=== PATIENT | male | born 1965 | race Caucasian/White ===

== ENCOUNTER 2017-08-29 07:27 | Inpatient (IN) | payer MEDICAID ==
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
--- NOTE | 2017-08-29 07:44 | CPEKG ---
Heart Rate: 103 RR Interval: 583 P-R Interval: 180 QRSD Interval: 90 QT Interval: 364 QTC Interval: 477 P Justice: 64 QRS Justice: -3 T Wave Justice: 14 EKG Severity - BORDERLINE ECG - EKG Impression: SINUS TACHYCARDIA EKG Impression: BORDERLINE T ABNORMALITIES, ANTERIOR LEADS EKG Impression: BORDERLINE PROLONGED QT INTERVAL Electronically Signed By: Cyndi Yoon 29-Aug-2017 08:13:20
[2017-08-29] MEDS ORDERED: ASPIRIN 81 MG CHEWABLE TAB PO ONE (07:51)
[2017-08-29] MEDS ORDERED: NITROGLYCERIN 0.4 MG BTL SL PRN (07:51)
[2017-08-29] MEDS ORDERED: PREGABALIN 150 MG CAP PO ONE (08:03)
[2017-08-29 08:11] LABS: PLATELET COUNT 176 10^3/uL (150-400)
[2017-08-29 08:20] LABS: INR 1.65 (0.83-1.16); PROTIME(PATIENT) 19.6 SEC (12.0-15.0)
[2017-08-29] MEDS ORDERED: HYDROmorphONE/DILAUDID 1 MG/ML INJ IVP ONE ×2 (08:40→09:22)
[2017-08-29] MEDS ORDERED: OXYCODONE/APAP 5/325 TAB PO ONE (10:01)
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
[2017-08-29] MEDS ORDERED: NON-FORMULARY NEW DRUG (Oxycodone Hcl/Acetaminophen [Percocet 10-325 Mg Tablet] 1 EACH) PO PRN (13:17)
[2017-08-29] MEDS ORDERED: OXYCODONE/APAP 5/325 TAB PO PRN (13:20)
[2017-08-29] MEDS ORDERED: METOPROLOL SUCCINATE XR 100 MG TAB PO SCH (13:30)
[2017-08-29] MEDS ORDERED: BISACODYL 10 MG SUPP PR PRN (13:31)
[2017-08-29] MEDS ORDERED: HYDROmorphONE/DILAUDID 1 MG/ML INJ IVP PRN (13:31)
[2017-08-29] MEDS ORDERED: LACTULOSE 20 GM/30 ML UDCUP PO PRN (13:31)
[2017-08-29] MEDS ORDERED: MAGNESIUM HYDROXIDE 30 ML UDCUP PO PRN (13:31)
[2017-08-29] MEDS ORDERED: METOPROLOL TARTRATE 5 MG/5 ML INJ IVP ONE ×2 (13:47→14:16)
[2017-08-29] MEDS ORDERED: ONDANSETRON DISINTEGRATING 4 MG TAB PO PRN (13:50)
[2017-08-29] MEDS ORDERED: ACETAMINOPHEN 325 MG TAB PO PRN (13:50)
[2017-08-29] MEDS ORDERED: ONDANSETRON 4 MG/2 ML VIAL IVP PRN (13:50)
[2017-08-29] MEDS ORDERED: LR 1,000 ML IV SCH (14:00)
[2017-08-29] MEDS ORDERED: IOPAMIDOL (ISOVUE 370) 100 ML BTL IV ONE (14:01)
[2017-08-29] MEDS: HYDROmorphONE/DILAUDID 1 MG/ML INJ IVP PRN ×4 (14:01→21:20)
[2017-08-29] MEDS: guaiFENesin 600 MG TAB.ER PO SCH ×2 (14:43→19:52)
[2017-08-29] MEDS: OXYCODONE/APAP 5/325 TAB PO PRN ×2 (14:44→19:51)
--- NOTE | 2017-08-29 14:47 | GHP ---
[f rep st] HISTORY AND PHYSICAL DATE OF ADMISSION: 08/29/2017 CHIEF COMPLAINT: Chest pain, shortness of breath. HISTORY OF PRESENT ILLNESS: This is a 51-year-old male with a history of coronary artery disease, PE , who presents with chest pain and shortness of breath. This started about 1 a.m., associated with s ignificant sputum production. [facility], and has been exposed to m any other people who are sick. He has had some subjective fevers as well as myalgias. Chest pain de scribed initially as sharp, stabbing, currently more dull, centrally located. This is reminiscent of his previous PE. He tells me he had an AZ 5 years ago, which prompted a catheterization, at which t gayle he did not have any stents placed. He has severe all over body pain, which is worse now than nor mal, but he is on chronic narcotics. Likely, did not take his Lyrica today. He is tells me he has b een compliant with his medications, including Xarelto and metoprolol, though he does not know them by name. PAST MEDICAL/SURGICAL HISTORY: 1. Coronary artery disease, with no interventions. 2. PE 1-1/2 years ago. 3. History of atrial fibrillation, on Xarelto. 4. Hypertension. 5. Hyperlipidemia. 6. Bilateral ankle fractures. 7. Left hip fracture. 8. Lumbar fractures. 9. Chronic pain, on continuous narcotics. MEDICATIONS: Please see medication reconciliation. ALLERGIES: No known drug allergies. FAMILY HISTORY: Both parents had an AZ at a young age. SOCIAL HISTORY: He is currently homeless. He has only been homeless for a very short time. He was in rehab up until about 3 weeks ago, given his left hip surgery. He occasionally drinks. He does no t smoke. REVIEW OF SYSTEMS: 10-point Review of Systems is conducted and is negative except per HPI. PHYSICAL EXAM: VITAL SIGNS: Blood pressure 185/93, heart rate 120, respiration rate 16, saturating 98% on 2 L, temperature is 37.3. GENERAL: A pleasant man who is resting comfortably, in no acute di stress. HEENT: Shows him to be normocephalic, atraumatic. CARDIOVASCULAR: Shows him to be tachyca rdic but regular. There are no murmurs, rubs, or gallops. PULMONARY: Lungs clear to auscultation b ilaterally, though he has diminished breath sounds. ABDOMEN: Soft, nontender, nondistended. SKIN: Shows no rash. : Shows no [place]. NEUROLOGIC: Shows him to be alert and oriented x3. He is mov ing all extremities. PSYCHIATRIC: Shows normal mood and affect. EXTREMITIES: Shows left knee to h ave significant abrasions and ecchymosis. LABS: White count is 10.1, hemoglobin is 12, platelets are 187. INR was 1.65. Basic metabolic pane l is normal. Troponin is negative. BNP is 51. DATA: 1. Lower extremity ultrasound is negative for DVT. 2. Knee x-ray shows negative for acute fracture. 3. Chest x-ray, which I personally viewed and interpreted, shows interstitial infiltrates. 4. EKG, which I personally viewed and interpreted, shows sinus rhythm. The rate is 103. He has T-w ave flattening in aVF. IMPRESSION AND PLAN: 1. Chest pain: Musculoskeletal, pulmonary embolus, acute coronary syndrome are all in the different ial. Also, potentially due to a pneumonia. I am unclear on his reliability in terms of his medicati on compliance, although his INR would argue that he has been taking Xarelto. Regardless, will get CT angio, trend his troponins, repeat an EKG tomorrow, treat musculoskeletal pain for now. If he had a n acute myocardial infarction at 1 a.m., I would suspect his troponin would have already been elevate d. Will likely get an inpatient Lexiscan test given his history, pending clinical course. 2. Tachycardia: Due to infection versus pulmonary embolus. Will check CT angiogram, which will als o give us a better look at his lungs. Sent respiratory viral panel PCR, blood cultures, sputum cultu re. Will empirically treat him with antibiotics. Will provide him with a liter bolus of lactated Ri nger's, and then continue lactated Ringer's. Chest x-ray was questionably volume overloaded, though I think this more represents a viral or bacterial process. Will also strongly consider intravenous L opressor, given his chest pain. 3. Coronary artery disease: Continue aspirin, Xarelto for now. 4. Pulmonary embolus a year and half ago: Continue Xarelto for now. 5. Atrial fibrillation: Currently sinus tachycardia. He is on Xarelto and metoprolol. 6. Hypertension: Metoprolol. 7. Hyperlipidemia: Statin. 8. Chronic pain on continuous narcotics: Will provide him with intravenous Dilaudid for now, as wel l as oral Percocet. Will continue his Lyrica. 9. Code status: He is clear that he would like to be do not resuscitate. He clearly understands e implications of this. 10. Venous thromboembolism risk: Checking CT angiogram. Continue Xarelto. /[id number]/MODL
[2017-08-29] MEDS ORDERED: NON-FORMULARY NEW DRUG (Pregabalin [Lyrica] 200 MG) PO SCH (16:00)
[2017-08-29] MEDS: PREGABALIN 100 MG CAP PO SCH ×2 (16:18→21:20)
[2017-08-29] MEDS: LORazepam 1 MG TAB PO PRN ×2 (17:24→21:20)
--- NOTE | 2017-08-29 17:27 | CPEKG ---
Heart Rate: 108 RR Interval: 556 P-R Interval: 180 QRSD Interval: 86 QT Interval: 352 QTC Interval: 472 P [place]: 48 QRS [place]: -16 T Wave [place]: 10 EKG Severity - OTHERWISE NORMAL ECG - EKG Impression: SINUS TACHYCARDIA EKG Impression: BORDERLINE LEFT AXIS DEVIATION Electronically Signed By: Giovanni Barbosa 31-Aug-2017 07:56:16
[2017-08-29] MEDS: METOPROLOL TARTRATE 50 MG TAB PO SCH (17:38)
[2017-08-29] MEDS: LR 1,000 ML IV SCH (19:51)
[2017-08-29] MEDS: SENNOSIDES/DOCUSATE SODIUM TAB PO SCH (19:52)
[2017-08-29] MEDS: ATORVASTATIN CALCIUM 10 MG TAB PO SCH (19:52)
[2017-08-30] MEDS: OXYCODONE/APAP 5/325 TAB PO PRN ×5 (01:06→20:48)
[2017-08-30] MEDS: HYDROmorphONE/DILAUDID 1 MG/ML INJ IVP PRN ×11 (01:06→23:06)
[2017-08-30] MEDS: LR 1,000 ML IV SCH (04:17)
[2017-08-30 04:20] LABS: PLATELET COUNT 163 10^3/uL (150-400)
[2017-08-30] MEDS ORDERED: METOPROLOL SUCCINATE XR 100 MG TAB PO SCH (09:00)
[2017-08-30] MEDS: PREGABALIN 100 MG CAP PO SCH ×3 (09:23→20:48)
[2017-08-30] MEDS: guaiFENesin 600 MG TAB.ER PO SCH ×2 (09:23→20:47)
[2017-08-30] MEDS: SENNOSIDES/DOCUSATE SODIUM TAB PO SCH ×2 (09:24→20:47)
[2017-08-30] MEDS: ASPIRIN 81 MG CHEWABLE TAB PO SCH (09:24)
[2017-08-30] MEDS: METOPROLOL TARTRATE 50 MG TAB PO SCH ×2 (09:24→20:47)
[2017-08-30] MEDS: RIVAROXABAN 20 MG TAB PO SCH (09:24)
[2017-08-30] MEDS: POLYETHYLENE GLYCOL 3350 17 GM PKT PO PRN (10:23)
--- NOTE | 2017-08-30 14:46 | HOSPPROG ---
Hospitalist Progress Note Assessment/Plan: # pneumonia, ddx coronavirus vs bacterial - cont empiric levaquin given degree of tackycardia yesterday, consider dc abx tomorrow # chest pain, reported TN - joseph tomorrow # chronic pain on continuous narcotics - cont IV and PO; we discussed that we will wean iv narcotics tomorrow # L knee swelling/ecchymosis - reports inability to bear weight - CT today - PT/OT - may need SNF - follow with Dr Barry for ortho issues # tachycardia (sinus) - may have been d/t pain resolved today - stop IVF - cont metop # htn - cont metop, follow # hx PE - xarelto # hx a-fib - NSR now, cont metop and xarelto Subjective: still all over pain, mostly in chest, back and legs Objective: Vital Signs Temp Pulse Resp BP Pulse Ox 36.7 C 78 16 143/77 H 98 08/30/17 12:30 08/30/17 12:30 08/30/17 12:30 08/30/17 12:30 08/30/17 12:30 Microbiology 08/29/17 16:20 - Final Sputum, Expectorated 08/29/17 12:45 Respiratory Panel (PCR) - Final Nasal, Sinus - Swab Coronavirus Nl63 Detected Laboratory Results 08/30/17 04:00 08/30/17 04:00 08/29/17 08/30/17 08/31/17 05:59 05:59 05:59 Intake Total 4880 Output Total 3100 550 Balance 1780 -550 PT 19.6 SEC (12.0-15.0) H 08/29/17 08:04 INR 1.65 (0.83-1.16) H 08/29/17 08:04 CTA reviewed tele reviewed - Physical Exam Constitutional: no apparent distress, appears nourished Cardiovascular: regular rate and rhythym, no murmur, rub, or gallop Respiratory: no respiratory distress, no rales or rhonchi, clear to auscultation Gastrointestinal: normoactive bowel sounds, soft, non-tender abdomen, no palpable masses Musculoskeletal: other (marked L knee swelling and ecchymosis) ICD10 Worksheet Patient Problems: Problems Problem Status Onset Chest pain Acute Chronic pain Acute
[2017-08-30] MEDS: ATORVASTATIN CALCIUM 10 MG TAB PO SCH (20:47)
[2017-08-30] MEDS: LISINOPRIL 10 MG TAB PO SCH (20:48)
[2017-08-31] MEDS: HYDROmorphONE/DILAUDID 1 MG/ML INJ IVP PRN ×8 (01:26→22:20)
[2017-08-31] MEDS: OXYCODONE/APAP 5/325 TAB PO PRN ×5 (01:28→20:18)
[2017-08-31] MEDS: LORazepam 1 MG TAB PO PRN ×3 (03:19→22:25)
[2017-08-31 04:17] LABS: PLATELET COUNT 171 10^3/uL (150-400)
[2017-08-31] MEDS: LISINOPRIL 10 MG TAB PO SCH ×2 (08:41→20:19)
[2017-08-31] MEDS: RIVAROXABAN 20 MG TAB PO SCH (08:41)
[2017-08-31] MEDS: guaiFENesin 600 MG TAB.ER PO SCH ×2 (08:41→20:19)
[2017-08-31] MEDS: METOPROLOL TARTRATE 50 MG TAB PO SCH ×2 (08:41→20:19)
[2017-08-31] MEDS: ASPIRIN 81 MG CHEWABLE TAB PO SCH (08:41)
[2017-08-31] MEDS: PREGABALIN 100 MG CAP PO SCH ×3 (08:41→20:20)
[2017-08-31] MEDS: SENNOSIDES/DOCUSATE SODIUM TAB PO SCH ×2 (08:41→20:19)
[2017-08-31] MEDS ORDERED: REGADENOSON 0.4 MG/5 ML SYR IVP ONE (10:46)
--- NOTE | 2017-08-31 11:35 | PDMN ---
Medical Necessity Medical necessity: Change to IP, as of 08/30/17, per MD; los >2 mn for ongoing management of pneumonia, chest pain r/t reported IL, L knee swelling/ecchymosis ; admit for further workup/monitoring, IV abx/pain meds & therapies; hx AFIB on AC, PE, HTN, CAD; per progress note & order 08/30/17
[2017-08-31] MEDS ORDERED: LORazepam 2 MG/ML INJ IVP ONE (12:16)
[2017-08-31] MEDS ORDERED: HYDROmorphONE/DILAUDID 1 MG/ML INJ IVP ONE (12:17)
--- NOTE | 2017-08-31 12:19 | HOSPPROG ---
Hospitalist Progress Note Assessment/Plan: # pneumonia, ddx coronavirus vs bacterial - stop abx today and follow # chest pain, reported NM - joseph today if he can tolerate # chronic pain on continuous narcotics - cont IV and PO; wean dilaudid IV today to 0.5mg IV Q2H # L knee swelling/ecchymosis/hematoma - reports inability to bear weight - discussed with Dr Garnett who will consult - PT/OT # tachycardia (sinus) - resolved # htn - cont metop, follow # hx PE - xarelto # hx a-fib - NSR now, cont metop and xarelto Subjective: unable to tolerate NM stress test; very concerned about reducing dilaudid Objective: Vital Signs Temp Pulse Resp BP Pulse Ox 37.0 C 95 18 127/77 H 98 08/31/17 08:00 08/31/17 08:00 08/31/17 08:00 08/31/17 08:00 08/31/17 08:00 Laboratory Results 08/31/17 04:06 08/30/17 08/31/17 09/01/17 05:59 05:59 05:59 Intake Total 1350 Output Total 2400 Balance -1050 PT 19.6 SEC (12.0-15.0) H 08/29/17 08:04 INR 1.65 (0.83-1.16) H 08/29/17 08:[address] Garnett - Physical Exam Constitutional: obese Cardiovascular: regular rate and rhythym, no murmur, rub, or gallop Respiratory: no respiratory distress, no rales or rhonchi, clear to auscultation Gastrointestinal: normoactive bowel sounds, soft, non-tender abdomen, no palpable masses ICD10 Worksheet Patient Problems: Problems Problem Status Onset Chest pain Acute Chronic pain Acute
--- NOTE | 2017-08-31 14:09 | PDCARST ---
CAR Stress Test Results Type of Stress Test: Lexiscan stress test Indication: cp Description of Procedure: After informed consent was obtained, pt was established to ECG, blood pressure, HR and oximetry monitoring. STRESS EKG AND HEMODYNAMIC DATA. Resting heart rate: 76 BPM. Resting ECG: SR. Resting blood pressure: 122/78 mmHg. O2 saturation at rest: 98%. Peak heart rate: 109 BPM. Peak blood pressure: 118/70 mmHg. Arrhythmias: Rest: Stress: Recovery: none. The patient experienced no typical symptoms of angina during stress or recovery. Stress/Infusion ECG: No change in rhythm with no significant ST/T wave changes. Stress/infusion O2 saturation: 98% Impression: Uneventful lexiscan infusion. Conclusion: Await nuclear images.
--- NOTE | 2017-08-31 16:24 | GCON ---
[f rep st] CONSULTATION REASON FOR CONSULTATION: Left knee pain. HISTORY OF PRESENT ILLNESS: The patient is a 51-year-old, with a 2-day history of left knee pain. H e states that he struck the lateral aspect of his knee on an elevator door, precipitating his symptom s. He does have a history of knee arthrosis and states that he was told by the surgeon who performed his left hip arthroplasty that he is "[id number]" on his left knee and needs to have it "replaced. " He is having difficulty ambulating on his left knee. PHYSICAL EXAMINATION: There is ecchymosis with swelling about the lateral aspect of his knee. There is a relatively firm mass consistent with a fluid collection along the lateral aspect of the knee pr oximal to the joint line. He has tenderness over this area with ecchymosis overlying it. Passively, his knee extends almost to full and flexes easily to 90 degrees. IMAGING: A CT scan recently obtained shows evidence of fluid collection consistent with a hematoma a long the lateral aspect of his knee just superficial to his vastus lateralis. ASSESSMENT: Left lateral thigh hematoma. PLAN: The fact that he is anticoagulated is likely due in part to this hematoma occurring. He is al lowed to be weightbearing as tolerated. There does not appear to be any indications for operative ev acuation at this point. If symptoms persist or there is expansion of the hematoma, an ultrasound-morelia ded aspiration could be considered. Followup will be on a p.r.n. basis. /[id number]/MODL
[2017-08-31] MEDS: ATORVASTATIN CALCIUM 10 MG TAB PO SCH (20:19)
[2017-09-01] MEDS: HYDROmorphONE/DILAUDID 1 MG/ML INJ IVP PRN ×11 (00:29→23:01)
[2017-09-01] MEDS: OXYCODONE/APAP 5/325 TAB PO PRN ×3 (00:29→08:34)
[2017-09-01 04:50] LABS: PLATELET COUNT 192 10^3/uL (150-400)
[2017-09-01] MEDS: RIVAROXABAN 20 MG TAB PO SCH (08:33)
[2017-09-01] MEDS: SENNOSIDES/DOCUSATE SODIUM TAB PO SCH ×2 (08:33→20:54)
[2017-09-01] MEDS: LISINOPRIL 10 MG TAB PO SCH ×2 (08:34→20:53)
[2017-09-01] MEDS: guaiFENesin 600 MG TAB.ER PO SCH ×2 (08:34→20:53)
[2017-09-01] MEDS: METOPROLOL TARTRATE 50 MG TAB PO SCH ×2 (08:34→20:53)
[2017-09-01] MEDS: PREGABALIN 100 MG CAP PO SCH ×3 (08:34→20:53)
[2017-09-01] MEDS: ASPIRIN 81 MG CHEWABLE TAB PO SCH (08:34)
[2017-09-01] MEDS ORDERED: ACETAMINOPHEN 500 MG TAB PO PRN (09:08)
[2017-09-01] MEDS ORDERED: fentaNYL 50 MCG PATCH TD SCH (09:15)
[2017-09-01] MEDS ORDERED: fentaNYL 75 MCG PATCH TD SCH (09:15)
--- NOTE | 2017-09-01 10:04 | HOSPPROG ---
Hospitalist Progress Note Assessment/Plan: # coronavirus bronchitis/pneumonia - no antibiotics, follow # chest pain, reported [place] - joseph with apical thinning - likely artifact - already on xarelto, statin # chronic pain on continuous narcotics - he clearly has a physical dependency which is difficult to address. - start fentanyl patch at 75mcg/hr - cont dilaudid 0.5 Q2H prn - cont oxy 10mg Q4 prn - schedule apap # L knee swelling/ecchymosis/hematoma - unable to bear weight - per Dr Garnett, no intervention - he is anticoagulated on xarelto - PT/OT # tachycardia (sinus) - resolved # htn - cont metop, follow # hx PE - xarelto # hx a-fib - NSR now, cont metop and xarelto Subjective: pain worse today after decreasing dilaudid Objective: Vital Signs Temp Pulse Resp BP Pulse Ox 37.1 C 111 H 17 137/91 H 100 09/01/17 08:00 09/01/17 08:00 09/01/17 08:00 09/01/17 08:00 09/01/17 08:00 Laboratory Results 09/01/17 04:34 09/01/17 04:34 08/31/17 09/01/17 09/02/17 05:59 05:59 05:59 Intake Total 1350 3200 Output Total 2400 2150 600 Balance -1050 1050 -600 PT 19.6 SEC (12.0-15.0) H 08/29/17 08:04 INR 1.65 (0.83-1.16) H 08/29/17 08:04 high risk on iv narcotics - Physical Exam Constitutional: no apparent distress, appears nourished Cardiovascular: no murmur, rub, or gallop, tachycardia Respiratory: no respiratory distress, no rales or rhonchi, clear to auscultation Gastrointestinal: normoactive bowel sounds, soft, non-tender abdomen, no palpable masses ICD10 Worksheet Patient Problems: Problems Problem Status Onset Chest pain Acute Chronic pain Acute
[2017-09-01] MEDS: LORazepam 1 MG TAB PO PRN (11:00)
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
[2017-09-01] MEDS: oxyCODONE IR 5 MG TAB PO PRN ×3 (12:39→20:54)
--- NOTE | 2017-09-01 14:13 | ASMTCMCOM ---
CM Note CM Note Notes: CM spoke w/ Holli from [employer]. Pt does not have LTC Medicaid. CM completed ULTC-100 and submitted it to [facility] for review. [facility] is unable to accept pt at this time. Pt is agreeable w/ referral made to [facility]. CM to follow. Plan: SNF Date Signed: 09/01/2017 02:13 PM Electronically Signed By:KIM Umaña
[2017-09-01] MEDS: ATORVASTATIN CALCIUM 10 MG TAB PO SCH (20:53)
[2017-09-02] MEDS: HYDROmorphONE/DILAUDID 1 MG/ML INJ IVP PRN ×10 (01:05→23:00)
[2017-09-02] MEDS: oxyCODONE IR 5 MG TAB PO PRN ×5 (01:05→20:42)
[2017-09-02] MEDS: LORazepam 1 MG TAB PO PRN ×3 (03:12→20:57)
[2017-09-02 07:12] LABS: PLATELET COUNT 211 10^3/uL (150-400)
[2017-09-02] MEDS: POLYETHYLENE GLYCOL 3350 17 GM PKT PO PRN (09:23)
[2017-09-02] MEDS: SENNOSIDES/DOCUSATE SODIUM TAB PO SCH ×2 (09:24→20:41)
[2017-09-02] MEDS: guaiFENesin 600 MG TAB.ER PO SCH ×2 (09:24→20:41)
[2017-09-02] MEDS: PREGABALIN 100 MG CAP PO SCH ×3 (09:24→22:59)
[2017-09-02] MEDS: RIVAROXABAN 20 MG TAB PO SCH (09:25)
[2017-09-02] MEDS: LISINOPRIL 10 MG TAB PO SCH ×2 (09:25→20:41)
[2017-09-02] MEDS: ASPIRIN 81 MG CHEWABLE TAB PO SCH (09:25)
[2017-09-02] MEDS: METOPROLOL TARTRATE 50 MG TAB PO SCH ×2 (09:25→20:42)
--- NOTE | 2017-09-02 09:35 | HOSPPROG ---
Hospitalist Progress Note Assessment/Plan: # coronavirus bronchitis/pneumonia - no antibiotics, follow # chest pain, reported [place] - joseph with apical thinning - likely artifact; check echo to verify - already on xarelto, statin # chronic pain on continuous narcotics - he clearly has a physical dependency which is difficult to address. - incr fentanyl patch to 100 mcg/hr - cont dilaudid 0.5 Q2H prn - cont oxy 10mg Q4 prn - schedule apap # L knee swelling/ecchymosis/hematoma - unable to bear weight - per Dr Garnett, no intervention - he is anticoagulated on xarelto - PT/OT # tachycardia (sinus) - seems related to his level of pain and withdrawal; better this am # leukocytosis - suspect stress reaction rather than infection # htn - cont metop, follow # hx PE - xarelto # hx a-fib - NSR now, cont metop and xarelto # dispo - pending placement at SNF; CM involved Subjective: pain still significant; did not sleep well last night Objective: Vital Signs Temp Pulse Resp BP Pulse Ox 37.3 C 108 H 13 145/88 H 99 09/02/17 07:21 09/02/17 07:21 09/02/17 07:21 09/02/17 07:21 09/02/17 07:21 Laboratory Results 09/02/17 06:55 09/02/17 06:55 09/01/17 09/02/17 09/03/17 05:59 05:59 05:59 Intake Total 3200 1800 Output Total 2150 2900 Balance 1050 -1100 PT 19.6 SEC (12.0-15.0) H 08/29/17 08:04 INR 1.65 (0.83-1.16) H 08/29/17 08:04 high risk on iv narcotics - Physical Exam Constitutional: uncomfortable Cardiovascular: regular rate and rhythym, no murmur, rub, or gallop Respiratory: no respiratory distress, no rales or rhonchi, clear to auscultation Gastrointestinal: normoactive bowel sounds, soft, non-tender abdomen, no palpable masses ICD10 Worksheet Patient Problems: Problems Problem Status Onset Chest pain Acute Chronic pain Acute
[2017-09-02] MEDS: fentaNYL 100 MCG PATCH TD SCH (10:14)
--- NOTE | 2017-09-02 11:32 | ECHO ---
[email or web address] [address] Main: [phone] Fax: Transthoracic Echocardiogram Name: BENNY WINKLER MR#: [id number] Study Date: 09/02/2017 Study Time: 10:14 AM Date of : 1965 Age: 51 year(s) Height: 182.9 cm (72 in.) Weight: 128.82 kg (284 lb.) BSA: 2.47 m2 Gender: Male Examination: Echo Indication: tachycardia Image Quality: Technically Difficult Contrast: Requested by: Law Alexandra BP: 145 mmHg/88 mmHg Heart Rate: Rhythm: Tachycardia Indication: tachycardia Procedure Staff Technology Education Teacher: Minoo Kirby Reading Physician: Juan Pena Requesting Provider: Conclusions: No pericardial effusion. Preserved left ventricular systolic function with ejection fraction of 59%. No significant valvular abnormalities by Doppler Or 2 dimensional study. Measurements: Chambers Valvular Assessment AV/MV Valvular Assessment TV/PV Normal Normal Normal Name Value Range Name Value Range Name Value Range Ao Emilee (MM): 3.7 cm (2.2 cm-3.7 AV Vmax: 1.44 m/s (1 m/s-1.7 PV Vmax: 0.76 m/s (0.6 m/s-0.9 cm) m/s) m/s) IVSd (2D): 1.1 cm (0.6 cm-1.1 AV maxP mmHg ( - ) PV PGmax: 2 mmHg ( - ) cm) LVOT Vmax: 1.18 m/s (0.7 m/s-1.1 LVDd (2D): 5.4 cm (4.2 cm-5.9 m/s) cm) MV E Vmax: 0.83 m/s ( - ) LVDs (2D): 3.7 cm (2.1 cm-4 MV A Vmax: 0.81 m/s ( - ) cm) MV E/A: 1.02 ( - ) LVPWd (2D): 1.3 cm (0.6 cm-1 cm) LVEF (2D): 59 (>=54 %) RVDd(2D): 4.1 cm (1.9 cm-3.8 cmmm) Continued Measurements: Valvular Assessment AV/MV Name Value MV DecTime: 166 m/s MV E/E' Septal: 10.90 MV E/E' Lateral: 14.20 Additional Vessels Patient: BENNY WINKLER Study Date: 09/02/2017 Page 1 of 2 10:14 AM Name Value Ao Ascendin.2 cm Findings: Left Ventricle: Normal size left ventricle. Mild concentric LV hypertrophy. Normal global systolic LV function. EF is 59 %. Due to poor endocardial definitio and sub-optimal images it is difficult to rule out wall motion abnormalities. Normal diastolic LV function. Right Ventricle: Upper normal size right ventricle. Normal RV function. Left Atrium: The left atrium is normal in size. Right Atrium: The right atrium is normal in size. Mitral Valve: The mitral valve is normal in appearance and function. There is no significant mitral valve regurgitation. No mitral stenosis is present. Aortic Valve: Aortic valve is not visualized. There is no aortic valve regurgitation. No aortic valve stenosis is present. Tricuspid Valve: Tricuspid valve not well visualized. There is no significant tricuspid valve regurgitation. Pulmonic Valve: Pulmonary valve not visualized. Aorta: Normal size aortic root measuring 3.7 cm. Normal size ascending aorta measuring 3.2 cm. Pericardium: No pericardial effusion. (No Signature Object) Patient: BENNY WINKLER Study Date: 09/02/2017 Page 2 of 2 10:14 AM [id number]
--- NOTE | 2017-09-02 16:36 | ASMTCMCOM ---
CM Note CM Note Notes: CM spoke w/ Chanel Sanders from [facility]. She came yesterday to assess pt for LTC Medicaid. She is in the process of requesting records and will have an answer most likely by tomorrow. CM called the [facility] on Aging and requested info on funds for monthly electric wheelchair payments. CM met w/ pt for dispo planning and provided him updates. CM has been in contact w/ Tk from [facility]. They are in the process of obtaining more information about his Medicaid. CM to follow. Plan: SNF Date Signed: 09/02/2017 04:36 PM Electronically Signed By:KIM Umaña
[2017-09-02] MEDS: ATORVASTATIN CALCIUM 10 MG TAB PO SCH (20:42)
[2017-09-03] MEDS: oxyCODONE IR 5 MG TAB PO PRN ×6 (00:12→23:56)
[2017-09-03] MEDS: LORazepam 1 MG TAB PO PRN ×5 (01:09→23:56)
[2017-09-03] MEDS: HYDROmorphONE/DILAUDID 1 MG/ML INJ IVP PRN ×4 (01:09→11:35)
[2017-09-03] MEDS: LISINOPRIL 10 MG TAB PO SCH ×2 (08:17→21:28)
[2017-09-03] MEDS: SENNOSIDES/DOCUSATE SODIUM TAB PO SCH ×2 (08:17→21:29)
[2017-09-03] MEDS: ASPIRIN 81 MG CHEWABLE TAB PO SCH (08:17)
[2017-09-03] MEDS: guaiFENesin 600 MG TAB.ER PO SCH ×2 (08:17→21:29)
[2017-09-03] MEDS: PREGABALIN 100 MG CAP PO SCH ×3 (08:17→21:28)
[2017-09-03] MEDS: METOPROLOL TARTRATE 50 MG TAB PO SCH ×2 (08:18→21:28)
[2017-09-03] MEDS: RIVAROXABAN 20 MG TAB PO SCH (08:18)
[2017-09-03 08:23] LABS: PLATELET COUNT 218 10^3/uL (150-400)
--- NOTE | 2017-09-03 12:20 | HOSPPROG ---
Hospitalist Progress Note Assessment/Plan: # coronavirus bronchitis/pneumonia - given persistent leukocytosis, will add doxycycline, plan short course # chest pain, reported [place] - joseph with apical thinning - likely artifact; echo poor quality but normal EF - already on xarelto, statin # chronic pain on continuous narcotics - he clearly has a physical dependency which is difficult to address. - dc dilaudid IV today - would not use additional IV narcotics - cont fentanyl patch to 100 mcg/hr - incr oxy 10mg ->10mg Q4 prn - schedule apap # L knee swelling/ecchymosis/hematoma - unable to bear weight - per Dr Garnett, no intervention - he is anticoagulated on xarelto - PT/OT # tachycardia (sinus) - seems related to his level of pain and withdrawal; better this am # htn - cont metop, follow # hx PE - xarelto # hx a-fib - NSR now, cont metop and xarelto # ?VT on tele - appears artifact, no syncope, all cardiac w/u essentially negative # dispo - pending placement at SNF; CM involved Subjective: ongoing cough; we had a long conversation about his narcotics Objective: Vital Signs Temp Pulse Resp BP Pulse Ox 37.4 C 103 H 18 112/65 97 09/03/17 11:08 09/03/17 11:08 09/03/17 11:08 09/03/17 11:08 09/03/17 11:08 Laboratory Results 09/03/17 08:16 09/03/17 08:16 09/02/17 09/03/17 09/04/17 05:59 05:59 05:59 Intake Total 1800 2800 Output Total 2900 2800 Balance -1100 0 PT 19.6 SEC (12.0-15.0) H 08/29/17 08:04 INR 1.65 (0.83-1.16) H 08/29/17 08:04 tele personally reviewed echo reviewed ICD10 Worksheet Patient Problems: Problems Problem Status Onset Chest pain Acute Chronic pain Acute
--- NOTE | 2017-09-03 16:52 | ASMTCMCOM ---
CM Note CM Note Notes: CM spoke w/ Dr. Alexandra and EVANS Figueroa regarding d/c POC. [facility] and [facility] are still in the process of determining pts eligibility. CM to follow. Plan: SNF under LTC Medicaid at most likely [facility] Date Signed: 09/03/2017 04:52 PM Electronically Signed By:KIM Umaña
--- NOTE | 2017-09-03 16:57 | ASMTCMCOM ---
CM Note CM Note Notes: CM received a call back from [facility] regarding pts electric chair. They informed CM that pts MD could order an electric wheelchair and it could be covered under Medicaid and require a prior auth. CM informed Dr. Alexandra of this. Phone number to [facility] is [phone]. Another option is for pt to pay for a refurbished electric wheelchair from [facility] in [place] ranging from $175 to $800 for purchase. CM met w/ pt and informed him of this. CM to follow. Date Signed: 09/03/2017 04:57 PM Electronically Signed By:KIM Umaña
[2017-09-03] MEDS: ACETAMINOPHEN 500 MG TAB PO SCH ×2 (18:16→21:28)
[2017-09-03] MEDS: DOXYCYCLINE HYCLATE 100 MG CAP/TAB PO SCH ×2 (18:16→21:27)
[2017-09-03] MEDS: ATORVASTATIN CALCIUM 10 MG TAB PO SCH (21:27)
[2017-09-03] MEDS: TEMAZEPAM 15 MG CAP PO PRN (21:29)
[2017-09-03] MEDS: traZODone 50 MG TAB PO SCH (21:29)
[2017-09-04] MEDS: oxyCODONE IR 5 MG TAB PO PRN ×5 (03:55→22:01)
[2017-09-04] MEDS: LORazepam 1 MG TAB PO PRN ×4 (03:55→22:04)
[2017-09-04 04:16] LABS: PLATELET COUNT 258 10^3/uL (150-400)
[2017-09-04] MEDS: ACETAMINOPHEN 500 MG TAB PO SCH ×3 (08:42→21:57)
[2017-09-04] MEDS: PREGABALIN 100 MG CAP PO SCH ×3 (08:43→22:00)
[2017-09-04] MEDS: LISINOPRIL 10 MG TAB PO SCH ×2 (08:43→22:00)
[2017-09-04] MEDS: ASPIRIN 81 MG CHEWABLE TAB PO SCH (08:43)
[2017-09-04] MEDS: METOPROLOL TARTRATE 50 MG TAB PO SCH ×2 (08:44→21:58)
[2017-09-04] MEDS: PRAZOSIN HCL 1 MG CAP PO SCH (08:44)
[2017-09-04] MEDS: DOXYCYCLINE HYCLATE 100 MG CAP/TAB PO SCH ×2 (08:44→21:57)
[2017-09-04] MEDS: guaiFENesin 600 MG TAB.ER PO SCH ×2 (08:44→21:57)
[2017-09-04] MEDS: SENNOSIDES/DOCUSATE SODIUM TAB PO SCH ×2 (08:54→21:59)
[2017-09-04] MEDS: POLYETHYLENE GLYCOL 3350 17 GM PKT PO PRN ×2 (08:55→18:31)
[2017-09-04] MEDS: RIVAROXABAN 20 MG TAB PO SCH (08:55)
--- NOTE | 2017-09-04 15:56 | HOSPPROG ---
Hospitalist Progress Note Assessment/Plan: 51 yo M w cp, coronavirus' coronavirus bronchitis/pneumonia - given persistent leukocytosis, will add doxycycline, plan short course day 2/5 chest pain, reported [place] - joseph with apical thinning - likely artifact; echo poor quality but normal EF - already on xarelto, statin dc tele chronic pain on continuous narcotics - he clearly has a physical dependency which is difficult to address. - dc dilaudid IV today - would not use additional IV narcotics - cont fentanyl patch to 100 mcg/hr - incr oxy 10mg ->10mg Q4 prn - schedule apap L knee swelling/ecchymosis/hematoma - unable to bear weight - per Dr Garnett, no intervention - he is anticoagulated on xarelto - PT/OT tachycardia (sinus) - seems related to his level of pain and withdrawal; better this am htn - cont metop, follow hx PE - xarelto hx a-fib - NSR now, cont metop and xarelto ?VT on tele - appears artifact, no syncope, all cardiac w/u essentially negative # dispo - pending placement at SNF; CM involved Subjective: no events tele (interp by me). case d/w dr isidro Objective: Vital Signs Temp Pulse Resp BP Pulse Ox 37.0 C 110 H 16 99/71 L 98 09/04/17 12:05 09/04/17 12:05 09/04/17 12:05 09/04/17 14:33 09/04/17 12:05 Laboratory Results 09/04/17 03:55 09/04/17 03:55 09/03/17 09/04/17 09/05/17 05:59 05:59 05:59 Intake Total 2800 4800 Output Total 2800 2250 Balance 0 2550 PT 19.6 SEC (12.0-15.0) H 08/29/17 08:04 INR 1.65 (0.83-1.16) H 08/29/17 08:04 - Physical Exam Constitutional: no apparent distress, appears nourished Eyes: PERRL, anicteric sclera Ears, Nose, Mouth, Throat: moist mucous membranes, hearing normal Cardiovascular: regular rate and rhythym, no murmur, rub, or gallop Respiratory: no respiratory distress, no rales or rhonchi Gastrointestinal: normoactive bowel sounds, soft, non-tender abdomen Genitourinary: no bladder fullness, No riley in urethra Skin: warm Musculoskeletal: other (large L: knee hematoma) Neurologic: AAOx3 Psychiatric: interacting appropriately ICD10 Worksheet Patient Problems: Problems Problem Status Onset Chest pain Acute Chronic pain Acute
[2017-09-04] MEDS: ATORVASTATIN CALCIUM 10 MG TAB PO SCH (21:56)
[2017-09-04] MEDS: traZODone 50 MG TAB PO SCH (22:00)
[2017-09-05] MEDS: LORazepam 1 MG TAB PO PRN ×4 (04:31→20:46)
[2017-09-05] MEDS: oxyCODONE IR 5 MG TAB PO PRN ×5 (04:32→21:00)
[2017-09-05] MEDS: guaiFENesin 600 MG TAB.ER PO SCH ×2 (08:53→20:45)
[2017-09-05] MEDS: ACETAMINOPHEN 500 MG TAB PO SCH ×3 (08:54→20:44)
[2017-09-05] MEDS: SENNOSIDES/DOCUSATE SODIUM TAB PO SCH ×2 (08:54→20:47)
[2017-09-05] MEDS: DOXYCYCLINE HYCLATE 100 MG CAP/TAB PO SCH (08:54)
[2017-09-05] MEDS: RIVAROXABAN 20 MG TAB PO SCH (08:55)
[2017-09-05] MEDS: PREGABALIN 100 MG CAP PO SCH ×3 (08:55→20:47)
[2017-09-05] MEDS: LISINOPRIL 10 MG TAB PO SCH (08:56)
[2017-09-05] MEDS: METOPROLOL TARTRATE 50 MG TAB PO SCH ×2 (08:56→20:51)
--- NOTE | 2017-09-05 13:30 | HOSPPROG ---
Hospitalist Progress Note Assessment/Plan: 51 yo M w cp, coronavirus, chronic narcotic use coronavirus bronchitis/pneumonia - given persistent leukocytosis, will add doxycycline, plan short course day 3/5 FINESSE: suspected pre renal start IVF dc doxycyline bladder scan chest pain, reported [place] - joseph with apical thinning - likely artifact; echo poor quality but normal EF - already on xarelto, statin dc tele chronic pain on continuous narcotics - he clearly has a physical dependency which is difficult to address. he is pain medication focused, asking for increased doses it appears he is more pain medicine now than he was when he arrived, still angling for IV narcotics - cont fentanyl patch to 100 mcg/hr will not increase - incr oxy 10mg ->20mg Q4 prn will not increase - schedule apap L knee swelling/ecchymosis/hematoma - unable to bear weight - per Dr Garnett, no intervention - he is anticoagulated on xarelto - PT/OT tachycardia (sinus) - seems related to his level of pain and withdrawal; better this am htn - cont metop, follow hx PE - xarelto hx a-fib - NSR now, cont metop and xarelto ?VT on tele - appears artifact, no syncope, all cardiac w/u essentially negative # dispo - pending placement at SNF; CM involved Subjective: asking for pain more pain meds. denies diarhea Objective: Vital Signs Temp Pulse Resp BP Pulse Ox 36.7 C 109 H 19 132/80 H 94 09/05/17 08:00 09/05/17 08:56 09/05/17 08:00 09/05/17 08:56 09/05/17 08:00 Laboratory Results 09/04/17 03:55 09/05/17 04:23 09/04/17 09/05/17 09/06/17 05:59 05:59 05:59 Intake Total 4800 1500 Output Total 2250 1050 Balance 2550 450 PT 19.6 SEC (12.0-15.0) H 08/29/17 08:04 INR 1.65 (0.83-1.16) H 08/29/17 08:04 - Physical Exam Constitutional: no apparent distress, appears nourished Eyes: PERRL, anicteric sclera Ears, Nose, Mouth, Throat: moist mucous membranes, hearing normal Cardiovascular: regular rate and rhythym, no murmur, rub, or gallop Respiratory: no respiratory distress, no rales or rhonchi Gastrointestinal: normoactive bowel sounds, soft, non-tender abdomen Genitourinary: no bladder fullness, No riley in urethra Skin: warm, normal color Musculoskeletal: full muscle strength Neurologic: AAOx3 Psychiatric: interacting appropriately ICD10 Worksheet Patient Problems: Problems Problem Status Onset Chest pain Acute Chronic pain Acute
[2017-09-05] MEDS: LR 1,000 ML IV SCH ×2 (14:45→20:43)
[2017-09-05] MEDS: PRAZOSIN HCL 1 MG CAP PO SCH (14:59)
[2017-09-05] MEDS: fentaNYL 100 MCG PATCH TD SCH (15:55)
[2017-09-05] MEDS: ASPIRIN 81 MG CHEWABLE TAB PO SCH (17:21)
[2017-09-05] MEDS: ATORVASTATIN CALCIUM 10 MG TAB PO SCH (20:45)
[2017-09-05] MEDS: traZODone 50 MG TAB PO SCH (20:47)
[2017-09-06] MEDS: LORazepam 1 MG TAB PO PRN ×4 (00:57→22:37)
[2017-09-06] MEDS: oxyCODONE IR 5 MG TAB PO PRN ×6 (00:57→22:37)
[2017-09-06] MEDS: TEMAZEPAM 15 MG CAP PO PRN (01:11)
[2017-09-06] MEDS: ASPIRIN 81 MG CHEWABLE TAB PO SCH (09:37)
[2017-09-06] MEDS: SENNOSIDES/DOCUSATE SODIUM TAB PO SCH ×2 (09:37→21:42)
[2017-09-06] MEDS: guaiFENesin 600 MG TAB.ER PO SCH ×2 (09:37→21:41)
[2017-09-06] MEDS: ACETAMINOPHEN 500 MG TAB PO SCH ×3 (09:38→21:39)
[2017-09-06] MEDS: PREGABALIN 100 MG CAP PO SCH ×3 (09:38→21:39)
[2017-09-06] MEDS: METOPROLOL TARTRATE 50 MG TAB PO SCH ×2 (09:39→21:40)
[2017-09-06] MEDS: PRAZOSIN HCL 1 MG CAP PO SCH (09:40)
[2017-09-06] MEDS: RIVAROXABAN 20 MG TAB PO SCH (09:41)
[2017-09-06] MEDS: POLYETHYLENE GLYCOL 3350 17 GM PKT PO PRN (11:35)
--- NOTE | 2017-09-06 15:26 | ASMTCMCOM ---
CM Note CM Note Notes: Left message for Tk,Admissions at [facility] [place], re: potential admit of patient. Tk won't be in until Wednesday. Date Signed: 09/06/2017 03:26 PM Electronically Signed By:Ijeoma Smith LCSW
--- NOTE | 2017-09-06 15:49 | HOSPPROG ---
Hospitalist Progress Note Assessment/Plan: 51 yo M w cp, coronavirus, chronic narcotic use coronavirus bronchitis/pneumonia s/p doxycycline hypoxemia: likely atelecatsis given habitus and that e is in bed add IS FINESSE: suspected pre renal start IVF dc doxycyline bladder scan chest pain, reported [place] - joseph with apical thinning - likely artifact; echo poor quality but normal EF - already on xarelto, statin dc tele chronic pain on continuous narcotics - he clearly has a physical dependency which is difficult to address. he is pain medication focused, asking for increased doses it appears he is more pain medicine now than he was when he arrived, still angling for IV narcotics - cont fentanyl patch to 100 mcg/hr will not increase - incr oxy 10mg ->20mg Q4 prn will not increase - schedule apap L knee swelling/ecchymosis/hematoma - unable to bear weight - per Dr Garnett, no intervention - he is anticoagulated on xarelto - PT/OT tachycardia (sinus) - seems related to his level of pain and withdrawal; better this am htn - cont metop, follow hx PE - xarelto hx a-fib - NSR now, cont metop and xarelto ?VT on tele - appears artifact, no syncope, all cardiac w/u essentially negative # dispo - pending placement at SNF; CM involved Subjective: cr normalized Objective: Vital Signs Temp Pulse Resp BP Pulse Ox 37.3 C 100 12 135/52 H 99 09/06/17 15:25 09/06/17 15:25 09/06/17 15:25 09/06/17 15:25 09/06/17 15:25 Laboratory Results 09/04/17 03:55 09/06/17 04:56 09/05/17 09/06/17 09/07/17 05:59 05:59 05:59 Intake Total 1500 2507 Output Total 1050 3050 2700 Balance 450 -543 -2700 PT 19.6 SEC (12.0-15.0) H 08/29/17 08:04 INR 1.65 (0.83-1.16) H 08/29/17 08:04 - Physical Exam Constitutional: no apparent distress, appears nourished Eyes: PERRL, anicteric sclera Ears, Nose, Mouth, Throat: moist mucous membranes, hearing normal Cardiovascular: regular rate and rhythym, no murmur, rub, or gallop Respiratory: other (bibasilar crackles that clear w coughing) Gastrointestinal: normoactive bowel sounds, soft, non-tender abdomen Genitourinary: no bladder fullness, No riley in urethra Skin: warm, normal color Musculoskeletal: full muscle strength, no muscle tenderness Neurologic: AAOx3, sensation intact bilaterally ICD10 Worksheet Patient Problems: Problems Problem Status Onset Chest pain Acute Chronic pain Acute
[2017-09-06] MEDS: ATORVASTATIN CALCIUM 10 MG TAB PO SCH (21:40)
[2017-09-06] MEDS: traZODone 50 MG TAB PO SCH (21:42)
[2017-09-07] MEDS: oxyCODONE IR 5 MG TAB PO PRN ×5 (03:24→22:04)
[2017-09-07] MEDS: LORazepam 1 MG TAB PO PRN ×5 (03:24→22:08)
[2017-09-07] MEDS: guaiFENesin 600 MG TAB.ER PO SCH ×2 (08:44→22:04)
[2017-09-07] MEDS: LISINOPRIL 10 MG TAB PO SCH (08:46)
[2017-09-07] MEDS: RIVAROXABAN 20 MG TAB PO SCH (08:46)
[2017-09-07] MEDS: METOPROLOL TARTRATE 50 MG TAB PO SCH ×2 (08:47→22:03)
[2017-09-07] MEDS: ACETAMINOPHEN 500 MG TAB PO SCH ×3 (08:47→22:03)
[2017-09-07] MEDS: PREGABALIN 100 MG CAP PO SCH ×3 (08:47→22:04)
[2017-09-07] MEDS: PRAZOSIN HCL 1 MG CAP PO SCH (08:47)
[2017-09-07] MEDS: ASPIRIN 81 MG CHEWABLE TAB PO SCH (08:47)
[2017-09-07] MEDS: SENNOSIDES/DOCUSATE SODIUM TAB PO SCH ×2 (08:48→22:03)
--- NOTE | 2017-09-07 16:31 | HOSPPROG ---
Hospitalist Progress Note Assessment/Plan: 51 yo M w cp, coronavirus, chronic narcotic use coronavirus bronchitis/pneumonia s/p doxycycline hypoxemia: likely atelectasis given habitus and that e is in bed add IS FINESSE: suspected pre renal start IVF dc doxycyline bladder scan resolved chest pain, reported [place] - joseph with apical thinning - likely artifact; echo poor quality but normal EF - already on xarelto, statin dc tele chronic pain on continuous narcotics - he clearly has a physical dependency which is difficult to address. he is pain medication focused, asking for increased doses it appears he is more pain medicine now than he was when he arrived, still angling for IV narcotics - cont fentanyl patch to 100 mcg/hr will not increase - incr oxy 10mg ->20mg Q4 prn will not increase - schedule apap L knee swelling/ecchymosis/hematoma - unable to bear weight - per Dr Garnett, no intervention - he is anticoagulated on xarelto - PT/OT 1/- this is improving "inability to walk" seen up and transferring no fracture on imaging tachycardia (sinus) - seems related to his level of pain and withdrawal; better this am htn - cont metop, follow hx PE - xarelto hx a-fib - NSR now, cont metop and xarelto ?VT on tele - appears artifact, no syncope, all cardiac w/u essentially negative # dispo - pending placement at SNF; CM involved Subjective: per nursing, 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 Objective: Vital Signs Temp Pulse Resp BP Pulse Ox 36.8 C 90 16 130/80 H 98 09/07/17 07:47 09/07/17 07:47 09/07/17 07:47 09/07/17 07:47 09/07/17 07:47 Laboratory Results 09/04/17 03:55 09/06/17 04:56 09/06/17 09/07/17 09/08/17 05:59 05:59 05:59 Intake Total 2507 400 Output Total 3050 4150 850 Balance -543 -4150 -450 PT 19.6 SEC (12.0-15.0) H 08/29/17 08:04 INR 1.65 (0.83-1.16) H 08/29/17 08:04 - Physical Exam Constitutional: no apparent distress, appears nourished Eyes: PERRL, anicteric sclera Ears, Nose, Mouth, Throat: moist mucous membranes, hearing normal Cardiovascular: regular rate and rhythym, no murmur, rub, or gallop Respiratory: no respiratory distress, no rales or rhonchi Gastrointestinal: normoactive bowel sounds, soft, non-tender abdomen Genitourinary: no bladder fullness, No riley in urethra Skin: warm, normal color Musculoskeletal: full muscle strength, no muscle tenderness Neurologic: AAOx3 ICD10 Worksheet Patient Problems: Problems Problem Status Onset Chest pain Acute Chronic pain Acute
--- NOTE | 2017-09-07 17:15 | ASMTCMCOM ---
CM Note CM Note Notes: Spoke with Tk at [facility] who says they can admit patient when they get the ULTC 100/PASRR from [facility] and when they get a copy of the application for LTM submitted to [facility]. Denise states she has submitted the LTM application in patient's behalf. Spoke with Curry from [facility] who gave me the phone number for Kathi Sanders, who is managing patient's ULTC 100.Left a message for Kathi to give me a call on whether or not ULTC has been approved. Discharge plan is for patient to go to [facility] for LTC. However, we have to await approval for acceptance of patient to [facility]. Kathi Sanders's number is [phone]. We will need to call her in the morning for an update on the status of patient's application. CM will follow. Date Signed: 09/07/2017 05:15 PM Electronically Signed By:Jenelle Christie LCSW
[2017-09-07] MEDS: traZODone 50 MG TAB PO SCH (22:03)
[2017-09-07] MEDS: ATORVASTATIN CALCIUM 10 MG TAB PO SCH (22:04)
[2017-09-07] MEDS: TEMAZEPAM 15 MG CAP PO PRN (22:48)
[2017-09-08] MEDS: oxyCODONE IR 5 MG TAB PO PRN ×5 (03:12→21:54)
[2017-09-08] MEDS: LORazepam 1 MG TAB PO PRN ×5 (03:12→21:59)
--- NOTE | 2017-09-08 09:06 | HOSPPROG ---
Hospitalist Progress Note Assessment/Plan: #Leg hematoma: due to anticoagulation. Seen by Dr. Garnett; no surgery warranted -cont PT. H/H stable #Chest pain: Lexiscan showed apical thinning, no ischemia #Coronavirus URI: s/p doxy #Acute hypoxic resp failure: due to URI, atelectasis. Now resolved #Chronic pain and opioid dependence: will cont current doses. I explained that I will not increase these meds. #h/o A fib: NSR. BB, Xarelto. #h/o PE: Xarelto #Obesity: counseled on diet #DVT ppx: Xarelto #Disp: cont inpatient admission for PT, pulse ox Subjective: c/o pain all over. Coughing up more sputum Objective: Vital Signs Temp Pulse Resp BP Pulse Ox 36.7 C 99 16 148/82 H 93 09/08/17 08:00 09/08/17 08:00 09/08/17 08:00 09/08/17 08:00 09/08/17 08:00 Laboratory Results 09/04/17 03:55 09/06/17 04:56 09/07/17 09/08/17 09/09/17 05:59 05:59 05:59 Intake Total 1420 Output Total 4150 850 Balance -4150 570 PT 19.6 SEC (12.0-15.0) H 08/29/17 08:04 INR 1.65 (0.83-1.16) H 08/29/17 08:04 - Physical Exam Constitutional: no apparent distress Eyes: PERRL Ears, Nose, Mouth, Throat: moist mucous membranes, hearing normal Cardiovascular: regular rate and rhythym, no murmur, rub, or gallop Respiratory: reduced air movement Gastrointestinal: normoactive bowel sounds, soft, non-tender abdomen Genitourinary: No riley in urethra Musculoskeletal: other (left knee and thigh hematoma. Has some ROM. No significant TTP) Neurologic: AAOx3, CN II-XII Intact Psychiatric: interacting appropriately ICD10 Worksheet Patient Problems: Problems Problem Status Onset Chest pain Acute Chronic pain Acute
[2017-09-08] MEDS: RIVAROXABAN 20 MG TAB PO SCH (09:25)
[2017-09-08] MEDS: PREGABALIN 100 MG CAP PO SCH ×3 (09:25→21:52)
[2017-09-08] MEDS: ASPIRIN 81 MG CHEWABLE TAB PO SCH (09:26)
[2017-09-08] MEDS: guaiFENesin 600 MG TAB.ER PO SCH ×2 (09:26→21:53)
[2017-09-08] MEDS: ACETAMINOPHEN 500 MG TAB PO SCH ×3 (09:27→21:52)
[2017-09-08] MEDS: METOPROLOL TARTRATE 50 MG TAB PO SCH ×2 (09:27→21:53)
[2017-09-08] MEDS: SENNOSIDES/DOCUSATE SODIUM TAB PO SCH ×2 (09:28→21:51)
[2017-09-08] MEDS: LISINOPRIL 10 MG TAB PO SCH (09:58)
[2017-09-08] MEDS: PRAZOSIN HCL 1 MG CAP PO SCH (09:58)
[2017-09-08] MEDS: fentaNYL 100 MCG PATCH TD SCH (11:49)
[2017-09-08] MEDS ORDERED: BENZONATATE 100 MG CAP PO PRN (12:27)
[2017-09-08] MEDS ORDERED: ALBUTEROL 60 PUFFS/8 GM MDI IH PRN (12:27)
[2017-09-08] MEDS ORDERED: ALBUTEROL 200 PUFFS/18 GM MDI IH PRN (12:37)
[2017-09-08] MEDS: ATORVASTATIN CALCIUM 10 MG TAB PO SCH (21:53)
[2017-09-08] MEDS: TEMAZEPAM 15 MG CAP PO PRN (21:53)
[2017-09-08] MEDS: traZODone 50 MG TAB PO SCH (21:54)
[2017-09-09] MEDS: oxyCODONE IR 5 MG TAB PO PRN ×5 (02:04→20:04)
[2017-09-09] MEDS: LORazepam 1 MG TAB PO PRN ×5 (02:06→20:29)
[2017-09-09] MEDS: TEMAZEPAM 15 MG CAP PO PRN ×2 (02:06→20:29)
[2017-09-09] MEDS: guaiFENesin 600 MG TAB.ER PO SCH ×2 (08:18→20:05)
[2017-09-09] MEDS: ASPIRIN 81 MG CHEWABLE TAB PO SCH (08:18)
[2017-09-09] MEDS: METOPROLOL TARTRATE 50 MG TAB PO SCH ×2 (08:19→20:15)
[2017-09-09] MEDS: RIVAROXABAN 20 MG TAB PO SCH (08:19)
[2017-09-09] MEDS: PRAZOSIN HCL 1 MG CAP PO SCH (08:21)
[2017-09-09] MEDS: LISINOPRIL 10 MG TAB PO SCH (08:22)
[2017-09-09] MEDS: PREGABALIN 100 MG CAP PO SCH ×3 (08:23→22:01)
[2017-09-09] MEDS: SENNOSIDES/DOCUSATE SODIUM TAB PO SCH ×2 (08:26→20:05)
[2017-09-09] MEDS: ACETAMINOPHEN 500 MG TAB PO SCH ×3 (08:33→22:01)
--- NOTE | 2017-09-09 14:25 | HOSPPROG ---
Hospitalist Progress Note Assessment/Plan: New pt encounter #Leg hematoma: due to anticoagulation. Seen by Dr. Garnett; no surgery warranted -cont PT. H/H stable #Chest pain: Lexiscan showed apical thinning, no ischemia #Coronavirus URI: s/p doxy #Acute hypoxic resp failure: due to URI, atelectasis. Now resolved #Chronic pain and opioid dependence: -increasing Fentanyl -cont all other short acting meds #h/o A fib: NSR. BB, Xarelto. #h/o PE: Xarelto -This was diagnosed around 2 years ago. He was initially treated with coumadin and this was stopped after a few months of treatment. He had acute P.E. while off AC and was restarted on Xarelto about 1.5 years ago. He is considered to need lifelong AC. #Obesity: counseled on diet #DVT ppx: Xarelto #Disp: cont inpatient admission for PT, pulse ox Plan: -Cont Xarelto -Stop Aspirin -Increase Fentanyl for pain mgmt -Awaiting placement Subjective: reports generalized pain. LLE and Left knee pain, although improved daily. Waiting for placement. No CP or SOB Objective: Vital Signs Temp Pulse Resp BP Pulse Ox 36.8 C 95 18 138/83 H 100 09/09/17 08:00 09/09/17 08:00 09/09/17 08:00 09/09/17 08:00 09/09/17 08:00 Laboratory Results 09/04/17 03:55 09/08/17 09:57 09/08/17 09/09/17 09/10/17 05:59 05:59 05:59 Intake Total 1420 Output Total 850 400 Balance 570 -400 PT 19.6 SEC (12.0-15.0) H 08/29/17 08:04 INR 1.65 (0.83-1.16) H 08/29/17 08:04 - Physical Exam Constitutional: no apparent distress, appears nourished Eyes: PERRL, EOMI Ears, Nose, Mouth, Throat: moist mucous membranes, hearing normal Cardiovascular: regular rate and rhythym, No edema Respiratory: no respiratory distress, no rales or rhonchi, clear to auscultation Gastrointestinal: normoactive bowel sounds, soft, non-tender abdomen Skin: warm Neurologic: AAOx3 Psychiatric: interacting appropriately, not anxious, not encephalopathic Lymph, Heme, Immunologic: No petechiae ICD10 Worksheet Patient Problems: Problems Problem Status Onset Chest pain Acute Chronic pain Acute
[2017-09-09] MEDS ORDERED: fentaNYL 25 MCG PATCH TD ONE (14:30)
--- NOTE | 2017-09-09 16:21 | ASMTCMCOM ---
CM Note CM Note Notes: Tk at [facility] states Pt. is approved to be admitted. Sent LTC financial one pager application at Tk's request through [facility]. Namrata met w/ Pt. today in room. Discussed his acceptance at [facility]. Pt. pleased. Discussed a little bit about what to expect. Pt. grateful to get in. Chanel from [facility] approved Pt. and [facility] can take Pt., but Chanel cannot fax approval to [facility] until 17:30 today. Tk from [facility] states too late to admit. Will plan to d/c to [facility] tomorrow. Pt. good with plan to d/c tomorrow. Date Signed: 09/09/2017 04:21 PM Electronically Signed By:Julia Mendoza LCSW
[2017-09-09] MEDS: traZODone 50 MG TAB PO SCH (20:06)
[2017-09-09] MEDS: ATORVASTATIN CALCIUM 10 MG TAB PO SCH (20:06)
[2017-09-10] MEDS: TEMAZEPAM 15 MG CAP PO PRN (00:32)
[2017-09-10] MEDS: oxyCODONE IR 5 MG TAB PO PRN ×5 (00:32→15:58)
[2017-09-10] MEDS: LORazepam 1 MG TAB PO PRN ×5 (00:34→15:57)
[2017-09-10 07:59] VITALS: BP 145/75; PULSE 90; RESP 18; TEMP 99; O2SAT 99
[2017-09-10] MEDS: METOPROLOL TARTRATE 50 MG TAB PO SCH (09:05)
[2017-09-10] MEDS: LISINOPRIL 10 MG TAB PO SCH (09:05)
[2017-09-10] MEDS: RIVAROXABAN 20 MG TAB PO SCH (09:06)
[2017-09-10] MEDS: PRAZOSIN HCL 1 MG CAP PO SCH (09:06)
[2017-09-10] MEDS: PREGABALIN 100 MG CAP PO SCH ×2 (09:06→15:00)
[2017-09-10] MEDS: ACETAMINOPHEN 500 MG TAB PO SCH ×2 (09:07→15:00)
[2017-09-10] MEDS: guaiFENesin 600 MG TAB.ER PO SCH (09:08)
--- NOTE | 2017-09-10 09:33 | WOCRNPDOC ---
WOCRN Advanced Assessment Note - Skin Integrity Problem, Advanced Assess Right Ear Pressure Injury Dressing Type: Open to Air Exudate Amount: None Exudate Characteristic(s): None Cassandra Wound Tissue: Blanching, Intact Cassandra Wound Swelling: None Wound Bed Color: Red Site Measurement - Head-to-Toe Length X Width X Depth (cm): 0.3cmx0.1ool3sw Pressure Injury Stage: Stage 1, Acid Purifier Related Pressure Injury (O2 tubing) Skin Integrity Problem Comment: Small area of non-blanching erythema noted on the top of patient's R ear, appearance consistent w/ stage 1 pressure injury r/ t pressure from O2 tubing. Skin is currently intact, and periwound skin is intact and blanching. Nursing placed foam tubing protectors this morning, but patient removed them. Importance of using these tubing protectors to prevent injury was reiterated to patient. Nursing should continue to offer them, and monitor site q. shift. Upper Lip Pressure Injury Dressing Type: Open to Air Exudate Amount: None Exudate Characteristic(s): None Cassandra Wound Tissue: Intact Cassandra Wound Swelling: None Wound Bed Color: Brown Wound Bed Constitution: Scab Site Measurement - Head-to-Toe Length X Width X Depth (cm): 0.4cmx0.3cmx scab Skin Integrity Problem Comment: Intact scab noted in fold between upper lip and nose. Though this is documented as a pressure injury, appearance is not consistent w/ pressure r/t nasal cannula. In addition, patient has other scabs around his mouth which are similar in appearance. Nursing should continue to monitor along w/ routine skin assessments, but no specific intervention is needed at this time.
[2017-09-10] MEDS: SENNOSIDES/DOCUSATE SODIUM TAB PO SCH (11:13)
--- NOTE | 2017-09-10 13:51 | PDIAF ---
- Diagnosis Diagnosis: left knee hematoma Code Status: Do Not Resuscitate - Medication Management Discharge Medications: Medications to Continue on Transfer Atorvastatin Calcium [Lipitor 10 mg (*)] 10 mg PO HS 08/29/17 [Last Taken ] Cyanocobalamin [Vitamin B12 (*)] 1,000 mcg PO DAILY 08/29/17 [Last Taken Unknown ] Pregabalin [LYRICA] 200 mg PO TID 08/29/17 [Last Taken 08/29/17] Rivaroxaban [Xarelto] 20 mg PO DAILY 08/29/17 [Last Taken 08/29/17 0100] Lisinopril [Zestril 10 mg (*)] 10 mg PO DAILY #30 tab 09/10/17 [Last Taken Unknown] Metoprolol Tartrate [Lopressor 50 mg (*)] 50 mg PO BID #60 tab 09/10/17 [Last Taken Unknown] fentaNYL [Duragesic 100 MCG Patch (*)] 100 mcg TD Q72H #5 patch 09/10/17 [Last Taken Unknown] fentaNYL [Duragesic 25 MCG Patch (*)] 50 mcg TD Q3D #5 patch 09/10/17 [Last Taken Unknown] oxyCODONE IR [Oxycodone Ir (*)] 10 - 20 mg PO Q4HRS PRN #40 tab 09/10/17 [Last Taken Unknown] traZODone [traZODONE 50MG (*)] 50 mg PO HS #20 tab 09/10/17 [Last Taken Unknown] Discharge Medications: Refer to the Discharge Home Medication list for PRN reason. - Orders Services needed: Physical Therapy, Occupational Therapy Isolation Type: Droplet Isolation Diet Recommendation: no restrictions on diet Diet Texture: Regular Texture Diet - Follow Up Care Current Providers and Referrals: Patient,NotPresent [Unknown] - As per Instructions
[2017-09-10] MEDS ORDERED: fentaNYL 100 MCG PATCH TD SCH (14:00)
--- NOTE | 2017-09-10 14:11 | PDDCSUM ---
Discharge Summary Discharge Summary: 51 yo male, obese, with hx of PE on chronic AC admitted for CP. Had CV w/u including Lexiscan which were unremarkable Also had a large left leg/knee hematoma due to trauma to the left knee. He was evaluated by ortho who felt surgery was not needed. Xarelto was eventually continued as he has a hx of PE's while off AC. Given the large hematoma and unremarkable CV w/u, home aspirin was stopped. He is on AC and needs it life long if he does not have further bleed. He has a hx of chronic pain syndrome and his acute pain has been treated. Would be hesitant to increase pain meds further He is being sent to a SNF for further PT He still has a difficult time with ambulation but this is multifactorial to include severe OA which he says he will need a knee replacement per his orthopedic team DDX: #Leg hematoma: due to anticoagulation. Seen by Dr. Garnett; no surgery warranted -cont PT. H/H stable #Chest pain: Lexiscan showed apical thinning, no ischemia #Coronavirus URI: s/p doxy #Acute hypoxic resp failure: due to URI, atelectasis. Now resolved #Chronic pain and opioid dependence: -increasing Fentanyl -cont all other short acting meds #h/o A fib: NSR. BB, Xarelto. #h/o PE: Xarelto -This was diagnosed around 2 years ago. He was initially treated with coumadin and this was stopped after a few months of treatment. He had acute P.E. while off AC and was restarted on Xarelto about 1.5 years ago. He is considered to need lifelong AC. #Obesity: counseled on diet #DVT ppx: Xarelto #Disp: cont inpatient admission for PT, pulse ox Exam: NAD AAOX3 RRR CTA B S/NT/ND NO LE EDEMA MEDS: SEE MED REC TOTAL TIME SPENT ON D/C IS 40 MINS
[2017-09-10] MEDS ORDERED: fentaNYL 50 MCG PATCH TD SCH (15:00)
--- NOTE | 2017-09-10 15:15 | ASMTCMCOM ---
CM Note CM Note Notes: Today Pt. d/cing to [facility]. Pt. good with plan. SWer provided Pt. with information on how to get new wheelchair or refurbished wheelchair as well as Pain Clinic information. SWer arranged for [facility] wheelchair transport with Medicaid benefits . Later VE contracted with [facility] for wheelchair transport. rip states no wheelchair transport available. Mandir called [place] at [facility] who will pick Pt. up around 16:10. Gave GUALBERTO confirmation #: [id number] to [facility]. Sent hard fax to [place]'s 3E floor to Sidney's attention. Tk out for rest of day. Updated Sidney on transport delay. Plan: D/c today to [facility]. Date Signed: 09/10/2017 03:15 PM Electronically Signed By:Julia Mendoza LCSW
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
[2017-09-11] MEDS ORDERED: fentaNYL 25 MCG PATCH TD SCH ×2 (09:00)
[2017-09-11] MEDS ORDERED: fentaNYL 100 MCG PATCH TD SCH ×2 (09:00)
[2017-09-11] MEDS ORDERED: fentaNYL 50 MCG PATCH TD SCH (09:00)
[2017-09-13] MEDS ORDERED: fentaNYL 25 MCG PATCH TD SCH (08:00)
== END 2017-09-10 16:22 | DRG 313 ==
LOC: F2W 11:42 → OBSVTOIN 08-30 14:39 → F3N 09-04 19:32 → F3E 09-08 14:29
PROVIDERS: ADMIT Student in an Organized Health Care Education/Training Program; ATTEND Student in an Organized Health Care Education/Training Program
DX: R07.89 Other chest pain (principal); J96.01 Acute respiratory failure with hypoxia; F11.20 Opioid dependence, uncomplicated; S80.02XA Contusion of left knee, initial encounter; W22.8XXA Striking against or struck by other objects, initial encounter; I48.91 Unspecified atrial fibrillation; J06.9 Acute upper respiratory infection, unspecified; J20.8 Acute bronchitis due to other specified organisms; I10 Essential (primary) hypertension; E78.00 Pure hypercholesterolemia, unspecified; I25.2 Old myocardial infarction; G89.29 Other chronic pain; E66.9 Obesity, unspecified; I25.10 Atherosclerotic heart disease of native coronary artery without angina pectoris; M17.10 Unilateral primary osteoarthritis, unspecified knee; Z79.01 Long term (current) use of anticoagulants; Z86.711 Personal history of pulmonary embolism; Z59.0 Homelessness; Z66 Do not resuscitate
CPT/HCPCS: 96374; 97110-GP; 97116-GP; 97140-GP; 97161-GP; 97165-GO; 97530-GP; 97535-GO; A9500; G0378; J1170; J1956; J2785; Q9967

== ENCOUNTER 2018-06-04 22:43 | Inpatient (IN) | payer MEDICAID ==
[2018-06-04] MEDS ORDERED: NITROGLYCERIN 0.4 MG BTL SL ONE (22:50)
[2018-06-04] MEDS ORDERED: ASPIRIN EC 325 MG TAB PO ONE (22:50)
--- NOTE | 2018-06-04 22:50 | EDPHY ---
H & P Time Seen by Provider: 06/04/18 22:48 HPI/ROS: HPI CHIEF COMPLAINT: Chest pain HISTORY OF PRESENT ILLNESS: This is a very pleasant 52-year-old male, morbidly obese, resides at [facility], his a history of COPD on 8 L nasal cannula, history of ischemic heart disease however states he does not any stents, additionally history of PE on Xarelto. He states he has been compliant with his Xarelto. He presents to the emergency room with chest pressure stating something "heavy is sitting on his on his chest" states started earlier this evening. Also endorses some shortness of breath. No pleuritic pain. No hemoptysis. Of note is had a nose bleed recently. Denies fever, denies productive cough. Past Medical History: COPD, oxygen dependent, morbid obesity, volume overload, history of pulmonary embolisms, ischemic heart disease history of AFib on Xarelto, and sotalol, cardioversion in April, diastolic heart failure, acute kidney injury Past Surgical History: Denies recent surgery however multiple orthopedic surgeries. Social History: Denies daily use of drugs alcohol tobacco. Resides at [facility] Family History: Noncontributory ROS REVIEW OF SYSTEMS: 10 Systems were reviewed and negative with the exception of the elements mentioned in the history of present illness. Exam Constitutional morbidly obese nontoxic, triage nursing summary reviewed, vital signs reviewed, awake/alert. Eyes normal conjunctivae and sclera, EOMI, PERRLA. HENT normal inspection, atraumatic, moist mucus membranes, no epistaxis, neck supple/ no meningismus, no raccoon eyes. Respiratory clear to auscultation bilaterally, normal breath sounds, no respiratory distress, no wheezing. Cardiovascular rate normal, regular rhythm, no murmur, no edema, distal pulses normal. Gastrointestinal soft, non-tender, no rebound, no guarding, normal bowel sounds, no distension, no pulsatile mass. Genitourinary no CVA tenderness. Musculoskeletal no midline vertebral tenderness, full range of motion, no calf swelling, no tenderness of extremities, no meningismus, good pulses, neurovascularly intact. Skin pink, warm, & dry, no rash, skin atraumatic. Neurologic awake, alert and oriented x 3, AAOx3, moves all 4 extremities equally, motor intact, sensory intact, CN II-XII intact, normal cerebellar, normal vision, normal speech. Psychiatric normal mood/affect. Heme/Lymph/Immune no lymphadenopathy. Differential diagnosis includes but is not limited to: ACS, atypical chest pain , pneumothorax, pneumonia, pulmonary embolism, aortic dissection, congestive heart failure, tumor, musculoskeletal pain, esophageal pain, GERD, peptic ulcer disease, pancreatitis Medical Decision Making: Plan for this patient IV establishment full monitoring specialist, full-dose aspirin, nitroglycerin for chest pain, check troponin, check EKG, Re-evaluation: EKG interpretation by me on record in [facility] system. Impression time of EKG 2255, sinus rhythm rate of 74 no acute ischemia no ST elevation no ST depression no T-wave abnormalities. HEART Score for Major Cardiac Events from [email or web address] on 06/05/2018 All calculations should be rechecked by clinician prior to use RESULT SUMMARY: 5 points Moderate Score (4-6 points) Risk of MACE of 12-16.6%. INPUTS: History > 1 = Moderately suspicious EKG > 1 = Non-specific repolarization disturbance Age > 1 = 45-64 Risk factors > 2 = 3 risk factors or history of atherosclerotic disease Initial troponin > 0 = normal limit Spoke with Hospalist service Dr. Escamilla, Agrees to admit. [id number]: Patient chest pain free at this time. Source: Patient, EMS - Medical/Surgical History Hx Asthma: No Hx Chronic Respiratory Disease: Yes Hx Diabetes: No Hx Cardiac Disease: Yes Hx Renal Disease: No Hx Cirrhosis: No Hx Alcoholism: No Hx HIV/AIDS: No Hx Splenectomy or Spleen Trauma: No Other PMH: ortho surgeries including hip surgery , bilateral ankle fractures and "broken back", a fib, htn, cad, "chronic resp failure". IN 5 years ago. PE 3 years ago. Chronic pain - Social History Smoking Status: Never smoked Constitutional: Initial Vital Signs O2 Sat (%) 100 06/04/18 22:48 O2 Delivery Mode Nasal Cannula,Hi-Flow Nasal Cannula,Humidified O2 (L/minute) 8 Allergies/Adverse Reactions: No Known Allergies Allergy (Unverified 08/29/17 07:59) Home Medications: Medication Instructions Recorded Atorvastatin Calcium [Lipitor 10 10 mg PO HS 08/29/17 mg (*)] Cyanocobalamin [Vitamin B12 (*)] 1,000 mcg PO DAILY 08/29/17 Pregabalin [LYRICA] 200 mg PO BID 08/29/17 Rivaroxaban [Xarelto] 20 mg PO DAILY 08/29/17 Lisinopril [Zestril 10 mg (*)] 10 mg PO DAILY #30 tab 09/10/17 traZODone [traZODONE 50MG (*)] 50 mg PO HS #20 tab 09/10/17 Magnesium Citrate [Magnesium 10 oz PO DAILY PRN 03/31/18 Citrate 300 ml (*)] Melatonin [Melatonin 3 MG (*)] 3 mg PO HS 03/31/18 Sennosides/Docusate Sodium 1 each PO BID 03/31/18 [Senna-S Tablet] oxyCODONE IR [Oxycodone Ir (*)] 30 mg PO Q6 PRN 03/31/18 Furosemide [Lasix 40 MG (*)] 120 mg PO BID@0900,1500 tab 04/12/18 Sotalol HCl [Betapace 80 MG (*)] 120 mg PO BID tab 04/12/18 Acetaminophen [Tylenol 325mg (*)] 650 mg PO Q6 PRN 06/05/18 Medical Decision Making - Data Points Laboratory Results: Laboratory Results 06/05/18 03:20 06/05/18 03:20 06/05/18 09:51 Troponin I < 0.012 ng/mL ng/mL (0.000-0.034) Medications Given: Acetaminophen (Tylenol) 650 mg PO Q4HRS PRN PRN Reason: Pain, Mild/Fever, Can Take PO Stop: 12/02/18 00:21 Last Admin: 06/05/18 08:11 Dose: 650 mg Atorvastatin Calcium (Lipitor) 10 mg PO HS [facility] Stop: 12/02/18 20:59 Last Admin: 06/05/18 21:34 Dose: 10 mg Furosemide (Lasix) 120 mg PO BID@0900,1500 [facility] Stop: 12/02/18 14:59 Last Admin: 06/05/18 18:50 Dose: Not Given Melatonin (Melatonin) 3 mg PO HS [facility] Stop: 12/02/18 20:59 Last Admin: 06/05/18 21:34 Dose: 3 mg Ondansetron HCl (Zofran Odt) 4 mg PO Q4HRS PRN PRN Reason: Nausea/Vomiting, Use 1st Stop: 12/02/18 00:21 Last Admin: 06/05/18 11:58 Dose: 4 mg Oxycodone HCl (Oxycodone Ir) 30 mg PO Q6 PRN PRN Reason: Pain, Breakthrough Stop: 06/15/18 14:59 Last Admin: 06/05/18 21:35 Dose: 30 mg Pregabalin (Lyrica) 200 mg PO BID [facility] Stop: 12/02/18 08:59 Last Admin: 06/05/18 21:34 Dose: 200 mg Rivaroxaban (Xarelto) 20 mg PO DAILY [facility] Stop: 12/02/18 08:59 Last Admin: 06/05/18 12:07 Dose: 20 mg Senna/Docusate Sodium (Senokot-S) 1 tab PO BID [facility] Stop: 12/02/18 08:59 Last Admin: 06/05/18 21:34 Dose: 1 tab Sotalol HCl (Betapace) 120 mg PO BID [facility] Stop: 12/02/18 08:59 Last Admin: 06/05/18 21:33 Dose: 120 mg Trazodone HCl (Trazodone) 50 mg PO HS [facility] Stop: 12/02/18 20:59 Last Admin: 06/05/18 21:35 Dose: 50 mg Vitamin B Complex (Vitamin B12) 1,000 mcg PO DAILY [facility] Stop: 12/02/18 08:59 Last Admin: 06/05/18 12:06 Dose: 1,000 mcg Discontinued Medications Aspirin Buffered (Aspirin Ec) 325 mg PO EDNOW ONE Stop: 06/04/18 22:51 Last Admin: 06/04/18 23:03 Dose: 325 mg Sodium Chloride (Ns) 500 mls @ 0 mls/hr IV ONCE ONE PRN Reason: Wide Open Stop: 06/05/18 03:09 Last Admin: 06/05/18 04:06 Dose: 500 mls Nitroglycerin (Nitrostat) 0.4 mg SL EDNOW ONE Stop: 06/04/18 22:51 Last Admin: 06/04/18 22:50 Dose: Not Given Oxycodone HCl (Oxycodone Ir) 10 mg PO Q6H PRN PRN Reason: Pain, Severe Able to Take PO Stop: 06/15/18 01:47 Last Admin: 06/05/18 08:11 Dose: 10 mg Oxycodone HCl (Oxycodone Ir) 20 mg PO ONCE ONE Stop: 06/05/18 12:16 Last Admin: 06/05/18 15:28 Dose: Not Given Point of Care Test Results: Chemistry 06/04/18 23:09 POC Troponin I 0.01 ng/mL ng/mL (0.00-0.08) Departure - Departure Disposition: [facility] Inpatient Acute Clinical Impression: Chest pain Qualifiers: Chest pain type: unspecified Qualified Code(s): R07.9 - Chest pain, unspecified
[2018-06-04 23:17] LABS: PLATELET COUNT 240 10^3/uL (150-400)
[2018-06-04 23:44] LABS: INR 1.22 (0.83-1.16); PROTIME(PATIENT) 15.6 SEC (12.0-15.0)
[2018-06-05] MEDS ORDERED: ONDANSETRON DISINTEGRATING 4 MG TAB PO PRN (00:22)
[2018-06-05] MEDS ORDERED: ONDANSETRON 4 MG/2 ML VIAL IVP PRN (00:22)
[2018-06-05] MEDS ORDERED: NITROGLYCERIN 0.4 MG BTL SL PRN (00:24)
[2018-06-05] MEDS: ACETAMINOPHEN 325 MG TAB PO PRN ×3 (01:58→22:45)
[2018-06-05] MEDS: oxyCODONE IR 5 MG TAB PO PRN ×2 (01:58→08:11)
[2018-06-05] MEDS ORDERED: HYDROmorphONE/DILAUDID 4 MG TAB PO PRN (02:15)
--- NOTE | 2018-06-05 02:54 | PDGENHP ---
History and Physical - Chief Complaint Chest pain - History of Present Illness 52 yo M w/ hx of AF, dCHF, CAD per CT imaging, chronic pain, COPD, and CHRF presents with chest pain. The patient tells me he has had severe chest pain across his entire chest for over 24 hours. The pain has not varied with rest or exertion. He describes it as if someone is sitting on his chest. He also has noted shortness of breath but denies dizziness, diaphoresis, or radiation of pain. He had a nuclear stress test in August of 2017 that did not show evidence of ischemia. Initial ECG and troponin in ED reassuring. Of note, the patient has a history of chronic pain. His opiates were recently tapered at his living facility ([facility]). He tells me he has pain all over and is being quite aggressive about receiving opiate pain medications while here. He has been verbally abusive towards nursing staff and myself in regards to this issue. Case discussed with ED physician Dr. Everett; records reviewed in EMR. History Information - Allergies/Home Medication List Allergies/Adverse Reactions: No Known Allergies Allergy (Unverified 08/29/17 07:59) Home Medications: Atorvastatin Calcium [Lipitor 10 mg (*)] 10 mg PO HS 08/29/17 [Last Taken ] Cyanocobalamin [Vitamin B12 (*)] 1,000 mcg PO DAILY 08/29/17 [Last Taken ] Pregabalin [LYRICA] 200 mg PO TID 08/29/17 [Last Taken 03/31/18 08:00] Rivaroxaban [Xarelto] 20 mg PO DAILY 08/29/17 [Last Taken 03/31/18] Magnesium Citrate [Magnesium Citrate 300 ml (*)] 10 oz PO DAILY PRN 03/31/18 [ Last Taken Unknown] Melatonin [Melatonin 3 MG (*)] 3 mg PO HS 03/31/18 [Last Taken 03/30/18] Polyethylene Glycol 3350 [Miralax 17 gm (*)] 17 gm PO BID 03/31/18 [Last Taken 03/31/18 08:00] Sennosides/Docusate Sodium [Senna-S Tablet] 1 each PO BID 03/31/18 [Last Taken 03/31/18 08:00] oxyCODONE IR [Oxycodone Ir (*)] 30 mg PO Q4 PRN 03/31/18 [Last Taken Unknown] I have personally reviewed and updated: family history, medical history - Past Medical History atrial fibrillation, coronary artery disease (by MSCT), hypertension, hyperlipidemia, pulmonary embolism Additional medical history: obesity - Surgical History Additional surgical history: extensive ortho history - Family History Positive for: diabetes type II, mother with history of CAD younger than 65 - Social History Smoking Status: Never smoked Additional social history: 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 Has lived in [place] since August,. Currently living in a jail. Review of Systems Review of Systems: ROS: 10pt was reviewed & negative except for what was stated in HPI & below Physical Exam Physical Exam: Temp Pulse Resp BP Pulse Ox 37.0 C 70 14 113/67 100 06/05/18 02:29 06/05/18 02:29 06/05/18 02:29 06/05/18 02:06/05/18 02:29 O2 (L/minute) 8 Constitutional: obese, uncomfortable Eyes: PERRL, EOMI Ears, Nose, Mouth, Throat: moist mucous membranes, no oral mucosal ulcers Cardiovascular: regular rate and rhythym, no murmur, rub, or gallop Respiratory: no respiratory distress, reduced air movement Gastrointestinal: normoactive bowel sounds, soft, non-tender abdomen Skin: warm, normal color Musculoskeletal: full muscle strength, no muscle tenderness Neurologic: AAOx3, CN II-XII Intact Psychiatric: interacting appropriately, agitated Lab Data & Imaging Review 06/04/18 23:05 06/04/18 23:05 WBC 10.68 10^3/uL (3.80-9.50) H 06/04/18 23:05 RBC 3.47 10^6/uL (4.40-6.38) L 06/04/18 23:05 Hgb 10.0 g/dL (13.7-17.5) L 06/04/18 23:05 Hct 31.1 % (40.0-51.0) L 06/04/18 23:05 MCV 89.6 fL (81.5-99.8) 06/04/18 23:05 MCH 28.8 pg (27.9-34.1) 06/04/18 23:05 MCHC 32.2 g/dL (32.4-36.7) L 06/04/18 23:05 RDW 17.2 % (11.5-15.2) H 06/04/18 23:05 Plt Count 240 10^3/uL (150-400) 06/04/18 23:05 MPV 10.6 fL (8.7-11.7) 06/04/18 23:05 Neut % (Auto) 77.3 % (39.3-74.2) H 06/04/18 23:05 Lymph % (Auto) 14.3 % (15.0-45.0) L 06/04/18 23:05 [place] % (Auto) 6.8 % (4.5-13.0) 06/04/18 23:05 Eos % (Auto) 0.7 % (0.6-7.6) 06/04/18 23:05 Baso % (Auto) 0.3 % (0.3-1.7) 06/04/18 23:05 Nucleat RBC Rel Count 0.0 % (0.0-0.2) 06/04/18 23:05 Absolute Neuts (auto) 8.26 10^3/uL (1.70-6.50) H 06/04/18 23:05 Absolute Lymphs (auto) 1.53 10^3/uL (1.00-3.00) 06/04/18 23:05 Absolute Monos (auto) 0.73 10^3/uL (0.30-0.80) 06/04/18 23:05 Absolute Eos (auto) 0.07 10^3/uL (0.03-0.40) 06/04/18 23:05 Absolute Basos (auto) 0.03 10^3/uL (0.02-0.10) 06/04/18 23:05 Absolute Nucleated RBC 0.00 10^3/uL (0-0.01) 06/04/18 23:05 Immature Gran % 0.6 % (0.0-1.1) 06/04/18 23:05 Immature Gran # 0.06 10^3/uL (0.00-0.10) 06/04/18 23:05 PT 15.6 SEC (12.0-15.0) H 06/04/18 23:05 INR 1.22 (0.83-1.16) H 06/04/18 23:05 APTT 27.7 SEC (23.0-38.0) 06/04/18 23:05 Sodium 142 mEq/L (135-145) 06/04/18 23:05 Potassium 4.8 mEq/L (3.3-5.0) 06/04/18 23:05 Chloride 99 mEq/L (97-110) 06/04/18 23:05 Carbon Dioxide 33 mEq/l (22-31) H 06/04/18 23:05 Anion Gap 10 mEq/L (8-16) 06/04/18 23:05 BUN 69 mg/dL (7-23) H 06/04/18 23:05 Creatinine 1.9 mg/dL (0.7-1.3) H 06/04/18 23:05 Estimated GFR 37 06/04/18 23:05 Glucose 87 mg/dL (70-100) 06/04/18 23:05 Calcium 9.3 mg/dL (8.5-10.4) 06/04/18 23:05 Magnesium 2.0 mg/dL (1.6-2.3) 06/04/18 23:05 Total Bilirubin 0.3 mg/dL (0.1-1.4) 06/04/18 23:05 Conjugated Bilirubin 0.1 mg/dL (0.0-0.5) 06/04/18 23:05 Unconjugated Bilirubin 0.2 mg/dL (0.0-1.1) 06/04/18 23:05 AST 14 IU/L (17-59) L 06/04/18 23:05 ALT 30 IU/L (21-72) 06/04/18 23:05 Alkaline Phosphatase 100 IU/L (38-126) 06/04/18 23:05 POC Troponin I 0.01 ng/mL (0.00-0.08) 06/04/18 23:09 NT-Pro-B Natriuret Pep 197 pg/mL (0-125) H 06/04/18 23:05 Total Protein 6.2 g/dL (6.3-8.2) L 06/04/18 23:05 Albumin 4.0 g/dL (3.5-5.0) 06/04/18 23:05 Imaging Review: Imaging Impressions Chest X-Ray 06/04/18 22:48 Impression: Marked cardiac enlargement, otherwise negative. Visualized and Interpreted EKG results: Yes EKG Interpretation: Positive for: normal sinsus rhythm Assessment & Plan Assessment: 52 yo M w/ hx of AF, dCHF, CAD per CT imaging, chronic pain, COPD, and CHRF presents with chest pain. Plan: 1. Chest pain - Patient describes severe chest pressure for 24 hours; admission ECG (personally interpreted) without signs of ischemia and troponin negative. Last nuclear stress study in August of 2017 without signs of ischemia. No signs of CHF exacerbation or arrhythmia currently. HEART score of 4 indicative of need for further observation. The situation is complicated by chronic pain and drug seeking behavior. - Admit to PCU for observation - Monitor on telemetry, trend cardiac enzymes - Despite concern for drug seeking behavior, it is difficult to ignore severe symptoms and significant risk factors for coronary disease. As a result, I will order Lexiscan stress w/ NM per chest pain protocol noting patient cannot exercise to target 2. FINESSE - Serum Cr 1.9 on admission increased from normal baseline. This is possibly due to furosemide 120 mg BID he takes daily. - Hold furosemide - Trial small fluid bolus, trend BMP - Obtain UA, FeNa, FeUrea - Renally dose medications, avoid nephrotoxic agents 3. Chronic pain - He was recently tapered off of his opiates by his living facility, [facility]. Today he is displaying drug seeking behavior and being quite abusive with nursing staff and myself. I believe at least part of his symptoms are due to withdrawal from his previous high dose of opiates. - Will provide oxycodone 10 mg q6h PRN while here; I explained to the patient he will not be prescribed ongoing opiates by the hospital medicine group at discharge 4. AF - In NSR on admission; on sotalol and Xarelto as an outpatient. - Continue home medications pending reconciliation 5. dCHF - Recently admitted for decompensation. BNP only 197 today and CXR without signs of volume overload. - Hold Lasix noting FINESSE, restart as able 6. CHRF - Multifactorial from COPD and ANKUSH/OHS; he uses 6-8 L/min at baseline and is currently stable on the same. - Continue O2 as needed Diet - Regular, caffeine free Code - Full Ppx - Xarelto Dispo - Admit under observation status
[2018-06-05] MEDS ORDERED: NS 500 ML IV ONE (03:08)
[2018-06-05 04:20] LABS: PLATELET COUNT 232 10^3/uL (150-400)
[2018-06-05] MEDS ORDERED: oxyCODONE IR 5 MG TAB PO ONE ×2 (09:09→12:15)
[2018-06-05] MEDS ORDERED: REGADENOSON 0.4 MG/5 ML SYR IVP ONE ×2 (11:26→11:54)
[2018-06-05] MEDS: PREGABALIN 100 MG CAP PO SCH ×2 (12:05→21:34)
[2018-06-05] MEDS: CYANO/VITAMIN B12 1000 MCG TAB PO SCH (12:06)
[2018-06-05] MEDS: SOTALOL HCL 80 MG TAB PO SCH ×2 (12:06→21:33)
--- NOTE | 2018-06-05 12:06 | ASMTCMCOM ---
CM Note CM Note Notes: Reviewed pt in rounds, he lives at [facility] and was admitted for chest pain. He has been requesting pain medication and has been unpleasant at times with staff. Pt will get a stress test today if everything ok, he can return to [facility], CM w/f. DC Plan: [facility] Date Signed: 06/05/2018 12:05 PM Electronically Signed By:Kathi Campoverde RN
[2018-06-05] MEDS: RIVAROXABAN 20 MG TAB PO SCH (12:07)
--- NOTE | 2018-06-05 12:08 | PDCARST ---
CAR Stress Test Results Type of Stress Test: Lara MPI Indication: Chest pains Description of Procedure: After consent was obtained, the patient's right anticubital IV was interrogated to ensure good, unimpaired flow (with normal saline). No issues were noted. Vitals (oxygen, blood pressure, heart rate, and live ECG) were monitored. Mild, expected, drop in blood pressure was noted. No changes to ECG or oxygen saturation were noted. When injection was started, patient had moderate pain at the IV site, and procedure was briefly halted to reassess the patency of the IV. Normal saline was once again injected without difficulty, and procedure progressed. Impression: Unremarkable ECG with injection of Lara Conclusion: Nuclear images are pending
--- NOTE | 2018-06-05 14:12 | HOSPPROG ---
Hospitalist Progress Note Assessment/Plan: 52-year-old man with a history of AFib, diastolic heart failure and coronary artery disease per CT imaging comes in with chest pain. He does have a history of chronic pain with chronic narcotic dependency. At the group home where he lives they have been working on decreasing the dose of his narcotics which has been an issue for him and his pain control. # chest pain with negative troponins. The patient has had chest pain for over 24 hr no variation with rest or exertion. EKG is unchanged and troponin was negative. I discussed his case with Cardiology who did the nuclear stress test. Initial images showed a small area of perfusion defect and he will get a rest test in the a.m.. * Follow-up nuclear imaging tomorrow if negative he can be discharged home * If positive will discuss with Cardiology regarding medical management verses angiogram * Continue current medications for now including his chronic pain medications with no escalation of doses. * With negative troponins it is reassuring that his current chest pain is likely not related to acute coronary syndrome * Patient needs additional midnight stay for further evaluation of his chest pain given his multiple risk factors and abnormal test # chronic pain with chronic narcotic dependency. I did review with Marlen Santiago and the pharmacy who confirmed that he is currently on 30 mg every 6 hr of oxycodone. They have been tapering him off his fentanyl patch. Continue same dose # diastolic heart failure with massive fluid overload at baseline. He has some mild renal insufficiency likely from diuresis * Resume Lasix at slightly lower dose in the morning and continue daily weights * Current weight is stable from his discharge weight several months ago # history of AFib status post cardioversion he is currently in sinus rhythm # COPD continue pulmonary medications # dyslipidemia # hypertension # history of PE on anticoagulation Subjective: Patient new and chart reviewed. Continues to complain of central chest pain. Quite angry at the decreased dose of his Oxy IR at realizes he is being"a pill"I did increase his oxycodone dose to his home dose and will not give any further increases in medications at this time. Objective: Vital Signs Temp Pulse Resp BP Pulse Ox 37.1 C 69 14 117/55 L 99 06/05/18 12:00 06/05/18 12:00 06/05/18 12:00 06/05/18 12:00 06/05/18 12:00 Laboratory Results 06/05/18 03:20 06/05/18 03:20 06/04/18 06/05/18 06/06/18 05:59 05:59 05:59 Intake Total 1100 440 Balance 1100 440 PT 15.6 SEC (12.0-15.0) H 06/04/18 23:05 INR 1.22 (0.83-1.16) H 06/04/18 23:05 - Physical Exam Constitutional: obese, uncomfortable Eyes: PERRL, anicteric sclera Ears, Nose, Mouth, Throat: moist mucous membranes Cardiovascular: regular rate and rhythym, edema Respiratory: no respiratory distress, clear to auscultation Gastrointestinal: normoactive bowel sounds, soft, non-tender abdomen Genitourinary: no bladder fullness Skin: normal color Neurologic: AAOx3 Psychiatric: interacting appropriately, anxious ICD10 Worksheet Patient Problems: Problems Problem Status Onset Chest pain Acute Chronic pain Acute Atrial fibrillation Acute
[2018-06-05] MEDS: SENNOSIDES/DOCUSATE SODIUM TAB PO SCH ×2 (15:33→21:34)
--- NOTE | 2018-06-05 15:44 | PDMN ---
Medical Necessity Medical necessity: Change to IP, as of 06/05/18, per MD & MCG M-89; los >2 mn for ongoing management of chest pain >24 hrs w/no variation w/rest or exertion; requiring further workup/cardiac monitoring & med management; hx AFIB, diastolic heart failure, CAD, COPD, PE on AC & chronic pain w/narcotic dependency
[2018-06-05] MEDS: FUROSEMIDE 40 MG TAB PO SCH (18:50)
[2018-06-05] MEDS: ATORVASTATIN CALCIUM 10 MG TAB PO SCH (21:34)
[2018-06-05] MEDS: MELATONIN 3 MG TAB PO SCH (21:34)
[2018-06-05] MEDS: traZODone 50 MG TAB PO SCH (21:35)
[2018-06-06] MEDS: FUROSEMIDE 40 MG TAB PO SCH ×3 (07:22→15:48)
[2018-06-06] MEDS: SENNOSIDES/DOCUSATE SODIUM TAB PO SCH ×3 (07:27→20:24)
[2018-06-06] MEDS: ACETAMINOPHEN 325 MG TAB PO PRN ×3 (08:00→20:04)
[2018-06-06] MEDS: CYANO/VITAMIN B12 1000 MCG TAB PO SCH (08:01)
[2018-06-06] MEDS: PREGABALIN 100 MG CAP PO SCH ×2 (08:01→20:24)
[2018-06-06] MEDS: RIVAROXABAN 20 MG TAB PO SCH (08:01)
[2018-06-06] MEDS: SOTALOL HCL 80 MG TAB PO SCH ×2 (08:01→20:25)
[2018-06-06] MEDS ORDERED: HYDROmorphONE/DILAUDID 1 MG/ML INJ IVP ONE (13:58)
[2018-06-06] MEDS ORDERED: DIAZEPAM 5 MG/ML 1 ML SYR IVP ONE (13:58)
--- NOTE | 2018-06-06 14:01 | HOSPPROG ---
Hospitalist Progress Note Assessment/Plan: 52-year-old man with a history of AFib, diastolic heart failure and coronary artery disease per CT imaging comes in with chest pain. He does have a history of chronic pain with chronic narcotic dependency. At the [facility] where [facility] they have been working on decreasing the dose of his narcotics which has been an issue for him and his pain control. # chest pain with negative troponins. The patient has had chest pain for over 24 hr no variation with rest or exertion. EKG is unchanged and troponin was negative. I discussed his case with Cardiology who did the nuclear stress test. Initial images showed a small area of perfusion defect and he will get a rest test in the a.m.. * Nuclear imaging is positive for anterior wall ischemia, will ask cardiology to see him # chronic pain with chronic narcotic dependency. I did review with Marlen Santiago and the pharmacy who confirmed that he is currently on 30 mg every 6 hr of oxycodone. They have been tapering him off his fentanyl patch. Continue same dose # diastolic heart failure with massive fluid overload at baseline. He has some mild renal insufficiency likely from diuresis * Resume Lasix at slightly lower dose in the morning and continue daily weights * Current weight is stable from his discharge weight several months ago # history of AFib status post cardioversion he is currently in sinus rhythm # COPD continue pulmonary medications # dyslipidemia # hypertension # history of PE on anticoagulation Subjective: pain 10/10 chronic pain. No change in pain meds. Looks comfortable Objective: Vital Signs Temp Pulse Resp BP Pulse Ox 37.2 C 71 16 132/46 H 95 06/06/18 10:55 06/06/18 10:55 06/06/18 10:55 06/06/18 10:55 06/06/18 10:55 06/05/18 06/06/18 06/07/18 05:59 05:59 05:59 Intake Total 1500 Balance 1500 PT 15.6 SEC (12.0-15.0) H 06/04/18 23:05 INR 1.22 (0.83-1.16) H 06/04/18 23:05 - Physical Exam Constitutional: no apparent distress, obese Eyes: PERRL Cardiovascular: regular rate and rhythym, edema Respiratory: no respiratory distress ICD10 Worksheet Patient Problems: Problems Problem Status Onset Chest pain Acute Chronic pain Acute Atrial fibrillation Acute
--- NOTE | 2018-06-06 15:22 | CPEKG ---
Test Reason : OPEN Blood Pressure : / mmHG Vent. Rate : 074 BPM Atrial Rate : 074 BPM P-R Int : 163 ms QRS Dur : 096 ms QT Int : 426 ms P-R-T Axes : 018 -06 022 degrees QTc Int : 473 ms Sinus rhythm Low voltage, precordial leads Abnormal R-wave progression, early transition Confirmed by Fernanda Hannah ([id number]) on 06/06/2018 3:21:57 PM Referred By: Confirmed By:Fernanda Hannah
[2018-06-06] MEDS ORDERED: NS 250 ML IV ONE (17:00)
[2018-06-06] MEDS ORDERED: HEPARIN/DEXTROSE 500 ML IV SCH (17:04)
[2018-06-06] MEDS ORDERED: HEPARIN 10,000 UNIT/10 ML MDV (1,000 UNIT/ML) IVP PRN (17:04)
[2018-06-06] MEDS: traZODone 50 MG TAB PO SCH (20:25)
[2018-06-06] MEDS: ATORVASTATIN CALCIUM 10 MG TAB PO SCH (20:25)
[2018-06-06] MEDS: MAGNESIUM CITRATE 300 ML BOTTLE PO PRN (20:26)
[2018-06-06] MEDS: MELATONIN 3 MG TAB PO SCH (20:31)
[2018-06-07] MEDS: SOTALOL HCL 80 MG TAB PO SCH ×2 (08:23→20:42)
[2018-06-07] MEDS: FUROSEMIDE 40 MG TAB PO SCH ×2 (08:24→16:06)
[2018-06-07] MEDS: PREGABALIN 100 MG CAP PO SCH ×2 (08:24→20:41)
[2018-06-07] MEDS: ACETAMINOPHEN 325 MG TAB PO PRN ×2 (08:24→13:15)
[2018-06-07] MEDS: SENNOSIDES/DOCUSATE SODIUM TAB PO SCH ×2 (08:25→20:41)
[2018-06-07] MEDS: CYANO/VITAMIN B12 1000 MCG TAB PO SCH (08:25)
--- NOTE | 2018-06-07 08:53 | GCON ---
DATE OF CONSULTATION: 06/07/2018 REFERRING PHYSICIAN: Sandra Frey MD CHIEF COMPLAINT: We have been asked by Dr. Frey to evaluate the patient with a chief complaint of ch est pain. HISTORY OF PRESENT ILLNESS: The patient is a 52-year-old gentleman with a history of coronary artery disease by coronary artery calcifications who presented with a chief complaint of chest pain. Patie nt ruled out for myocardial infarction by cardiac enzymes. His EKG demonstrated no acute ST or T-wav e changes. Subsequent nuclear stress test for risk stratification was notable for inferolateral isch emia. We have been consulted to help in the further management of this patient. Patient states that he has chest pain in the center of his chest. The chest pain is described as a pressure sensation w ithout radiation. It is associated with shortness of breath, but not nausea, vomiting, or diaphoresi s. Patient denies previous episodes of chest pain like this. PAST MEDICAL HISTORY: 1. Coronary artery disease by coronary artery calcifications. 2. Hypertension. 3. Hyperlipidemia. 4. Pulmonary embolism. 5. Atrial fibrillation. 6. Diastolic heart failure. MEDICATIONS: Please see medicine reconciliation form. ALLERGIES: No known drug allergies. SOCIAL HISTORY: Patient does not smoke. He denies problems with alcohol. FAMILY HISTORY: Notable for diabetes and coronary artery disease. REVIEW OF SYSTEMS: 10-point is notable for chronic pain, secondary to extensive orthopedic injuries, as well as what is noted in HPI. PHYSICAL EXAMINATION: GENERAL: The patient is sitting in a chair. He does not appear to be in acut e distress. VITAL SIGNS: Temperature is afebrile. Pulse is 79, blood pressure 121/66, respiratory rate is 12, SaO2 is 99% on nasal cannula. HEENT: Normocephalic atraumatic. Extraocular muscles int act. NECK: No JVD. No bruits. LUNGS: Clear to auscultation bilaterally. CARDIOVASCULAR: Regula r rate and rhythm. S1, S2. No murmurs, rubs, or gallops appreciated. ABDOMEN: Obese, nontender. No hepatosplenomegaly noted. Cannot adequately palpate aorta. SKIN: Some pretibial stasis changes. EXTREMITIES: Mild bilateral lower extremity edema. NEURO: Patient is awake, alert, and oriented x3. LABORATORY DATA: White blood cell count is 9.87, hemoglobin is 9.2, hematocrit is 29.5, platelet cou nt is 232. Sodium 136, potassium 4.3, chloride 92, BUN 35, creatinine 1.3. Troponin within normal l imits x3. ASSESSMENT/PLAN: The patient is a 52-year-old gentleman with: 1. Chest pain. Patient presents with symptoms of chest pain concerning for an anginal equivalent. His EKG demonstrates no acute ST or T-wave changes. His biomarkers are within normal limits. Subseq uent stress testing for risk stratification was notable for inferolateral ischemia. Reviewed risks a nd benefits of cardiac catheterization to further evaluate his condition. We will arrange to have th is performed. Prior to performing catheterization, I would like to see patient's creatinine decrease d to baseline, in addition would like to transition Xarelto to heparin to mitigate bleeding risk. 2. Hypertension. Blood pressure was well controlled. Will continue current therapy. 3. Hyperlipidemia. Will obtain FLP and LFTs for risk stratification. /[id number]/MODL
[2018-06-07] MEDS ORDERED: HEPARIN 10,000 UNIT/10 ML MDV (1,000 UNIT/ML) IVP PRN (09:00)
[2018-06-07 09:25] LABS: PLATELET COUNT 218 10^3/uL (150-400)
[2018-06-07 09:26] LABS: INR 1.11 (0.83-1.16); PROTIME(PATIENT) 14.5 SEC (12.0-15.0)
[2018-06-07] MEDS: HEPARIN/DEXTROSE 500 ML IV SCH (09:44)
--- NOTE | 2018-06-07 12:27 | ASMTCMCOM ---
CM Note CM Note Notes: 06/07/2018 Case Management Note Discussed pt during rounds this morning. Pt has a positive nuc stress test showing anterior wall ischemia. Cath is planned for Wednesday. Notified Marlen Santiago where pt resides. Transport, when arranged, needs to be able to take pt electric scooter with them. Case Management d/c poc: Marlen Santiago Case Management to follow. Date Signed: 06/07/2018 12:02 PM Electronically Signed By:Shelia Gutierrez RN
--- NOTE | 2018-06-07 12:40 | SOAPPROG ---
MATTHEW Progress Note Assessment/Plan: 1. Chest pain - Pt presented with symptoms of chest pain concerning for angina. EKG and biomarkers were unremarkable. Stress testing is notable for inferolateral ischemia. Will arrange for cardiac catheterization in the a.m. For risk stratification. Creatinine is now near baseline. Xarelto will be held for 24 hr prior to the procedure. 2. HTN - adequately controlled. Continue current therapy. 3. Hyperlipidemia - LDL is in target range but not a goal. Continue current therapy. Will work on diet and exercise. Subjective: Please see H and P. Objective: Vital Signs Temp Pulse Resp BP Pulse Ox 37.2 C 81 16 122/88 H 100 06/07/18 08:00 06/07/18 08:00 06/07/18 08:00 06/07/18 08:00 06/07/18 08:00 Laboratory Results 06/07/18 03:21 06/07/18 03:21 06/06/18 06/07/18 06/08/18 05:59 05:59 05:59 Intake Total 1500 1900 Balance 1500 1900 PT 14.5 SEC (12.0-15.0) 06/07/18 08:50 INR 1.11 (0.83-1.16) 06/07/18 08:50 Physical Exam - Physical Exam General Appearance: alert, mild distress Respiratory: lungs clear Cardiac/Chest: regular rate, rhythm Abdomen: non-tender, soft Extremities: pedal edema Neuro/Psych: alert, oriented x 3 ICD10 Worksheet Patient Problems: Problems Problem Status Onset Chest pain Acute Atrial fibrillation Acute Chronic pain Acute
--- NOTE | 2018-06-07 15:43 | HOSPPROG ---
Hospitalist Progress Note Assessment/Plan: 52-year-old man with a history of AFib, diastolic heart failure and coronary artery disease per CT imaging comes in with chest pain. He does have a history of chronic pain with chronic narcotic dependency. At the snf where he lives they have been working on decreasing the dose of his narcotics which has been an issue for him and his pain control. # chest pain with negative troponins. The patient has had chest pain for over 24 hr no variation with rest or exertion. EKG is unchanged and troponin was negative. I discussed his case with Cardiology who did the nuclear stress test. Initial images showed a small area of perfusion defect and he will get a rest test in the a.m.. * Nuclear imaging is positive for anterior wall ischemia, * cath tomorrow after xarelto off for >24 hours * renal function improved * CP with normal trop. doesn't need increased doses of morphine or dilauded. # chronic pain with chronic narcotic dependency. I spoke with [facility] for pain control. He sees DIXIE De Leon. He gets oxycodone 30mg q4 hours as needed for severe pain. Last seen by her on April 28. Had been on fentanyl patch but since had etoh on screen they have been weaning off of the patch and he is on 125mcg. He has not had this on his [facility] med list. I suspect they may have discontinued it but he has had them recently refilled and he should have a supply. Since he is not on it now, I will not restart it but I can increase the frequency of oxy as needed. * Last seen april 28, missed appt on May 25 (no show) and missed appt today. He should be out of meds. * He has received various oxycodone from his PCP from May 21, , , ... from his PCP clinic. I relayed this to his pain clinic. * I think it is OK to increase the oxycodone to q4, however he looks comfortable. * NO prescriptions on discharge for pain medications. # diastolic heart failure with massive fluid overload at baseline. He has some mild renal insufficiency likely from diuresis * Resume Lasix at slightly lower dose in the morning and continue daily weights * Current weight is stable from his discharge weight several months ago # history of AFib status post cardioversion he is currently in sinus rhythm # COPD continue pulmonary medications # dyslipidemia # hypertension # history of PE on anticoagulation Subjective: pain all over, back chest Objective: Vital Signs Temp Pulse Resp BP Pulse Ox 37.2 C 81 16 122/88 H 100 06/07/18 08:00 06/07/18 08:00 06/07/18 08:00 06/07/18 08:00 06/07/18 08:00 Laboratory Results 06/07/18 03:21 06/07/18 03:21 06/06/18 06/07/18 06/08/18 05:59 05:59 05:59 Intake Total 1500 1900 1100 Balance 1500 1900 1100 PT 14.5 SEC (12.0-15.0) 06/07/18 08:50 INR 1.11 (0.83-1.16) 06/07/18 08:50 - Physical Exam Constitutional: no apparent distress, obese Eyes: PERRL Cardiovascular: regular rate and rhythym, edema Respiratory: no respiratory distress Gastrointestinal: normoactive bowel sounds Genitourinary: no bladder fullness Skin: warm, normal color Neurologic: AAOx3 Psychiatric: interacting appropriately ICD10 Worksheet Patient Problems: Problems Problem Status Onset Chest pain Acute Chronic pain Acute Atrial fibrillation Acute
[2018-06-07] MEDS: ATORVASTATIN CALCIUM 10 MG TAB PO SCH (20:41)
[2018-06-07] MEDS: MELATONIN 3 MG TAB PO SCH (20:41)
[2018-06-07] MEDS: traZODone 50 MG TAB PO SCH (20:42)
[2018-06-08] MEDS: ACETAMINOPHEN 325 MG TAB PO PRN ×4 (00:36→22:52)
[2018-06-08] MEDS: TEMAZEPAM 15 MG CAP PO PRN ×2 (00:37→23:14)
[2018-06-08] MEDS: HEPARIN/DEXTROSE 500 ML IV SCH (01:04)
[2018-06-08] MEDS ORDERED: DIAZEPAM 5 MG TAB PO ONE (06:00)
[2018-06-08] MEDS ORDERED: ASPIRIN EC 325 MG TAB PO ONE ×2 (06:00→09:59)
[2018-06-08] MEDS ORDERED: FAMOTIDINE 20 MG TAB PO ONE (06:00)
[2018-06-08] MEDS ORDERED: diphenhydrAMINE 25 MG CAP PO ONE (06:00)
[2018-06-08 07:54] LABS: PLATELET COUNT 168 10^3/uL (150-400)
[2018-06-08 07:56] LABS: INR 0.92 (0.83-1.16); PROTIME(PATIENT) 12.6 SEC (12.0-15.0)
[2018-06-08] MEDS ORDERED: LIDOCAINE 1% 300 MG/30 ML SDV ONE (09:34)
[2018-06-08] MEDS ORDERED: IOPAMIDOL (ISOVUE-370) 150 ML BTL IV ONE (09:35)
[2018-06-08] MEDS ORDERED: MIDAZOLAM 2 MG/2 ML VIAL ONE (10:10)
[2018-06-08] MEDS ORDERED: MIDAZOLAM 2 MG/2 ML VIAL IVP ONE (10:12)
--- NOTE | 2018-06-08 10:12 | PDANEPAE ---
ANE Past Medical History - Cardiovascular History Hx Hypertension: No Hx Arrhythmias: Yes Hx Chest Pain: Yes Hx Coronary Artery / Peripheral Vascular Disease: Yes Hx CHF / Valvular Disease: Yes Hx Palpitations: Yes Cardiovascular History Comment: A-Fib - Pulmonary History Hx COPD: Yes Hx Recent Upper Respiratory Infection: No Hx Oxygen in Use at Home: No Hx Sleep Apnea: Yes - Endocrine History Hx Diabetes: No Hypothyroid: No Hyperthyroid: No Obesity: yes, severe - Neurological & Psychiatric Hx Hx Neurological and Psychiatric Disorders: Yes Neurological / Psychiatric History Comment: claustrophobia - GI History GERD: no Hx Gastrointestinal Disorders: No - Chronic Pain History Chronic Pain: Yes ANE Review of Systems Review of Systems: - Exercise capacity Exercise capacity: <4 METS ANE Patient History - Allergies Allergies/Adverse Reactions: No Known Allergies Allergy (Unverified 08/29/17 07:59) - Home Medications Home Medications: Atorvastatin Calcium [Lipitor 10 mg (*)] 10 mg PO HS 08/29/17 [Last Taken ] Cyanocobalamin [Vitamin B12 (*)] 1,000 mcg PO DAILY 08/29/17 [Last Taken ] Pregabalin [LYRICA] 200 mg PO BID 08/29/17 [Last Taken 03/31/18 08:00] Rivaroxaban [Xarelto] 20 mg PO DAILY 08/29/17 [Last Taken 03/31/18] Magnesium Citrate [Magnesium Citrate 300 ml (*)] 10 oz PO DAILY PRN 03/31/18 [ Last Taken Unknown] Melatonin [Melatonin 3 MG (*)] 3 mg PO HS 03/31/18 [Last Taken 03/30/18] Sennosides/Docusate Sodium [Senna-S Tablet] 1 each PO BID 03/31/18 [Last Taken 03/31/18 08:00] oxyCODONE IR [Oxycodone Ir (*)] 30 mg PO Q6 PRN 03/31/18 [Last Taken Unknown] Acetaminophen [Tylenol 325mg (*)] 650 mg PO Q6 PRN 06/05/18 [Last Taken Unknown] - Anes Hx Anes Hx: no prior problems - Smoking Hx Smoking Status: Never smoked - Alcohol Use Alcohol Use: Rarely - Family Anes Hx Family Anes Hx: neg - N/A ANE Labs/Vital Signs - Labs Result Diagrams: 06/08/18 07:41 06/08/18 07:41 - Vital Signs Blood Pressure: 137/69 Heart Rate: 68 Respiratory Rate: 18 O2 Sat (%): 100 Height: 182.88 cm Weight: 138.884 kg ANE Physical Exam - Airway Neck exam: FROM Mallampati Score: Class 2 Mouth exam: normal dental/mouth exam - Pulmonary Pulmonary: no respiratory distress, no rales or rhonchi, clear to auscultation - ASA Status ASA Status: III ANE Anesthesia Plan Anesthesia Plan: general endotracheal anesthesia Total IV Anesthesia: No
[2018-06-08] MEDS ORDERED: fentaNYL 100 MCG/2 ML INJ ONE (10:25)
[2018-06-08] MEDS ORDERED: ROCURONIUM 50 MG/5 ML VIAL ONE (10:26)
[2018-06-08] MEDS ORDERED: SUCCINYLCHOLINE CHLORIDE 200 MG/10 ML SYR IVP ONE (10:26)
[2018-06-08] MEDS ORDERED: PROPOFOL 200 MG/20 ML VIAL ONE (10:26)
[2018-06-08] MEDS ORDERED: METOCLOPRAMIDE 10 MG/2 ML VIAL ONE ×2 (10:26)
[2018-06-08] MEDS ORDERED: LIDOCAINE 2% 2 ML INJ ONE ×2 (10:28)
[2018-06-08] MEDS ORDERED: PHENYLEPHRINE HCL 100 MCG/ML SYR ONE (10:46)
--- NOTE | 2018-06-08 11:29 | SOAPPROG ---
MATTHEW Progress Note Assessment/Plan: 1. Chest pain - Pt presented with symptoms of chest pain concerning for angina. EKG and biomarkers were unremarkable. Stress testing is notable for inferolateral ischemia and apical infarct. Cardiac catheterization on 06/08/18 with no significant obstructive disease. Continue secondary prevention. 2. HTN - adequately controlled. Continue current therapy. 3. Hyperlipidemia - LDL is in target range but not a goal. Continue current therapy. Will work on diet and exercise. 4. PE - Pt has a history of pulmonary embolism and is on xarelto for anticoagulation. Angioseal went well. Anticipate resuming xarelto in the am.Ok to resume heparin gtt at 6:00 pm with no bolus. 5. A-fib - Pt has a history of A-fib. He is managed with a rhythm control and anticoagulation strategy. Continue current therapy. Will resume xarelto in am as noted above. Subjective: Cardiac catheterization today. Objective: Vital Signs Temp Pulse Resp BP Pulse Ox 37.2 C 68 18 137/69 H 100 06/08/18 07:17 06/08/18 10:12 06/08/18 10:12 06/08/18 10:12 06/08/18 10:12 Laboratory Results 06/08/18 07:41 06/08/18 07:41 06/07/18 06/08/18 06/09/18 05:59 05:59 05:59 Intake Total 1900 3527 Output Total 650 900 Balance 1900 2877 -900 PT 12.6 SEC (12.0-15.0) 06/08/18 07:41 INR 0.92 (0.83-1.16) 06/08/18 07:41 Physical Exam - Physical Exam General Appearance: alert, no apparent distress Respiratory: lungs clear Cardiac/Chest: regular rate, rhythm Extremities: pedal edema Neuro/Psych: alert, oriented x 3 ICD10 Worksheet Patient Problems: Problems Problem Status Onset Chest pain Acute Atrial fibrillation Acute Chronic pain Acute
--- NOTE | 2018-06-08 11:36 | CPIP ---
DATE OF PROCEDURE: 06/08/2018 PROCEDURE: 1. Coronary angiography. 2. Left ventriculography. INDICATION: 1. Coronary artery disease by coronary artery calcifications. 2. Chest pain syndrome. 3. Abnormal nuclear stress test with 2 areas of ischemia suggesting high risk. ACCESS: Patient was prepped and draped in sterile fashion. 1% lidocaine was used to anesthetize the right inguinal region. A 6-Dominican introducer sheath was placed selectively in the right common femo ral artery via modified Seldinger technique. CORONARY ANGIOGRAPHY: A 6-Dominican JL4 was advanced to the left main coronary artery. It did not enga ge the left main coronary artery well and was exchanged for a 6-Dominican JL4.5, catheter. The 6-Dominican JL4.5 catheter was used to engage the left main and obtain images. The left main coronary artery bi furcated into an LAD and circumflex coronary arteries. The left main coronary artery appeared normal . The left anterior descending coronary artery gave rise to 1 prominent diagonal branch. The left a nterior descending coronary artery and its diagonal branch appeared normal. The circumflex coronary artery is a large vessel and was codominant circumflex coronary artery and its branches appeared norm al. A 6-Dominican JR4 was advanced to the right coronary artery and images obtained. The right coronar y artery is small. The right coronary artery appeared normal. LEFT VENTRICULOGRAPHY: A 6-Dominican pigtail catheter was advanced in the left ventricle and images obt ained. Left ventricle is normal in size, had normal systolic function. Estimated ejection fraction is 55%. COMPLICATIONS: None. CONCLUSIONS: 1. Normal coronary arteries. 2. Normal left ventricular size and systolic function. 3. Plan is for medical management. /[id number]/MODL
[2018-06-08] MEDS ORDERED: ATROPINE SULFATE 1 MG/10 ML SYR IVP PRN (11:42)
[2018-06-08] MEDS ORDERED: HYDROmorphONE/DILAUDID 1 MG/ML INJ IVP ONE (12:15)
[2018-06-08] MEDS ORDERED: HYDROCODONE/APAP 5/325 TAB PO PRN (12:32)
[2018-06-08] MEDS ORDERED: NALOXONE HCL 0.4 MG/ML INJ IVP PRN (12:32)
[2018-06-08] MEDS ORDERED: ONDANSETRON 4 MG/2 ML VIAL IVP PRN (12:32)
[2018-06-08] MEDS ORDERED: LR 500 ML IV PRN (12:32)
[2018-06-08] MEDS ORDERED: PHENYLEPHRINE HCL 100 MCG/ML SYR IVP PRN (12:32)
[2018-06-08] MEDS ORDERED: ACETAMINOPHEN 500 MG TAB PO PRN (12:32)
--- NOTE | 2018-06-08 12:33 | POSTANESTH ---
Post Anesthetic Evaluation Cardiovascular Status: Normal, Stable Respiratory Status: Normal, Stable Level of Consciousness/Mental Status: Can Participate in Eval Pain Control: Adequate, Prn Tx Ordered Nausea/Vomiting Control: Adequate, Prn Tx Ordered Complications Possibly Related to Anesthesia: None Noted
[2018-06-08] MEDS: PREGABALIN 100 MG CAP PO SCH ×2 (13:12→21:47)
[2018-06-08] MEDS: CYANO/VITAMIN B12 1000 MCG TAB PO SCH (13:12)
[2018-06-08] MEDS: SOTALOL HCL 80 MG TAB PO SCH ×2 (13:12→21:47)
[2018-06-08] MEDS: SENNOSIDES/DOCUSATE SODIUM TAB PO SCH ×2 (13:12→21:47)
[2018-06-08] MEDS: FUROSEMIDE 40 MG TAB PO SCH ×2 (15:34→15:36)
[2018-06-08] MEDS: MAGNESIUM CITRATE 300 ML BOTTLE PO PRN (15:40)
--- NOTE | 2018-06-08 16:41 | CPEKG ---
Test Reason : OPEN Blood Pressure : / mmHG Vent. Rate : 069 BPM Atrial Rate : 067 BPM P-R Int : 190 ms QRS Dur : 092 ms QT Int : 414 ms P-R-T Axes : 023 -08 029 degrees QTc Int : 444 ms Sinus rhythm Low voltage, precordial leads Abnormal R-wave progression, early transition Confirmed by Lois Coon ([id number]) on 06/08/2018 4:41:08 PM Referred By: Confirmed By:Lois Coon
[2018-06-08] MEDS: HYDROmorphONE/DILAUDID 1 MG/ML INJ IVP PRN ×2 (17:22→21:50)
[2018-06-08] MEDS ORDERED: HEPARIN/DEXTROSE 500 ML IV SCH (18:00)
[2018-06-08] MEDS ORDERED: HEPARIN 10,000 UNIT/10 ML MDV (1,000 UNIT/ML) IVP PRN (18:00)
--- NOTE | 2018-06-08 18:17 | HOSPPROG ---
Hospitalist Progress Note Assessment/Plan: Assessment: 52 yo M p/w acute chest pain, abnormal stress test, chronic pain w/ continuous opiate dependency Plan: # chest pain. acute, new problem, further w/u indicated. abnormal stress test w / high-risk co-morbid conditions for CAD -cath today -d/w Dr. Alan post-cath, he reports no obstructive CAD # chronic pain with chronic narcotic dependency. cont oxy IR + IV dilaudid PRN breakthrough, patient knows he will not be receiving IV breakthrough at DC # chronic diastolic heart failure. massive fluid overload at baseline, currently stable weight, cont home Rx -CXR w/ cardiomegally but no acute CHF (personally interpreted) # history of AFib status post cardioversion he is currently in sinus rhythm # chronic hypoxic respiratory failure w/ COPD. continue pulmonary medications # dyslipidemia # hypertension # history of PE on anticoagulation. d/w Dr. Alan, he recommends restarting hep gtt w/o bolus at 6 p.m. given hx of PE and risk of groin hematoma which would be particularly challenging to compress if bled on xarelto -plan to restart xarelto in AM Diet. Cardiac Prophylaxis. High risk, heparin drip as above Code. Do not resuscitate Disposition. Anticipated discharge is 06/09, pending no bleeding complications from the groin site overnight. Subjective: Patient reports pain all over his body, no increased pain in the right groin site Objective: Vital Signs Temp Pulse Resp BP Pulse Ox 37.1 C 87 16 112/58 L 96 06/08/18 16:00 06/08/18 16:00 06/08/18 16:00 06/08/18 16:00 06/08/18 16:00 Laboratory Results 06/08/18 07:41 06/08/18 07:41 06/07/18 06/08/18 06/09/18 05:59 05:59 05:59 Intake Total 1900 3527 2500 Output Total 650 1200 Balance 1900 2877 1300 PT 12.6 SEC (12.0-15.0) 06/08/18 07:41 INR 0.92 (0.83-1.16) 06/08/18 07:41 - Physical Exam Constitutional: no apparent distress, chronically ill appearing, obese, uncomfortable, No not in pain (mild) Cardiovascular: regular rate and rhythym, no murmur, rub, or gallop, edema (1+ bilat LE), No tachycardia Respiratory: no respiratory distress, no rales or rhonchi, clear to auscultation Gastrointestinal: normoactive bowel sounds, soft, non-tender abdomen, no palpable masses Skin: other (no ecchymoses/induration/fluctuance at R groin, mild tenderness) Neurologic: AAOx3 Psychiatric: interacting appropriately, not anxious, not encephalopathic, thought process linear ICD10 Worksheet Patient Problems: Problems Problem Status Onset Chest pain Acute Chronic pain Acute Atrial fibrillation Acute
[2018-06-08] MEDS: traZODone 50 MG TAB PO SCH (21:47)
[2018-06-08] MEDS: ATORVASTATIN CALCIUM 10 MG TAB PO SCH (21:47)
[2018-06-08] MEDS: MELATONIN 3 MG TAB PO SCH (22:51)
[2018-06-09] MEDS: HYDROmorphONE/DILAUDID 1 MG/ML INJ IVP PRN ×3 (01:59→10:40)
[2018-06-09 08:02] VITALS: BP 114/76
[2018-06-09] MEDS ORDERED: RIVAROXABAN 20 MG TAB PO SCH (09:00)
[2018-06-09] MEDS: CYANO/VITAMIN B12 1000 MCG TAB PO SCH (09:02)
[2018-06-09] MEDS: ACETAMINOPHEN 325 MG TAB PO PRN (09:03)
[2018-06-09] MEDS: SENNOSIDES/DOCUSATE SODIUM TAB PO SCH (09:03)
[2018-06-09] MEDS: PREGABALIN 100 MG CAP PO SCH (09:03)
[2018-06-09] MEDS: SOTALOL HCL 80 MG TAB PO SCH (09:04)
[2018-06-09] MEDS: FUROSEMIDE 40 MG TAB PO SCH (09:04)
--- NOTE | 2018-06-09 09:39 | ASMTLACE ---
LACE Length of stay for Answers: 4-6 days current admission Acuity / Level of Answers: Yes Care: Did the patient have an inpatient admission? Comorbidities - select Answers: Coronary Artery Disease all that apply Opioid dependence / Chronic pain Other Notes: HTN, Obesity # of Emergency department Answers: 1-2 visits in the last 6 months Score: 15 Date Signed: 06/09/2018 09:38 AM Electronically Signed By:KIM Umaña
--- NOTE | 2018-06-09 09:54 | ASMTDCNOTE ---
Case Management Discharge Discharge Order Complete? Answers: Yes Patient to Obtain Answers: Other Notes: [facility] Medications Transportation Arranged Answers: [facility] W/C Transport will Pick (Date 06/09/2018 11:00 AM & Time) EMTALA Complete Answers: No Case Management Transport Answers: Yes Form Complete Faxed Final Orders Answers: Yes Agency/Facility Transfer Answers: Yes Report Printed & Faxed to Receiving Agency Family Notified Answers: No Discharge Comments Notes: Pts case discussed w/ EVANS Leo and Dr. Barlow regarding d/c POC. DC orders sent. CM provided EVANS Leo w/ phone number to give report. CM left Tk at message at [facility] and notified him of the d/c. CM arranged for [facility] w/c transport and provided pts Medicaid number. CM available for changes. Plan: [facility] Date Signed: 06/09/2018 09:53 AM Electronically Signed By:KIM Umaña
--- NOTE | 2018-06-09 10:19 | PDIAF ---
- Diagnosis Diagnosis: Non-cardiac chest pain, chronic pain w/ continuous opiate dependency Code Status: Do Not Resuscitate - Medication Management Discharge Medications: Medications to Continue on Transfer Atorvastatin Calcium [Lipitor 10 mg (*)] 10 mg PO HS 08/29/17 [Last Taken ] Cyanocobalamin [Vitamin B12 (*)] 1,000 mcg PO DAILY 08/29/17 [Last Taken ] Pregabalin [LYRICA] 200 mg PO BID 08/29/17 [Last Taken 03/31/18 08:00] Rivaroxaban [Xarelto] 20 mg PO DAILY 08/29/17 [Last Taken 03/31/18] traZODone [traZODONE 50MG (*)] 50 mg PO HS #20 tab 09/10/17 [Last Taken 03/30/18 ] Magnesium Citrate [Magnesium Citrate 300 ml (*)] 10 oz PO DAILY PRN 03/31/18 [ Last Taken Unknown] Melatonin [Melatonin 3 MG (*)] 3 mg PO HS 03/31/18 [Last Taken 03/30/18] Sennosides/Docusate Sodium [Senna-S Tablet] 1 each PO BID 03/31/18 [Last Taken 03/31/18 08:00] Sotalol HCl [Betapace 80 MG (*)] 120 mg PO BID tab 04/12/18 [Last Taken Unknown ] Acetaminophen [Tylenol 325mg (*)] 650 mg PO Q6 PRN 06/05/18 [Last Taken Unknown] Furosemide [Lasix 40 MG (*)] 80 mg PO BID@0900,1500 tab 06/09/18 [Last Taken Unknown] oxyCODONE IR [Oxycodone Ir (*)] 30 mg PO Q6 #0 06/09/18 [Last Taken Unknown] Additional Medication Instructions: NA Discharge Medications: Refer to the Discharge Home Medication list for PRN reason. PICC Care - Routine: N/A - Orders Services needed: Registered Nurse, Certified Devops Developer, Physical Therapy, Occupational Therapy Isolation Type: None Oxygen: 5 LPM continuous Diet Recommendation: no restrictions on diet Weigh Patient: weekly [place]: Not applicable - Follow Up Care Current Providers and Referrals: JUAN R RICHARDSON [Primary Care Provider] - As per Instructions Trent Truong MD [Medical Doctor] - (please follow-up as scheduled )
--- NOTE | 2018-06-09 10:25 | ASDISCHSUM ---
Discharge Information Plan Status:SNF Medically Cleared to Leave:06/09/2018 Discharge Date:06/09/2018 CM D/C Disposition: ADT D/C Disposition:Halfway Facility Projected Discharge Date:06/09/2018 11:00 AM Transportation at D/C: Discharge Delay Reason: Follow-Up Date:06/09/2018 11:00 AM Discharge Slot: Final Diagnosis: Placement Information Referral Type:*Care Home/SNF Referral ID:[id number] Provider Name:Marlen Cantuulder Address 1:[address] Address 2: City:[place] Selection Factors: State:[place] Patient Contact Information Contact Name:RAÚL Relationship: Address: Work Phone: City: [facility] Phone: [facility] Code: Email: Financial Information Financial Class:Medicaid Primary Plan Desc[place] Primary Plan Number:[id number] Secondary Plan Desc: Secondary Plan Number: Assessment Information LACE LACE Length of stay for Answers: 4-6 days current admission Acuity / Level of Answers: Yes Care: Did the patient have an inpatient admission? Comorbidities - select Answers: Coronary Artery Disease all that apply Opioid dependence / Chronic pain Other Notes: HTN, Obesity # of Emergency department Answers: 1-2 visits in the last 6 months Score: 15 Date Signed: 06/09/2018 09:38 AM Electronically Signed By:KIM Umaña [facility] Progress Note CM Note CM Note Notes: Reviewed pt in rounds, he lives at [facility] and was admitted for chest pain. He has been requesting pain medication and has been unpleasant at times with staff. Pt will get a stress test today if everything ok, he can return to [facility] w/f. DC Plan: [facility] Date Signed: 06/05/2018 12:05 PM Electronically Signed By:Kathi Campoverde RN [facility] CM Progress Note CM Note CM Note Notes: 06/07/2018 Case Management Note Discussed pt during rounds this morning. Pt has a positive nuc stress test showing anterior wall ischemia. Cath is planned for Wednesday. Notified [facility] where pt resides. Transport, when arranged, needs to be able to take pt electric scooter with them. Case Management d/c poc: [facility] Case Management to follow. Date Signed: 06/07/2018 12:02 PM Electronically Signed By:Shelia Gutierrez RN Case Management Discharge Plan Note Case Management Discharge Discharge Order Complete? Answers: Yes Patient to Obtain Answers: Other Notes: [facility] Medications Transportation Arranged Answers: [facility] W/C Transport will Pick (Date 06/09/2018 11:00 AM & Time) EMTALA Complete Answers: No Case Management Transport Answers: Yes Form Complete Faxed Final Orders Answers: Yes Agency/Facility Transfer Answers: Yes Report Printed & Faxed to Receiving Agency Family Notified Answers: No Discharge Comments Notes: Pts case discussed w/ EVANS Leo and Dr. Barlow regarding d/c POC. DC orders sent. [facility] provided [facility] Leo w/ phone number to give report. [facility] left Tk at message at [facility] and notified him of the d/c. CM arranged for [facility] w/c transport and provided pts Medicaid number. CM available for changes. Plan: [facility] Date Signed: 06/09/2018 09:53 AM Electronically Signed By:KIM Umaña Intervention Information
--- NOTE | 2018-06-09 10:41 | PDCARPN ---
Cardiology Progress Note Chief Complaint: Chest pain Assessment/Plan: Assessment: 1. Chest pain - Pt presented with symptoms of chest pain concerning for angina. EKG and biomarkers were unremarkable. Stress testing was notable for inferolateral ischemia and apical infarct. Cardiac catheterization on 06/08/18 with no significant obstructive disease. Continue secondary prevention. Right groin site intact with no bleeding, ecchymosis, or tenderness. Dressing removed. Instructed to clean area with soap and water twice daily. NO ointments to area. 2. HTN - adequately controlled. BP today 114/76. Continue current therapy. 3. Hyperlipidemia - LDL is in target range but not a goal. Continue current therapy. Will work on diet and exercise. 4. PE - Pt has a history of pulmonary embolism and is on xarelto for anticoagulation. Angioseal went well. Xarelto resumed this am. 5. A-fib - Pt has a history of A-fib. He is managed with a rhythm control and anticoagulation strategy. Continue current therapy. Xarelto resumed this AM. Plan: Discharge today. Call [facility] should there be groin concerns. 06/09/18 10:36 Subjective: I feel good today. No groin concerns. Winded after just getting out of shower. Reviewed/Discussed With: multidisciplinary team Time Spent with Patient: greater than 25 minutes Time Spent with Patient: Greater than 25 minutes spent on this patients care, greater than 50% of time spent counseling, educating, and coordinating care regarding the above mentioned plan. Objective: Vital Signs (8 Hrs) Temp Pulse Resp BP Pulse Ox 06/09/18 08:01 36.8 C 73 18 114/76 100 06/09/18 05:59 37.1 C 78 16 112/72 100 Intake/Output (24 Hrs) 06/08/18 06/09/18 06/10/18 05:59 05:59 05:59 Intake Total 3527 3211 Output Total 650 2350 Balance 2877 861 Intake: Oral (ml) 2875 2800 IV Infused (ml) 652 411 Heparin/Dextrose 500 ml @ 282 Per Protocol IV CONT ROSMERY Rx#:[id number] Heparin/Dextrose 500 ml @ 370 411 Per Protocol IV CONT ROSMERY Rx#:[id number] Output: Urine (ml) 650 2350 Urinal 650 2350 Other: Weight 138.884 kg 138.884 kg 140.5 kg Result Diagrams: 06/09/18 05:58 06/08/18 07:41 Telemetry: Sinus Rhythm w/ rate 76 - Physical Exam Constitutional: no apparent distress Cardiovascular: regular rate and rhythm, no murmurs, no rubs, no gallops Peripheral Pulses: 2+: femoral (R), dorsalis-pedis (R), dorsalis-pedis (L) Respiratory: clear to auscultate bilat, no crackles, no wheezes Skin: warm Neurologic: AAOx3 Psychiatric: cooperative, interactive, not anxious ICD10 Worksheet Patient Problems: Problems Problem Status Onset Chest pain Acute Chronic pain Acute Atrial fibrillation Acute
--- NOTE | 2018-06-09 11:01 | PDIAF ---
- Diagnosis Diagnosis: Non-cardiac chest pain, chronic pain w/ continuous opiate dependency Code Status: Do Not Resuscitate - Medication Management Discharge Medications: Medications to Continue on Transfer Atorvastatin Calcium [Lipitor 10 mg (*)] 10 mg PO HS 08/29/17 [Last Taken ] Cyanocobalamin [Vitamin B12 (*)] 1,000 mcg PO DAILY 08/29/17 [Last Taken ] Pregabalin [LYRICA] 200 mg PO BID 08/29/17 [Last Taken 03/31/18 08:00] Rivaroxaban [Xarelto] 20 mg PO DAILY 08/29/17 [Last Taken 03/31/18] traZODone [traZODONE 50MG (*)] 50 mg PO HS #20 tab 09/10/17 [Last Taken 03/30/18 ] Magnesium Citrate [Magnesium Citrate 300 ml (*)] 10 oz PO DAILY PRN 03/31/18 [ Last Taken Unknown] Melatonin [Melatonin 3 MG (*)] 3 mg PO HS 03/31/18 [Last Taken 03/30/18] Sennosides/Docusate Sodium [Senna-S Tablet] 1 each PO BID 03/31/18 [Last Taken 03/31/18 08:00] Sotalol HCl [Betapace 80 MG (*)] 120 mg PO BID tab 04/12/18 [Last Taken Unknown ] Acetaminophen [Tylenol 325mg (*)] 650 mg PO Q6 PRN 06/05/18 [Last Taken Unknown] Furosemide [Lasix 40 MG (*)] 80 mg PO BID@0900,1500 tab 06/09/18 [Last Taken Unknown] oxyCODONE IR [Oxycodone Ir (*)] 30 mg PO Q4 #0 06/09/18 [Last Taken Unknown] Additional Medication Instructions: NA Discharge Medications: Refer to the Discharge Home Medication list for PRN reason. PICC Care - Routine: N/A - Orders Services needed: Registered Nurse, Certified Fruit Or Nut Grower, Physical Therapy, Occupational Therapy Isolation Type: None Oxygen: 5 LPM continuous Diet Recommendation: no restrictions on diet, cardiac -low fat low salt Diet Texture: Regular Texture Diet Weigh Patient: weekly [place]: Not applicable Additional Instructions: Right groin precautions post cardiac angiogram for 1 week. 1. No heavy lifting, pushing, pulling greater than 10 pounds 2. No sitting in a tub of water. OK to shower. 3. Keep bowels soft to avoid bearing down causing increased pressure at groin access site. 4. Keep site clean with soap and water. No ointments. No dressing needed. Call [facility] should there be any questions regarding groin site. Including unusual pain at site, Hematoma, or bleeding. No follow up needed unless right groin site concerns. - Follow Up Care Current Providers and Referrals: JUAN R RICHARDSON [Primary Care Provider] - As per Instructions Trent Truong MD [Medical Doctor] - (please follow-up as scheduled )
--- NOTE | 2018-06-09 22:17 | PDDCSUM ---
Discharge Summary Discharge Summary: Date of admission: 06/04/18 Date of discharge: 06/09/18 Discharge diagnoses: 1. Acute chest pain 2. Chronic pain w/ continuous opiate dependency 3. Chronic diastolic CHF 4. Paroxysmal Afib 5. Hx of PE 6. Chronic hypoxic respiratory failure Consultations: Cardiology Procedures: Abnormal nuc stress test; Cardiac Cath demonstrating no flow- limiting stenosis Chief complaint: Acute chest pain Subjective: ongoing total body pain at time of discharge Physical exam at discharge: SBP 114, HR 73, Afeb overnight, on 5LPM continuous, net neg 5kg LOS, AAOX3 Hospital course: 52 yo M p/w acute chest pain, found to be atypical and NOT cardiopulmonary in origin. 1. Chest pain. atypical, ruled out cardiac etiology w/ NEGATIVE cath. The character of his chest pain did not evolve, and our recommendations would be to treat this character of chest pain SUPPORTIVELY, NOT w/ further cardiac testing. 2. Chronic pain with continuous opiate dependency. Patient recently weaned off fentanyl patch as outpatient, but he continues to request his PRN oxy IR around the clock, on schedule. He requested that his PRN dosing be modified to scheduled dosing to prevent medication bias (witholding of Rx), and, since he is reporting pain 24/ and receiving the oxy IR precisely on his PRN intervals, our recommendation is to adjust to a scheduled dosing in the short-term and have him readdress how he perceives baseline pain control with his outpatient pain mgmt provider. He is not requesting to go back onto fentanyl at this time, but his use of oxy IR to control baseline pain is an inappropriate use of a short-acting medication for long-term usage. He definitely exhibits pain med seeking behavior, such as requesting use of IV pain Rx for treatment of chronic pain. 3. Chronic diastolic heart failure. Massive fluid overload at baseline, currently stable weight and lost 5kg LOS w/o escalating diuresis. Continue to monitor outpatient weights. 4. Paroxysmal atrial fibrillation. Cont on xarelto. 5. Chronic hypoxic respiratory failure w/ COPD. Continue pulmonary medications 6. History of PE. He received bridging heparin post-cath, then initiation of xarelto on 10/4 AM after he had no groin site complications. Discharge medications: please see official DC med rec sheet in chart; of note, adjusted to scheduled oxy IR q4h until he sees his pain net application support specialist; cont other home Rx. Discharge instructions: please schedule outpt pain mgmt appointment next week. > 30 minutes spent on direct patient care, as well as discharge planning and preparation.
== END 2018-06-09 11:13 | DRG 192 ==
LOC: EDUNIT# → F2W 06-05 00:51 → OBSVTOIN 06-05 14:15
PROVIDERS: ADMIT Student in an Organized Health Care Education/Training Program; ATTEND Student in an Organized Health Care Education/Training Program
PROC: B2151ZZ Fluoroscopy of Left Heart using Low Osmolar Contrast (ICD-10-PCS; principal; 2018-06-08)
PROC: B2111ZZ Fluoroscopy of Multiple Coronary Arteries using Low Osmolar Contrast (ICD-10-PCS; principal; 2018-06-08)
DX: R07.89 Other chest pain (principal); J96.11 Chronic respiratory failure with hypoxia; I11.0 Hypertensive heart disease with heart failure; I50.32 Chronic diastolic (congestive) heart failure; F11.20 Opioid dependence, uncomplicated; E66.01 Morbid (severe) obesity due to excess calories; G89.29 Other chronic pain; I48.0 Paroxysmal atrial fibrillation; E78.5 Hyperlipidemia, unspecified; J44.9 Chronic obstructive pulmonary disease, unspecified; Z99.81 Dependence on supplemental oxygen; Z86.711 Personal history of pulmonary embolism; Z79.01 Long term (current) use of anticoagulants; Z66 Do not resuscitate
CPT/HCPCS: 84484-PO; 85520-90; A9500; C1760; J0330; J1170; J1644; J2250; J2370; J2704; J2765; J2785; J3010; J3360; Q9967

== ENCOUNTER 2018-07-13 12:10 | Inpatient (IN) | payer MEDICAID ==
[2018-07-13] MEDS ORDERED: NS 500 ML IV ONE (13:01)
[2018-07-13] MEDS ORDERED: ASPIRIN 81 MG CHEWABLE TAB PO ONE (13:01)
[2018-07-13 14:05] LABS: PLATELET COUNT 267 10^3/uL (150-400)
[2018-07-13 14:12] LABS: INR 0.91 (0.83-1.16); PROTIME(PATIENT) 12.5 SEC (12.0-15.0)
--- NOTE | 2018-07-13 14:27 | EDPHY ---
H & P Time Seen by Provider: 07/13/18 13:02 HPI/ROS: HPI Chest pain, worsening shortness of breath. 52-year-old male by private vehicle. This patient was recently admitted to our hospital from June 04 through June 09. Discharge diagnoses included chronic diastolic heart failure, chronic pain with opiate dependence, acute chest pain, chronic hypoxic respiratory failure, paroxysmal atrial fibrillation , history of pulmonary embolism currently on Xarelto. During that admission he also had a coronary catheterization done on June 08. This showed normal coronary arteries with normal left ventricular size and function. He presents the emergency department today complaining of chest pain which she describes as aching, sharp and substernal ongoing now for 2 days as well as worsening shortness of breath. He reports that he used to live in a [facility]. But his Medicaid was cut off. He is now living out of a hotel. He reports that he is unable to obtain his home oxygen which she is supposed to be on 24-7. ROS: Constitutional: No fever, no chills. No weakness. Eyes: No discharge. No changes in vision. ENT: No sore throat. No nasal congestion or rhinorrhea. Respiratory: No cough. As above. Cardiac: As above, no palpitations. Gastrointestinal: No abdominal pain, no vomiting, no diarrhea. Genitourinary: No hematuria. No dysuria or increased frequency with urination. Musculoskeletal: No back pain. No neck pain. No myalgias or arthralgias. Skin: No rashes. Neurological: No headache. No focal weakness or altered sensation. Past medical history: As above. Also includes obesity, hyperlipidemia, hypertension. Had an appointment with his urologic nurse Dr. Damion Truong that was scheduled for yesterday at 10:00 a.m.. He missed this because he thought that it was scheduled for today. He was apparently discharged from [facility] secondary to noncompliance with care and issues with the staff. Social history: Nonsmoker. Denies alcohol. Opiate dependence. Here by himself. Living out of a hotel currently. Physical Exam: General Appearance: Alert, mildly dyspneic, on high-flow nasal cannula oxygen. Morbid obesity. This patient is responding to questions appropriately and in full sentences. This patient appears well-hydrated and well-nourished. Eyes: Pupils equal and round no pallor or injection. No lid edema, erythema or injection. Respiratory: There are no retractions, lung sounds are distant bilaterally, scant wheezing and rhonchi on exhalation upper mccarthy. No tachypnea. Cardiovascular: Regular rate and rhythm. No murmur appreciated. Gastrointestinal: Abdomen is soft and nontender, no masses, bowel sounds normal. No focal tenderness at McBurney's point. No Roca sign. Neurological: Motor sensory function is grossly intact. Cranial nerves are normal. Gait is normal. Skin: Warm and dry, no rashes. Musculoskeletal: Neck is supple and nontender. Extremities are symmetrical. All joints range without pain or impingement. Psychiatric: No agitation. No depression. Database: EKG: EKG time is 12:18 p.m.; EKG shows a narrow complex normal sinus rhythm with a ventricular rate of 83. Low voltage noted in the precordial leads. The MD, QRS , intervals are within normal limits. QT interval prolonged at There are no ST -T wave changes indicative of ischemic or injury pattern. No evidence of right heart strain. Interpreted by me. Imaging: Chest x-ray AP portable; cardiomegaly, pulmonary venous hypertension. No acute failure. No evidence of infiltrate or pneumothorax. No other acute cardiopulmonary disease process noted. Interpreted by me. Procedures: Emergency department course: Triage vital signs reviewed. Blood pressure low at 96/66. Triage vital signs otherwise normal. Pulse oximetry 96% IV placed. Patient placed on a hall monitor. EKG obtained and reviewed by myself. 3:30 p.m., the patient's workup in the emergency department has essentially been unremarkable. Patient's room air pulse oximetry at rest is 91-92%. He gets around in an motorized chair. 4:30 p.m., the patient is refusing discharge without home oxygen. We are not able to get this for him at this time. He is staying in a hotel room. 4:50 p.m., discussed case with on-call hospitalist Dr. Lalo Deshpande. She graciously agreed to admit this patient to the hospitalist service. They will attempt to get him readmitted to [facility]. His remaining emergency department course under my care has been uneventful. He was admitted in stable condition. Differential Diagnosis: The differential diagnosis on this patient includes but is not limited to chronic congestive heart failure, chest pain with recent clean coronary catheterization, history of pulmonary embolism. This represents a partial list of diagnoses considered. These considerations are based on history, physical exam, past history, reassessment and diagnostic testing. Smoking Status: Never smoked Constitutional: Initial Vital Signs Temperature (C) 36.6 C 07/13/18 12:15 Heart Rate 84 07/13/18 12:15 Respiratory Rate 16 07/13/18 12:15 Blood Pressure 96/66 L 07/13/18 12:15 O2 Sat (%) 97 07/13/18 12:15 O2 Delivery Mode Nasal Cannula O2 (L/minute) 2 Allergies/Adverse Reactions: No Known Allergies Allergy (Unverified 08/29/17 07:59) Home Medications: Medication Instructions Recorded Atorvastatin Calcium [Lipitor 10 10 mg PO HS 08/29/17 mg (*)] Cyanocobalamin [Vitamin B12 (*)] 1,000 mcg PO DAILY 08/29/17 Pregabalin [LYRICA] 200 mg PO BID 08/29/17 Rivaroxaban [Xarelto] 20 mg PO DAILY 08/29/17 traZODone [traZODONE 50MG (*)] 50 mg PO HS #20 tab 09/10/17 Magnesium Citrate [Magnesium 10 oz PO DAILY PRN 03/31/18 Citrate 300 ml (*)] Melatonin [Melatonin 3 MG (*)] 3 mg PO HS 03/31/18 Sennosides/Docusate Sodium 1 each PO BID 03/31/18 [Senna-S Tablet] Sotalol HCl [Betapace 80 MG (*)] 120 mg PO BID tab 04/12/18 Acetaminophen [Tylenol 325mg (*)] 650 mg PO Q6 PRN 06/05/18 Furosemide [Lasix 40 MG (*)] 80 mg PO BID@0900,1500 tab 06/09/18 oxyCODONE IR [Oxycodone Ir (*)] 30 mg PO Q4 #0 06/09/18 Medical Decision Making - Diagnostics Imaging Results: Imaging Impressions Chest X-Ray 07/13/18 12:21 Impression: Cardiomegaly and pulmonary venous hypertension. No failure. - Data Points Laboratory Results: Laboratory Results 07/13/18 13:45 07/13/18 13:45 07/13/18 07/13/18 07/13/18 13:51 13:45 13:45 WBC RBC Hgb Hct MCV MCH MCHC RDW Plt Count MPV Neut % (Auto) Lymph % (Auto) [place] % (Auto) Eos % (Auto) Baso % (Auto) Nucleat RBC Rel Count Absolute Neuts (auto) Absolute Lymphs (auto) Absolute Monos (auto) Absolute Eos (auto) Absolute Basos (auto) Absolute Nucleated RBC Immature Gran % Immature Gran # PT 12.5 SEC SEC (12.0-15.0) INR 0.91 (0.83-1.16) APTT 20.0 SEC L SEC (23.0-38.0) Sodium 139 mEq/L mEq/L (135-145) Potassium 4.9 mEq/L mEq/L (3.3-5.0) Chloride 97 mEq/L mEq/L (97-110) Carbon Dioxide 21 mEq/l L mEq/l (22-31) Anion Gap 21 mEq/L H mEq/L (6-14) BUN 48 mg/dL H mg/dL (7-23) Creatinine 1.5 mg/dL H mg/dL (0.7-1.3) Estimated GFR 49 Glucose 72 mg/dL mg/dL (70-100) Calcium 9.0 mg/dL mg/dL (8.5-10.4) POC Troponin I 0.00 ng/mL ng/mL (0.00-0.08) 07/13/18 13:45 WBC 17.38 10^3/uL H 10^3/uL (3.80-9.50) RBC 3.63 10^6/uL L 10^6/uL (4.40-6.38) Hgb 11.4 g/dL L g/dL (13.7-17.5) Hct 34.5 % L % (40.0-51.0) MCV 95.0 fL fL (81.5-99.8) MCH 31.4 pg pg (27.9-34.1) MCHC 33.0 g/dL g/dL (32.4-36.7) RDW 18.6 % H % (11.5-15.2) Plt Count 267 10^3/uL 10^3/uL (150-400) MPV 10.5 fL fL (8.7-11.7) Neut % (Auto) 85.8 % H % (39.3-74.2) Lymph % (Auto) 8.1 % L % (15.0-45.0) [place] % (Auto) 4.5 % % (4.5-13.0) Eos % (Auto) 0.2 % L % (0.6-7.6) Baso % (Auto) 0.2 % L % (0.3-1.7) Nucleat RBC Rel Count 0.6 % H % (0.0-0.2) Absolute Neuts (auto) 14.93 10^3/uL H 10^3/uL (1.70-6.50) Absolute Lymphs (auto) 1.40 10^3/uL 10^3/uL (1.00-3.00) Absolute Monos (auto) 0.78 10^3/uL 10^3/uL (0.30-0.80) Absolute Eos (auto) 0.03 10^3/uL 10^3/uL (0.03-0.40) Absolute Basos (auto) 0.04 10^3/uL 10^3/uL (0.02-0.10) Absolute Nucleated RBC 0.10 10^3/uL H 10^3/uL (0-0.01) Immature Gran % 1.2 % H % (0.0-1.1) Immature Gran # 0.20 10^3/uL H 10^3/uL (0.00-0.10) PT INR APTT Sodium Potassium Chloride Carbon Dioxide Anion Gap BUN Creatinine Estimated GFR Glucose Calcium POC Troponin I Medications Given: Discontinued Medications Aspirin (Aspirin) 324 mg PO EDNOW ONE Stop: 07/13/18 13:02 Last Admin: 07/13/18 13:12 Dose: Not Given Sodium Chloride (Ns) 500 mls @ 1,000 mls/hr IV EDNOW ONE PRN Reason: Protocol Stop: 07/13/18 13:30 Last Admin: 07/13/18 14:03 Dose: 500 mls Point of Care Test Results: Chemistry 07/13/18 13:51 POC Troponin I 0.00 ng/mL ng/mL (0.00-0.08) Departure - Departure Disposition: [facility] Acute Clinical Impression: Chest pain, Dyspnea Additional Instructions: You have an appointment with Dr Truong at [facility] at [address] [place] [address], [address], [place] [address] ([phone]) on WednesdayAugust 16 at 10:30am. During this visit you will undergo a Pulmonary Function Test. It is very important that you DO NOT DRINK CAFFEINE OR ADMINISTER AN INHALER within 5 hours prior to the appointment/PFT. After the PFT you will see Dr Truong. Please call their office if you need to cancel or reschedule. Follow-up with [facility]. Referrals: [facility],. [Clinic] - As per Instructions Patient,NotPresent [Unknown] - As per Instructions Trent Truong MD [Medical Doctor] - As per Instructions
[2018-07-13] MEDS ORDERED: ONDANSETRON 4 MG/2 ML VIAL IVP PRN (17:34)
[2018-07-13] MEDS ORDERED: ONDANSETRON DISINTEGRATING 4 MG TAB PO PRN (17:34)
[2018-07-13] MEDS ORDERED: NS 1,000 ML IV SCH (17:45)
--- NOTE | 2018-07-13 18:45 | GHP ---
DATE OF ADMISSION: 07/13/2018 HISTORY OF PRESENT ILLNESS: The patient is a pleasant 52-year-old gentleman with a history of contin uous narcotic dependence, atrial fibrillation, and chest pain, with recent normal coronary angiogram, who presents to the hospital with chest pain today. He was discharged from [facility] yesterday or 2 days prior after his Medicaid had lapsed. He was discharged without oxygen, and he has been dyspne ic with chest pain. He presented to the emergency department where he had an EKG that was unchanged. A chest x-ray was relatively unremarkable. Negative troponin. He has not had fever or chills. Hi s complaints are ongoing pain everywhere, including his chest. He thinks his lungs are hurting him. He has a history of pulmonary embolism diagnosed in the past, and he is maintained on Xarelto, which he has been taking. He asked me for narcotics during the interview a couple of times. REVIEW OF SYSTEMS: Complete 10-point review of systems conducted and negative except as noted in the HPI. PAST MEDICAL HISTORY: 1. Chest pain syndrome with normal cardiac workup. 2. History of PE, on anticoagulation. 3. Suspected obesity hypoventilation syndrome. 4. Chronic hypoxemic respiratory failure. 5. Hyperlipidemia. 6. Atrial fibrillation. 7. Multiple orthopedic injuries. FAMILY HISTORY: Notable for type 2 diabetes. 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 Currently living in a long-term, although he was just evicted. No tobacco. ALLERGIES: No known drug allergies. HOME MEDICATION LIST: From last hospitalization, Tylenol, atorvastatin, B12, Lasix 80 twice daily, m agnesium citrate, melatonin, oxycodone 30 q.4 h., Lyrica 200 twice daily, rivaroxaban, senna, sotalol 120 twice daily, and trazodone. PHYSICAL EXAM: PRESENTING VITALS: Temperature 36.6, blood pressure 96/66, pulse 84, breathing 16 ti mes a minute, and 97% on 2 L. GENERAL: No acute distress. HEENT: Sclerae anicteric. Oropharynx c lear. Mucous membranes are moist. NECK: Supple without lymphadenopathy. Cannot assess JVD. LUNGS : Clear to auscultation bilaterally, although it is a poor quality exam. HEART: S1 and S2 without murmurs. ABDOMEN: Obese and soft. LOWER EXTREMITIES: Without edema. Calves are nontender. SKIN: Without rash. NEUROLOGIC: Exam is nonfocal. DIAGNOSTIC STUDIES: Sodium is 139, potassium 4.9, chloride 97, and bicarbonate 21. During his previ ous admission, he had elevated bicarbonate in the mid 30s. BUN is 48, and creatinine is 1.5. Baseli ne are about 30 and 1.0. Glucose 72. Troponin 0.00. Coags show an elevated PTT of 20, otherwise un remarkable. White count 17.4, which is high, although his baseline runs about 11. Hematocrit 34, wh ich is baseline. Platelets 267. Chest x-ray interpreted by ky shows no acute cardiopulmonary diseas e. EKG interpreted by ky shows sinus at 83 with normal axis and slightly prolonged QT. I have discussed case with Dr. Khadar Smith. ASSESSMENT/PLAN: A 52-year-old gentleman with chest pain syndrome and chronic hypoxemic respiratory failure. 1. Chest pain syndrome. He has a normal chest x-ray here without cause. There is no trauma. He willard s had a normal angiogram, and he has been taking Xarelto, so I think further workup can be deferred a t this time. 2. Chronic hypoxemic respiratory failure. Desaturated to the 80s in the room. He will need to be d ischarged with oxygen at which point he is discharged. 3. Acute kidney injury. I suspect he is over diuresed. We will hold off on his Lasix. 4. Leukocytosis. There is no apparent cause for this. The patient looks well. We will follow. We will repeat it in the morning. 5. Atrial fibrillation. Continue his sotalol and Xarelto. DISPOSITION: Admitted to inpatient status for ongoing evaluation of his medical problems, including acute kidney injury. /[id number]/MODL
[2018-07-13] MEDS: SOTALOL HCL 80 MG TAB PO SCH (19:59)
[2018-07-13] MEDS: ACETAMINOPHEN 325 MG TAB PO PRN (20:01)
[2018-07-14] MEDS: LORazepam 1 MG TAB PO PRN ×3 (00:20→16:55)
[2018-07-14] MEDS: ACETAMINOPHEN 325 MG TAB PO PRN ×4 (00:20→20:54)
[2018-07-14 04:21] LABS: PLATELET COUNT 255 10^3/uL (150-400)
--- NOTE | 2018-07-14 08:14 | ASMTLACE ---
LM Comorbidities - select Answers: Chronic pulmonary disease all that apply Congestive heart failure Coronary Artery Disease Opioid dependence / Chronic pain Previous myocardial infarction Other Notes: AFib; PE; HTN # of Emergency department Answers: 3-4 visits in the last 6 months Score: 15 Date Signed: 07/14/2018 08:14 AM Electronically Signed By:Deborah Liu
[2018-07-14] MEDS: RIVAROXABAN 20 MG TAB PO SCH (08:40)
[2018-07-14] MEDS: SOTALOL HCL 80 MG TAB PO SCH ×2 (08:40→20:55)
--- NOTE | 2018-07-14 10:05 | PDMN ---
Medical Necessity Medical necessity: Pt meets IP criteria as of 07/13/2018 per and SHAR[facility] M-[id number]; est los > 2 mn for ongoing tx and management of acute kidney injury with electrolyte disturbances, hypoxemia and chest pain; requiring serial labs and cardiac monitoring.
[2018-07-14] MEDS ORDERED: POLYETHYLENE GLYCOL 3350 17 GM PKT PO PRN (13:34)
[2018-07-14] MEDS ORDERED: MAGNESIUM CITRATE 300 ML BOTTLE PO PRN (13:34)
--- NOTE | 2018-07-14 15:01 | ASMTCMCOM ---
CM Note CM Note Notes: Pt is a 52 y/o man admitted for dyspnea, chest pain and hx of chronic chf. Pt was discharged from [facility] on 07/07. CM spoke to Penelope w/ [facility] and she reports that pt no longer has medicaid and the ultc-100 end date is 07/06. Penelope will check in with Marlen Santiago to see if he can return back. CM initiated ultc-100 and submitted it to [facility]. Denise will start ltc medicaid application and meet w/ pt 1 on . Therapies have been ordered and awaiting recommendations. Pt is requesting for a pain management doctor to see him. Pt reports that he cannot be on the streets because he requires 24/7 o2. Pt is going to be seen by pulm. Pt has been staying in a motel but reports that he does not have any money. CM to follow. Plan: TBD Date Signed: 07/14/2018 03:01 PM Electronically Signed By:KIM Umaña
--- NOTE | 2018-07-14 15:18 | ASMTCMCOM ---
CM Note CM Note Notes: Penelope reports that pt is not allowed to return. Reports that pt was verbally abusive towards roommate and staff. CARLOS EDUARDO spoke to Curry at [facility]. Curry reports that pts ultc-100 doesn't until 08/05/18. Curry reports that since pt will not be returning to [place] pt will need to have a new assessment. Multiple referrals sent to SNFs. CARLOS EDUARDO notified [facility] of this case. Date Signed: 07/14/2018 03:17 PM Electronically Signed By:KIM Umaña
--- NOTE | 2018-07-14 15:21 | HOSPPROG ---
Hospitalist Progress Note Assessment/Plan: 52 yo male admitted with acute on chronic chest pain. He recently had an unremarkable cardiac cath. His EKG is unchanged. #Dyspnea #Acute Kidney Injury -Likely from diuresis #chest pain, acute on chronic #Afib, on Sotalol #chronic Anticoagulation #Obesity #Hx of P.E Plan: He has mild wheezing on exam. The etiology of the dyspnea is likely multifactorial to include Obesity Hypoventilation and possible RAD. Will try a trial of steroid burst and schedule nebs. He is requesting a pulm consult and we will get one tomorrow to determine if steroids help. will cont supplemental O2 and he will need this on discharge The FINESSE is likely from over diuresis. Will cont to hold Lasix for now and he will likely need to decrease his home dosing. PT eval cont inpatient Subjective: still with SOB. still with chest pain. afebrile Objective: Vital Signs Temp Pulse Resp BP Pulse Ox 36.8 C 74 14 115/86 H 96 07/14/18 15:12 07/14/18 15:12 07/14/18 15:12 07/14/18 15:12 07/14/18 15:12 Laboratory Results 07/14/18 03:20 07/14/18 03:20 07/13/18 07/14/18 07/15/18 05:59 05:59 05:59 Intake Total 2350 Output Total 100 Balance 2250 PT 12.5 SEC (12.0-15.0) 07/13/18 13:45 INR 0.91 (0.83-1.16) 07/13/18 13:45 - Physical Exam Constitutional: chronically ill appearing Eyes: PERRL Ears, Nose, Mouth, Throat: moist mucous membranes, hearing normal Cardiovascular: regular rate and rhythym, edema (trace) Respiratory: reduced air movement, expiratory wheeze, No rhonchi Gastrointestinal: normoactive bowel sounds, soft, non-tender abdomen Skin: warm Neurologic: AAOx3 Psychiatric: interacting appropriately, not anxious, not encephalopathic Lymph, Heme, Immunologic: No petechiae ICD10 Worksheet Patient Problems: Problems Problem Status Onset Chest pain Acute Dyspnea Acute Atrial fibrillation Acute Chronic pain Acute
[2018-07-14] MEDS: ALBUTEROL 3 ML DEYVIAL IH SCH ×2 (16:31→20:01)
[2018-07-14] MEDS: predniSONE 20 MG TAB PO SCH (16:55)
[2018-07-14] MEDS: SENNOSIDES/DOCUSATE SODIUM TAB PO SCH (20:54)
[2018-07-14] MEDS: ATORVASTATIN CALCIUM 10 MG TAB PO SCH (20:55)
[2018-07-14] MEDS: PREGABALIN 100 MG CAP PO SCH (20:55)
[2018-07-14] MEDS: traZODone 50 MG TAB PO SCH (20:55)
--- NOTE | 2018-07-14 23:01 | CPEKG ---
Test Reason : OPEN Blood Pressure : / mmHG Vent. Rate : 083 BPM Atrial Rate : 083 BPM P-R Int : 128 ms QRS Dur : 093 ms QT Int : 428 ms P-R-T Axes : 043 -03 034 degrees QTc Int : 503 ms Sinus rhythm Low voltage, precordial leads Prolonged QT interval Confirmed by Theodore Godoy ([id number]) on 07/14/2018 11:01:20 PM Referred By: Confirmed By:Theodore Godoy
[2018-07-15] MEDS: LORazepam 1 MG TAB PO PRN ×3 (01:06→20:25)
[2018-07-15] MEDS: ACETAMINOPHEN 325 MG TAB PO PRN ×4 (01:07→20:29)
[2018-07-15 04:28] LABS: PLATELET COUNT 210 10^3/uL (150-400)
[2018-07-15] MEDS: ALBUTEROL 3 ML DEYVIAL IH SCH ×4 (06:13→21:02)
[2018-07-15] MEDS: PREGABALIN 100 MG CAP PO SCH ×2 (09:04→20:25)
[2018-07-15] MEDS: SOTALOL HCL 80 MG TAB PO SCH ×2 (09:04→20:26)
[2018-07-15] MEDS: RIVAROXABAN 20 MG TAB PO SCH (09:04)
[2018-07-15] MEDS: SENNOSIDES/DOCUSATE SODIUM TAB PO SCH ×2 (09:04→20:24)
[2018-07-15] MEDS: CYANO/VITAMIN B12 1000 MCG TAB PO SCH (09:04)
[2018-07-15] MEDS: predniSONE 20 MG TAB PO SCH (09:05)
--- NOTE | 2018-07-15 12:53 | HOSPPROG ---
Hospitalist Progress Note Assessment/Plan: 52 yo male admitted with acute on chronic chest pain. He recently had an unremarkable cardiac cath. His EKG is unchanged. #Dyspnea #Acute Kidney Injury, resolved -Likely from diuresis #chest pain, acute on chronic, improving since starting Prednisone #RAD/acute bronchitis -cont with Prednisone -overall feels better since starting Prednisone -cont schedule nebs #Afib, on Sotalol #chronic Anticoagulation #CHF: will restart Lasix at 40mg daily today #Obesity #Hx of P.E #Hyperkalemia: expect improvement with Lasix today Plan: per above. PT eval pending cont inpatient Subjective: cp and sob are improving. still on supplemental O2. feels better Objective: Vital Signs Temp Pulse Resp BP Pulse Ox 36.7 C 69 14 127/84 H 92 07/15/18 11:22 07/15/18 11:33 07/15/18 11:33 07/15/18 11:22 07/15/18 11:33 Laboratory Results 07/15/18 03:30 07/15/18 03:30 07/14/18 07/15/18 07/16/18 05:59 05:59 05:59 Intake Total 2350 1100 Output Total 100 350 Balance 2250 1100 -350 PT 12.5 SEC (12.0-15.0) 07/13/18 13:45 INR 0.91 (0.83-1.16) 07/13/18 13:45 - Physical Exam Constitutional: no apparent distress Eyes: PERRL Ears, Nose, Mouth, Throat: moist mucous membranes Cardiovascular: regular rate and rhythym, edema (trace) Respiratory: no respiratory distress, expiratory wheeze Gastrointestinal: normoactive bowel sounds Skin: warm Neurologic: AAOx3 Psychiatric: interacting appropriately, not anxious, not encephalopathic Lymph, Heme, Immunologic: No petechiae ICD10 Worksheet Patient Problems: Problems Problem Status Onset Chest pain Acute Dyspnea Acute Atrial fibrillation Acute Chronic pain Acute
[2018-07-15] MEDS: FUROSEMIDE 40 MG TAB PO SCH (13:16)
[2018-07-15] MEDS ORDERED: predniSONE 20 MG TAB PO ONE (13:45)
--- NOTE | 2018-07-15 13:55 | ASMTCMCOM ---
CM Note CM Note Notes: SELENA Berger worked w/ pt and is clearing him without any needs. [facility] will still need to come assess pt. Bertin from [facility] came and assessed pt. Bertin will need to speak w/ the administrators before making a decision. Multiple SNFs have declined pt at this time. Pt has a power wheelchair at [facility]. Pt reports that he called them yesterday and they are holding it for him along w/ a sack of clothes and a bag pack. CM to follow. Plan: TBD Date Signed: 07/15/2018 01:54 PM Electronically Signed By:KIM Umaña
[2018-07-15] MEDS: traZODone 50 MG TAB PO SCH (20:24)
[2018-07-15] MEDS: ATORVASTATIN CALCIUM 10 MG TAB PO SCH (20:24)
[2018-07-15] MEDS: MELATONIN 3 MG TAB PO PRN (20:39)
[2018-07-16] MEDS: ACETAMINOPHEN 325 MG TAB PO PRN ×4 (00:34→21:51)
[2018-07-16] MEDS: LORazepam 1 MG TAB PO PRN ×3 (03:06→18:01)
[2018-07-16] MEDS: ALBUTEROL 3 ML DEYVIAL IH SCH ×4 (05:47→20:43)
[2018-07-16] MEDS: SENNOSIDES/DOCUSATE SODIUM TAB PO SCH ×2 (09:14→21:52)
[2018-07-16] MEDS: predniSONE 20 MG TAB PO SCH (09:14)
[2018-07-16] MEDS: FUROSEMIDE 40 MG TAB PO SCH (09:14)
[2018-07-16] MEDS: CYANO/VITAMIN B12 1000 MCG TAB PO SCH (09:15)
[2018-07-16] MEDS: RIVAROXABAN 20 MG TAB PO SCH (09:15)
[2018-07-16] MEDS: SOTALOL HCL 80 MG TAB PO SCH ×2 (09:15→21:52)
[2018-07-16] MEDS: PREGABALIN 100 MG CAP PO SCH ×2 (09:15→21:52)
[2018-07-16] MEDS ORDERED: OXYMETAZOLINE 30 ML NASAL SPRAY EACHNARE ONE (12:15)
--- NOTE | 2018-07-16 13:01 | HOSPPROG ---
Hospitalist Progress Note Assessment/Plan: 52 yo male admitted with acute on chronic chest pain. He recently had an unremarkable cardiac cath. His EKG is unchanged. #Dyspnea #Acute Kidney Injury, resolved -Likely from diuresis #chest pain, acute on chronic, improving since starting Prednisone #RAD/acute bronchitis -cont with Prednisone -overall feels better since starting Prednisone -cont schedule nebs #Afib, on Sotalol #chronic Anticoagulation #CHF: cont Lasix at 40mg daily today #Obesity #Hx of P.E #Hyperkalemia: expect improvement with Lasix today Plan: He is refusing titration off the o2 and is still on 5 L O2 overall appears to be improving cont with steroids cont with current diuretics dose repeat CXR in a.m. Can hopefully discharge soon Subjective: still with SOB but feels better. Still on 5 L O2 but he is refusing to titrate O2 down. Objective: Vital Signs Temp Pulse Resp BP Pulse Ox 37.0 C 90 18 124/66 H 99 07/16/18 12:00 07/16/18 12:00 07/16/18 12:00 07/16/18 12:00 07/16/18 12:00 Laboratory Results 07/15/18 03:30 07/16/18 03:30 07/15/18 07/16/18 07/17/18 05:59 05:59 05:59 Intake Total 1100 1000 Output Total 650 Balance 1100 350 PT 12.5 SEC (12.0-15.0) 07/13/18 13:45 INR 0.91 (0.83-1.16) 07/13/18 13:45 - Physical Exam Constitutional: no apparent distress Eyes: PERRL Ears, Nose, Mouth, Throat: moist mucous membranes, hearing normal, ears appear normal Cardiovascular: regular rate and rhythym, edema (trace) Respiratory: clear to auscultation Gastrointestinal: normoactive bowel sounds, soft, non-tender abdomen Skin: warm Neurologic: AAOx3 Psychiatric: interacting appropriately, not anxious, not encephalopathic Lymph, Heme, Immunologic: No petechiae ICD10 Worksheet Patient Problems: Problems Problem Status Onset Chest pain Acute Dyspnea Acute Atrial fibrillation Acute Chronic pain Acute
[2018-07-16] MEDS ORDERED: HYDROmorphONE/DILAUDID 1 MG/ML INJ IVP ONE (15:30)
[2018-07-16] MEDS: MELATONIN 3 MG TAB PO PRN (21:51)
[2018-07-16] MEDS: traZODone 50 MG TAB PO SCH (21:52)
[2018-07-16] MEDS: ATORVASTATIN CALCIUM 10 MG TAB PO SCH (21:52)
[2018-07-17] MEDS: LORazepam 1 MG TAB PO PRN ×3 (00:22→20:07)
[2018-07-17] MEDS: ALBUTEROL 3 ML DEYVIAL IH SCH ×4 (04:57→19:25)
[2018-07-17] MEDS: ACETAMINOPHEN 325 MG TAB PO PRN ×4 (05:32→22:02)
[2018-07-17] MEDS: RIVAROXABAN 20 MG TAB PO SCH (08:54)
[2018-07-17] MEDS: FUROSEMIDE 40 MG TAB PO SCH (08:54)
[2018-07-17] MEDS: SOTALOL HCL 80 MG TAB PO SCH ×2 (08:54→20:06)
[2018-07-17] MEDS: SENNOSIDES/DOCUSATE SODIUM TAB PO SCH ×2 (08:54→20:07)
[2018-07-17] MEDS: CYANO/VITAMIN B12 1000 MCG TAB PO SCH (08:54)
[2018-07-17] MEDS: predniSONE 20 MG TAB PO SCH (08:54)
[2018-07-17] MEDS: PREGABALIN 100 MG CAP PO SCH (08:55)
--- NOTE | 2018-07-17 09:56 | HOSPPROG ---
Hospitalist Progress Note Assessment/Plan: 52 yo male admitted with acute on chronic chest pain. He recently had an unremarkable cardiac cath. His EKG is unchanged. #Dyspnea, much improved. He is still on high amounts of O2 because he refuses to wean off the O2. His lung exam is clear. #Acute Kidney Injury, resolved -Likely from diuresis #chest pain, acute on chronic, resolved, no issues today #RAD/acute bronchitis, would taper starting tomorrow -cont with Prednisone -overall feels better since starting Prednisone -cont schedule nebs #Afib, on Sotalol #chronic Anticoagulation #CHF: cont Lasix at 40mg daily. Did not tolerated BID dosing #chronic pain syndrome, back pain -No IV Dilaudid -Will increase Lyrica -Start MS Contin #Obesity #Hx of P.E #Hyperkalemia: will recheck BMP now #Generalized Weakness: requires a walker. PT/OT Plan: He is refusing titration off the o2 and is still on 5 L O2 overall appears to be improving cont with steroids cont with current diuretics dose Can hopefully discharge soon. 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 breathing is better. Objective: Vital Signs Temp Pulse Resp BP Pulse Ox 36.4 C 80 19 131/81 H 100 07/17/18 08:00 07/17/18 08:00 07/17/18 08:00 07/17/18 08:00 07/17/18 08:00 Laboratory Results 07/15/18 03:30 07/16/18 03:30 07/16/18 07/17/18 07/18/18 05:59 05:59 05:59 Intake Total 1000 600 Output Total 650 Balance 350 600 PT 12.5 SEC (12.0-15.0) 07/13/18 13:45 INR 0.91 (0.83-1.16) 07/13/18 13:45 - Physical Exam Constitutional: no apparent distress Eyes: PERRL Ears, Nose, Mouth, Throat: moist mucous membranes Cardiovascular: regular rate and rhythym, edema (trace LE edema) Respiratory: no respiratory distress, clear to auscultation Gastrointestinal: normoactive bowel sounds, soft, non-tender abdomen Skin: warm Neurologic: AAOx3 Psychiatric: interacting appropriately, not anxious, not encephalopathic Lymph, Heme, Immunologic: No petechiae ICD10 Worksheet Patient Problems: Problems Problem Status Onset Chest pain Acute Dyspnea Acute Atrial fibrillation Acute Chronic pain Acute
[2018-07-17] MEDS: morphINE SR 15 MG TAB PO SCH ×3 (12:29→22:03)
--- NOTE | 2018-07-17 17:09 | ASMTCMCOM ---
CM Note CM Note Notes: Case Management Chart Review for Discharge Support: Patient pending LTC assessment per Curry CM with [facility] to occur likely on Wednesday and potential placement at [facility] or [facility]. [facility] is holding power wheelchair and bag of clothes. CM discussed with hospitalist and RN. CM to follow. Current Discharge Plan: goal is LTC placement, pending [facility] assessment on Wednesday. Date Signed: 07/17/2018 05:09 PM Electronically Signed By:Luzmaria Frankel
[2018-07-17] MEDS: ATORVASTATIN CALCIUM 10 MG TAB PO SCH (20:05)
[2018-07-17] MEDS: PREGABALIN 150 MG CAP PO SCH (20:06)
[2018-07-17] MEDS: traZODone 50 MG TAB PO SCH (20:07)
[2018-07-18] MEDS: ACETAMINOPHEN 325 MG TAB PO PRN ×2 (02:14→20:58)
[2018-07-18] MEDS: LORazepam 1 MG TAB PO PRN ×2 (02:18→14:35)
[2018-07-18] MEDS: ALBUTEROL 3 ML DEYVIAL IH SCH ×2 (04:08→10:47)
[2018-07-18] MEDS: SOTALOL HCL 80 MG TAB PO SCH ×2 (08:36→20:57)
[2018-07-18] MEDS: predniSONE 20 MG TAB PO SCH (08:36)
[2018-07-18] MEDS: FUROSEMIDE 40 MG TAB PO SCH (08:37)
[2018-07-18] MEDS: morphINE SR 15 MG TAB PO SCH ×3 (08:37→22:12)
[2018-07-18] MEDS: CYANO/VITAMIN B12 1000 MCG TAB PO SCH (08:38)
[2018-07-18] MEDS: PREGABALIN 150 MG CAP PO SCH ×2 (08:38→20:57)
[2018-07-18] MEDS: SENNOSIDES/DOCUSATE SODIUM TAB PO SCH ×2 (08:38→20:56)
[2018-07-18] MEDS: RIVAROXABAN 20 MG TAB PO SCH (08:38)
[2018-07-18] MEDS ORDERED: ALBUTEROL 3 ML DEYVIAL IH PRN (13:15)
--- NOTE | 2018-07-18 16:35 | ASMTCMCOM ---
CM Note CM Note Notes: 07/18/2018 Case Management Note Met w/pt multiple times to discuss d/c plan. Pt assessed by Nilda at [facility] and approved for SNF placement. Faxed dozens of referrals to SNF and [facility] across the [facility] area. All have declined. Discussed with [facility]. Met w/pt to discuss discharge plan to [facility]. Provided written info to pt on [facility] program, coordinated entry and community resources. Pt is unhappy with discharge plan, pt does not view self as homeless. Informed pt that [facility] has a concentrator for use at night to address questionable O2 needs. RN reports pt is manipulating O2 when alone in the room. Pt is moving independently in the room when alone. Provided info on palliative care. Pt is agreeable. Faxed referral to [facility] to follow at [facility]. PCP is Dr. Hollie Gutierrez. Planning on commodities broker d/c to [facility]. Anticipating pt will require a cab voucher. Case Management to follow. Date Signed: 07/18/2018 04:34 PM Electronically Signed By:Shelia Gutierrez RN
--- NOTE | 2018-07-18 17:31 | HOSPPROG ---
Hospitalist Progress Note Assessment/Plan: 52 yo male admitted with acute on chronic chest pain. He recently had an unremarkable cardiac cath. His EKG is unchanged. #Chronic respiratory failure: Prior hospitalizations has required 5L which he is on here although has been observed on room air with acceptable saturations. - Wean as able, patient currently refusing #Acute bronchitis: Improving - Tapering prednisone, making nebs PRN #Acute on chronic chest pain: Resolved, no issues. Previous negative ischemic eval. #FINESSE: Resolved, thought 2/2 overdiuresis. #Atrial fibrillation: Chronic. Continue sotalol and xarelto. #Chronic diastolic CHF: Chronically volume overloaded. Continue lasix at 40mg daily (down from BID). #Chronic pain with opioid dependence: Exhibits drug seeking behavior. - MS contin added by previous provider this admission - Continue home oxycodone, lyrica. No IV dilaudid #H/o PE: Anticoagulation as above. #Obesity: Suspect ANKUSH/OHS but no formal eval. #Hyperkalemia: Improved, monitor. #Generalized Weakness: Requires a walker. PT/OT #Homelessness: Recently kicked out of LTC facility. CM has been diligently working on finding a different LTC or SNF but he is either not a candidate or not allowed back at facilities. CM provided resources on [facility] which seems to be his best option vs the street. [facility] has a concentrator for his O2 needs and case management available. Dispo: Plan to discharge to [facility] tomorrow morning. Subjective: Breathing overall improving. Pain stable, not asking for more meds with me. Objective: Vital Signs Temp Pulse Resp BP Pulse Ox 36.6 C 98 18 135/107 H 99 07/18/18 13:17 07/18/18 16:00 07/18/18 16:00 07/18/18 16:00 07/18/18 16:00 Laboratory Results 07/15/18 03:30 07/16/18 03:30 07/17/18 07/18/18 07/19/18 05:59 05:59 05:59 Intake Total 600 2000 1180 Output Total 900 Balance 600 2000 280 PT 12.5 SEC (12.0-15.0) 07/13/18 13:45 INR 0.91 (0.83-1.16) 07/13/18 13:45 - Physical Exam Constitutional: no apparent distress, obese Eyes: PERRL, anicteric sclera, EOMI Ears, Nose, Mouth, Throat: moist mucous membranes, hearing normal, ears appear normal, no oral mucosal ulcers Cardiovascular: regular rate and rhythym, no murmur, rub, or gallop, edema Respiratory: no respiratory distress, reduced air movement, expiratory wheeze ( very subtle) Gastrointestinal: normoactive bowel sounds, soft, non-tender abdomen, no palpable masses Genitourinary: no bladder fullness, no bladder tenderness, no renal bruits Skin: no rashes or abrasions, no fluctuance, no induration Musculoskeletal: full muscle strength, no muscle tenderness, normal joint ROM Neurologic: AAOx3, sensation intact bilaterally Psychiatric: interacting appropriately, not anxious, not encephalopathic, thought process linear ICD10 Worksheet Patient Problems: Problems Problem Status Onset Chest pain Acute Dyspnea Acute Atrial fibrillation Acute Chronic pain Acute
[2018-07-18] MEDS: traZODone 50 MG TAB PO SCH (20:57)
[2018-07-18] MEDS: ATORVASTATIN CALCIUM 10 MG TAB PO SCH (20:58)
[2018-07-19] MEDS: LORazepam 1 MG TAB PO PRN ×4 (03:25→22:19)
[2018-07-19] MEDS: SENNOSIDES/DOCUSATE SODIUM TAB PO SCH ×2 (09:11→20:28)
[2018-07-19] MEDS: PREGABALIN 150 MG CAP PO SCH ×2 (09:11→20:28)
[2018-07-19] MEDS: RIVAROXABAN 20 MG TAB PO SCH (09:11)
[2018-07-19] MEDS: morphINE SR 15 MG TAB PO SCH ×3 (09:11→22:19)
[2018-07-19] MEDS: predniSONE 20 MG TAB PO SCH (09:11)
[2018-07-19] MEDS: CYANO/VITAMIN B12 1000 MCG TAB PO SCH (09:12)
[2018-07-19] MEDS: FUROSEMIDE 40 MG TAB PO SCH (09:12)
[2018-07-19] MEDS: SOTALOL HCL 80 MG TAB PO SCH ×2 (09:12→20:29)
--- NOTE | 2018-07-19 12:34 | PDHOMEO2F ---
Home Oxygen Face to Face Home Orders: I certify that a physician or a nurse practitioner or physician's assistant front office manager has had a [id number] encounter with this patient on the date of this order due to the diagnosis listed, which relates to the primary reason the patient requires home oxygen. Alternative treatments have been tried, or considered, and deemed ineffective. It is anticipated that supplemental oxygen will result in improvement with treatment. Home oxygen qualifying diagnosis: pulmonary embolism Home oxygen secondary diagnosis: copd SpO2 on room air (%): 88 Frequency of home oxygen needed: continuous Home oxygen liters per minute: 5 Home oxygen delivery device: nasal cannula Concentrator: Yes E-tanks for mobility and back up: Yes If ordering portable O2, is the patient mobile in the home?: Yes I certify that, based on these findings, the home oxygen is medically necessary for this patient for the following length of time. Length of time home oxygen needed: 99 years
--- NOTE | 2018-07-19 12:53 | ASMTLACE ---
LACE Length of stay for Answers: 4-6 days current admission Comorbidities - select Answers: Chronic pulmonary disease all that apply Congestive heart failure Coronary Artery Disease Opioid dependence / Chronic pain Previous myocardial infarction Other Notes: AFib; PE; HTN # of Emergency department Answers: 3-4 visits in the last 6 months Score: 19 Date Signed: 07/19/2018 12:52 PM Electronically Signed By:Kathleen Fierro
--- NOTE | 2018-07-19 12:57 | GDS ---
DIAGNOSES: 1. Chest pain with negative previous cardiac workup. 2. History of pulmonary embolism, on anticoagulation. 3. Suspected obesity hypoventilation syndrome. 4. Chronic hypoxic respiratory failure. 5. Dyslipidemia. 6. Atrial fibrillation. 7. Multiple orthopedic injuries. 8. Chronic pain with chronic narcotic dependency. 9. Homelessness, recently discharged from [facility] where he had been in long-term care. PROCEDURES DONE: Telemetry monitoring. HOSPITAL COURSE: The patient is a 52-year-old with chronic pain and continuous narcotic dependency w rosanne presents with chest pain. He had been discharged from [place] 2 days prior after his Medicaid had lapsed. He was discharged without oxygen, presented to the emergency department with chest pain. Over the course of his hospitalization, he was placed on MS Contin for increased pain reduction; rosanne wever, this is a short-term solution, and I will give him 7 days on discharge and he needs to wean of f this as an outpatient. I will continue his usual oxycodone, which he has been on for many years. He was diagnosed with acute bronchitis. He was given antibiotics and prednisone and was feeling bett er at the time of discharge. He has continued his usual Lasix and the rest of his medications were u nchanged. CONDITION ON DISCHARGE: Fair. Vital signs stable. He currently is requiring 5 L nasal cannula, whi ch is his baseline. FOLLOW UP INSTRUCTIONS: He should follow up with [facility]. He should also follow up with his primary care physician or establish care with [facility]. I also gave hi m the numbers of different pain physicians in town. Total time spent with patient on the day of discharge and coordination of care is 35 minutes. /[id number]/MODL
--- NOTE | 2018-07-19 17:02 | ASMTCMCOM ---
CM Note CM Note Notes: Initially today the d/c plan evolved into pt taking a taxi to his hotel, [place], in [place] to orange picker his electric wheelchair. He was then going to access [facility] to take him [facility] his wheelchair [facility] where a bed [facility]. It became too late in the day for him to go to [facility] following his trip to the hotel. Staff were under the impression that his Medicaid had and due to this the RT was unable to get oxygen that would be delivered to the fci. At 4:45 one of the oxygen suppliers confirmed that he did have oxygen, but they would not supply it to a fci. The decision was made to order oxygen first thing tomorrow morning and following this to d/c pt. Pt was told that the d/c plan for today, taxiing him to the hotel, was not being kept in place to occur tomorrow and that tomorrow's plan was the original one where he is transported to [facility], due to his d/c being earlier and allowing for this. [facility] has expressed interest in having pt as a resident. They requested additional information and were to call back this afternoon. They did not. They were called and a message left; a message was also sent through [employer]. If they are able to accept him and CM receives this message prior to his d/c; this plan may become the primary d/c plan. D/C Plan: Currently [facility] Date Signed: 07/19/2018 05:01 PM Electronically Signed By:Kathleen Fierro
[2018-07-19] MEDS: traZODone 50 MG TAB PO SCH (20:28)
[2018-07-19] MEDS: ATORVASTATIN CALCIUM 10 MG TAB PO SCH (20:28)
[2018-07-19] MEDS: ACETAMINOPHEN 325 MG TAB PO PRN (20:37)
[2018-07-19] MEDS: MELATONIN 3 MG TAB PO PRN (20:37)
--- NOTE | 2018-07-19 20:39 | HOSPPROG ---
Hospitalist Progress Note Assessment/Plan: 52 yo male admitted with acute on chronic chest pain. He recently had an unremarkable cardiac cath. His EKG is unchanged. #Chronic respiratory failure: Prior hospitalizations has required 5L which he is on here although has been observed on room air with acceptable saturations. * Continues to required 5lpm which is his baseline * Unable to dc due to difficulty getting oxygen set up in that he is homeless. #Acute bronchitis: Improving * prednisone, nebs. #Acute on chronic chest pain: Resolved, no issues. Previous negative ischemic eval. #FINESSE: Resolved, thought 2/2 overdiuresis. #Atrial fibrillation: Chronic. Continue sotalol and xarelto. #Chronic diastolic CHF: Chronically volume overloaded. Continue lasix at 40mg daily (down from BID). #Chronic pain with opioid dependence: Exhibits drug seeking behavior. * MS amaro added by previous provider this admission * Continue home oxycodone, lyrica. No IV dilaudid * dc fentanyl * agreed to give pt one week supply of MS contin and oxyIR. these were sent to his pharmacy already. He was unable to dc due to difficulty gettin oxygen set up. If he ends up going to skilled then please call pharmacy to cancel his prescriptions. * If he does not dc to snf then he need to establish care with another pain provider and [facility]. #H/o PE: Anticoagulation as above. #Obesity: Suspect ANKUSH/OHS but no formal eval. #Hyperkalemia: Improved, monitor. #Generalized Weakness: Requires a walker. PT/OT #Homelessness: Recently kicked out of LTC facility. CARLOS EDUARDO has been diligently working on finding a different LTC or SNF but he is either not a candidate or not allowed back at facilities. CARLOS EDUARDO provided resources on [facility] which seems to be his best option vs the street. [facility] has a concentrator for his O2 needs and case management available. On the day of dc to [facility], CARLOS EDUARDO informed me that he had to go to his hotel first to get his WC and wasn't going to [facility], It was then impossible to set up oxygen on short notice so dc was canceled. Dispo: Working on dc, see above Subjective: pt new to me this admit and chart reviewed, pain meds working well and he feels good. Objective: Vital Signs Temp Pulse Resp BP Pulse Ox 36.8 C 96 20 165/94 H 99 07/19/18 18:47 07/19/18 20:29 07/19/18 12:00 07/19/18 20:29 07/19/18 18:47 Laboratory Results 07/15/18 03:30 07/16/18 03:30 07/18/18 07/19/18 07/20/18 05:59 05:59 05:59 Intake Total 1999 2780 1200 Output Total 1525 800 Balance 1999 1255 400 PT 12.5 SEC (12.0-15.0) 07/13/18 13:45 INR 0.91 (0.83-1.16) 07/13/18 13:45 - Physical Exam Constitutional: obese Eyes: PERRL Ears, Nose, Mouth, Throat: moist mucous membranes Cardiovascular: regular rate and rhythym, edema Respiratory: no respiratory distress Gastrointestinal: soft, non-tender abdomen Genitourinary: no bladder fullness Skin: warm Musculoskeletal: generalized weakness Neurologic: AAOx3 Psychiatric: interacting appropriately ICD10 Worksheet Patient Problems: Problems Problem Status Onset Chest pain Acute Chronic pain Acute Atrial fibrillation Acute Dyspnea Acute
[2018-07-20] MEDS: LORazepam 1 MG TAB PO PRN ×3 (06:02→21:18)
[2018-07-20] MEDS: ACETAMINOPHEN 325 MG TAB PO PRN ×4 (06:02→21:16)
[2018-07-20] MEDS: CYANO/VITAMIN B12 1000 MCG TAB PO SCH (09:24)
[2018-07-20] MEDS: SOTALOL HCL 80 MG TAB PO SCH ×2 (09:24→21:18)
[2018-07-20] MEDS: SENNOSIDES/DOCUSATE SODIUM TAB PO SCH ×2 (09:24→21:19)
[2018-07-20] MEDS: morphINE SR 15 MG TAB PO SCH ×3 (09:24→21:17)
[2018-07-20] MEDS: RIVAROXABAN 20 MG TAB PO SCH (09:24)
[2018-07-20] MEDS: predniSONE 20 MG TAB PO SCH (09:24)
[2018-07-20] MEDS: PREGABALIN 150 MG CAP PO SCH ×2 (09:24→21:19)
[2018-07-20] MEDS: FUROSEMIDE 40 MG TAB PO SCH (09:25)
--- NOTE | 2018-07-20 10:34 | PDDCSUM ---
Discharge Summary Discharge Summary: DISCHARGE DIAGNOSES: * acute on chronic hypoxemic respiratory failure, multifactorial with obesity hypoventilation syndrome being the most prominent factor * acute bronchitis, with COPD exacerbation * chronic chest pain syndrome with acute exacerbation of pain resolved. 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 * Chronic atrial fibrillation * Chronic pain syndrome with chronic continuous daily narcotic dependence; some aberrant drug-seeking behavior * History of PE * severe debility from deconditioning and the cardiopulmonary disease is mentioned above, severe exertional in capacity * homelessness, has come to a point where there are no senior living facilities that will take him in in this region HOSPITAL COURSE SUMMARY: This patient who has severe chronic cardiopulmonary disease, obesity related illnesses, severe disability of limited ambulation and exertion capacity due to those issues, chronic pain syndrome on chronic narcotics, chronic behavioral issues leading to him not being allowed back into any of the local nursing facilities in this region, as well as other issues comes in complaining of chest pain weakness and shortness of breath. In terms of chest pain he rules out for MN, has no signs of any infectious illness, and has had recent coronary angiography with no significant coronary stenoses. At this time he has evidence of acute on chronic hypoxemic respiratory failure with COPD exacerbation. He had some very mild renal insufficiency with a creatinine of 1.5 which is improved here. He has been treated with bronchodilators steroids and oxygen and symptomatically is remarkably improved. This chest pain is improved back to his baseline chronic pain. At this point he is felt stable for discharge to home as long as he has oxygen. We had recommended that he go to the [facility] but he is declining that and saying he will go to a hotel instead sore arranging to have his oxygen delivered to hotel room. PENDING TEST RESULTS: None MEDICATION CHANGES: No changes in his admission medication list The patient is given a 1 week prescription for his chronic narcotic medications of MS Contin and oxycodone, and he is advised that he will need to find a new prescribing physician for these medicines if he is going to continue taking them FOLLOW-UP PLAN: He is referred to [facility] and has an appointment there for later this week It was strongly recommended the patient that he be is transferred from this hospital to the [facility] for ongoing help with his various social issues and management of his oxygen and medication treatments. However the patient is declining this and is going to hotel. We are setting up home oxygen which will be delivered to his hotel. Greater than 35 minutes bedside and care coordination time today
--- NOTE | 2018-07-20 16:29 | ASMTCMCOM ---
CM Note CM Note Notes: 07/20/2018 Case Management Note Discussed with RT. Only one oxygen company willing to work with pt: [employer]. [employer] expressed concerns about delivering O2 to [facility] as it is not a permanent address for pt. Called [facility]. Accepted pt for 30 day stay. Notified Nilda Lemos with [facility]. Confirmed with [employer] that LTC Medicaid is in process. At Erum's request, arranged transport for [facility] wheel chair tomorrow at 10 am. Hebr discussion with pt re: difficulties placing him and that [facility] is one of the few that considered him. Discussed the community supports [facility] has in place to support pt. Pt found [facility] to be less than desirable. Per RT [facility] has a program with [employer] to provided O2 for pts in similar circumstances as [facility]. Informed Reyes of program. Case Management d/c poc: [facility] rehab at 10 am tomorrow. supervisor logging from [facility]. Case Management to follow. Date Signed: 07/20/2018 04:28 PM Electronically Signed By:Shelia Gutierrez RN
[2018-07-20] MEDS: MELATONIN 3 MG TAB PO PRN (21:16)
[2018-07-20] MEDS: traZODone 50 MG TAB PO SCH (21:16)
[2018-07-20] MEDS: ATORVASTATIN CALCIUM 10 MG TAB PO SCH (21:18)
[2018-07-21] MEDS: ACETAMINOPHEN 325 MG TAB PO PRN (04:38)
[2018-07-21] MEDS: LORazepam 1 MG TAB PO PRN (04:38)
--- NOTE | 2018-07-21 09:09 | PDIAF ---
- Diagnosis Diagnosis: hypox resp failure, R side CHF, deconditioning, chronic pain/narc Code Status: Full Code - Medication Management Discharge Medications: electronically signed and located in the Home Medication List. - Orders Services needed: Registered Nurse, Certified Territory Sales Manager Medical (2 gm sodium per day) , Master Heavy Machinery Assembler, Physical Therapy, Occupational Therapy Isolation Type: None Diet Recommendation: sodium restricted Diet Texture: Regular Texture Diet Equipment: oxygen - Follow Up Care Current Providers and Referrals: [facility],. [Clinic] - As per Instructions Patient,NotPresent [Unknown] - As per Instructions Trent Truong MD [Medical Doctor] - As per Instructions
[2018-07-21] MEDS: SOTALOL HCL 80 MG TAB PO SCH (09:20)
[2018-07-21] MEDS: RIVAROXABAN 20 MG TAB PO SCH (09:20)
[2018-07-21] MEDS: PREGABALIN 150 MG CAP PO SCH (09:20)
[2018-07-21] MEDS: SENNOSIDES/DOCUSATE SODIUM TAB PO SCH (09:20)
[2018-07-21] MEDS: CYANO/VITAMIN B12 1000 MCG TAB PO SCH (09:20)
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
[2018-07-21] MEDS: morphINE SR 15 MG TAB PO SCH (09:21)
[2018-07-21] MEDS: predniSONE 20 MG TAB PO SCH (09:21)
[2018-07-21] MEDS: FUROSEMIDE 40 MG TAB PO SCH (09:22)
[2018-07-21 09:23] VITALS: BP 165/92
--- NOTE | 2018-07-21 10:11 | ASMTDCNOTE ---
Case Management Discharge Discharge Order Complete? Answers: Yes Patient to Obtain Answers: Other Notes: [facility] Medications Transportation Arranged Answers: [facility] Transport will Pick (Date 07/21/2018 10:00 AM & Time) Faxed Final Orders Answers: Yes Notes: [facility] Agency/Facility Transfer Answers: Yes Notes: [facility] Report Printed & Faxed to Receiving Agency Discharge Comments Notes: 07/21/2018 Case Management Note Pt discharged to [facility] SNF for 30 day placement. [facility] wheelchair transport picked up pt. RN called report. Faxed final orders. Date Signed: 07/21/2018 10:10 AM Electronically Signed By:Shelia Gutierrez RN
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
--- NOTE | 2018-07-21 18:50 | PDDCSUM ---
Discharge Summary Discharge Summary: DISCHARGE DIAGNOSES: * acute on chronic hypoxemic respiratory failure, multifactorial with obesity hypoventilation syndrome being the most prominent factor * acute bronchitis, with COPD exacerbation * chronic chest pain syndrome with acute exacerbation of pain resolved. 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 * Chronic atrial fibrillation * Chronic pain syndrome with chronic continuous daily narcotic dependence; some aberrant drug-seeking behavior * History of PE * severe debility from deconditioning and the cardiopulmonary disease is mentioned above, severe exertional in capacity * homelessness, has come to a point where there are no penitentiary facilities that will take him in in this region HOSPITAL COURSE SUMMARY: This patient who has severe chronic cardiopulmonary disease, obesity related illnesses, severe disability of limited ambulation and exertion capacity due to those issues, chronic pain syndrome on chronic narcotics, chronic behavioral issues leading to him not being allowed back into any of the local nursing facilities in this region, as well as other issues comes in complaining of chest pain weakness and shortness of breath. In terms of chest pain he rules out for [place], has no signs of any infectious illness, and has had recent coronary angiography with no significant coronary stenoses. At this time he has evidence of acute on chronic hypoxemic respiratory failure with COPD exacerbation. He had some very mild renal insufficiency with a creatinine of 1.5 which is improved here. He has been treated with bronchodilators steroids and oxygen and symptomatically is remarkably improved. This chest pain is improved back to his baseline chronic pain. At this point he is felt stable for discharge to home as long as he has oxygen. We had recommended that he go to the [facility] but he is declining that and saying he will go to a hotel instead sore arranging to have his oxygen delivered to hotel room. PENDING TEST RESULTS: None MEDICATION CHANGES: No changes in his admission medication list The patient is given a 1 week prescription for his chronic narcotic medications of MS Contin and oxycodone, and he is advised that he will need to find a new prescribing physician for these medicines if he is going to continue taking them FOLLOW-UP PLAN: He is referred to the [facility] and has an appointment there for later this week It was strongly recommended the patient that he be is transferred from this hospital to the [facility] for ongoing help with his various social issues and management of his oxygen and medication treatments. However the patient is declining this and is going to hotel. We are setting up home oxygen which will be delivered to his hotel.
== END 2018-07-21 10:07 | DRG 469 ==
LOC: EDUNIT# → OBSVTOIN 17:38 → INTOOBSV 17:38 → F2W 18:37
PROVIDERS: ADMIT Internal Medicine; ATTEND Internal Medicine
DX: N17.9 Acute kidney failure, unspecified (principal); J96.21 Acute and chronic respiratory failure with hypoxia; I50.32 Chronic diastolic (congestive) heart failure; I50.812 Chronic right heart failure; E66.2 Morbid (severe) obesity with alveolar hypoventilation; J44.1 Chronic obstructive pulmonary disease with (acute) exacerbation; I48.2 Chronic atrial fibrillation; E86.9 Volume depletion, unspecified; J20.9 Acute bronchitis, unspecified; G89.29 Other chronic pain; R07.89 Other chest pain; Z72.89 Other problems related to lifestyle; Z59.0 Homelessness; Z86.711 Personal history of pulmonary embolism; Z79.01 Long term (current) use of anticoagulants
CPT/HCPCS: 84484-PO; 97161-GP; J1170; J7512; J7613